=== PATIENT | male | born 1930 | race Caucasian/White ===

== ENCOUNTER 2016-05-07 17:57 | Emergency (ER) | payer OTHER, BC | END 2016-05-07 18:07 | disposition home or self-care (01) | LOC: CED 17:57 | DX: Z53.8 Procedure and treatment not carried out for other reasons (principal) ==

== ENCOUNTER 2016-05-07 18:29 | Emergency (ER) | payer OTHER, BC ==
[2016-05-07 18:40] VITALS: BP 151/85; TEMP 97.7; O2SAT 91
--- NOTE | 2016-05-07 18:44 | EDPHY ---
H & P Time Seen by Provider: 05/07/16 18:41 HPI/ROS: CHIEF COMPLAINT: Testicle swelling for 1 week HISTORY OF PRESENT ILLNESS: Patient presents with right testicle swelling which has been present for a week and is increasingly today. Symptoms are mild to moderate and worse with palpation but not associated with nausea vomiting or fever. No new urinary symptoms. He self catheterizes and describes urine production, output, color, and odor being stable. No recent injury or trauma. REVIEW OF SYSTEMS: Eye: no change in vision ENT: no sore throat Cardiac: no chest pain or syncope Pulmonary: no cough or SOB Abdomen: no vomiting, diarrhea, abdominal pain Musculoskeletal: Chronic back pain Skin: no rash Neuro: no headache Constitutional: no fever : no urinary symptoms A comprehensive 10 point review of systems is otherwise negative aside from elements mentioned in the history of present illness. PAST MEDICAL HISTORY: Discharge summary dated 07/18/2015 personally reviewed. Includes hyponatremia, chronic pain, urinary retention, hypertension. 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 Social history: Here with and son and [id number]. General Appearance: Alert and conversant, cooperative. Eyes: No scleral icterus. ENT, Mouth: Normal mucous membranes. Respiratory: Normal respiratory effort, breath sounds equal, lungs are clear to auscultation. Cardiovascular: Regular rate and rhythm. Gastrointestinal: Abdomen is soft and non tender. Male : Right testicle is vertical lie but slightly enlarged swollen and tender. No skin changes. No eschar erythema blisters or discoloration in the perineal area. Neurological: Alert and oriented x3. Normally conversant. Able to stand with a walker and transfer into bed. Skin: Warm and dry, no rashes. Musculoskeletal: Patient has spinal kyphosis. Psychiatric: Not agitated. Emergency Department course/MDM: I think it is unlikely that this represents Monica gangrene. Right testicle slightly red and swollen but no other surrounding skin changes, no crepitus on palpation. No history of diabetes. Plan for urinalysis and testicular ultrasound. 2000: Results discussed the patient and family. Urology follow-up next week if not improving. Urinalysis with white blood cells and bacteria, with testicular swelling will treat for UTI with oral Keflex and send a culture. Smoking Status: Former smoker Constitutional: Initial Vital Signs Temperature (C) 36.5 C 05/07/16 18:37 Heart Rate 87 05/07/16 18:37 Respiratory Rate 18 05/07/16 18:37 Blood Pressure 151/85 H 05/07/16 18:37 O2 Sat (%) 91 L 05/07/16 18:37 O2 Delivery Mode Room Air Allergies/Adverse Reactions: No Known Allergies Allergy (Unverified 08/12/10 16:18) Home Medications: Medication Instructions Recorded Lisinopril [Zestril 10 mg (*)] 10 mg PO DAILY 07/23/15 Multivitamins [Multivitamin (*)] 1 each PO DAILY 07/23/15 Polyethylene Glycol 3350 [Miralax 17 gm PO DAILY 07/23/15 17 gm (*)] Pregabalin [Lyrica 75mg (*)] 150 mg PO BID 07/23/15 Tamsulosin HCl [Flomax 0.4 MG (*)] 0.4 mg PO DAILY20 07/23/15 oxyCODONE IR [Oxycodone Ir (*)] 15 mg PO Q4 PRN 07/23/15 oxyCODONE CR [Oxycontin] 20 mg PO BID #0 tab 07/26/15 Cephalexin [Keflex] 500 mg PO QID #28 cap 05/07/16 Medical Decision Making - Diagnostics Imaging: Ultrasound reviewed with Nikhil at 7:35 p.m. shows large right hydrocele otherwise normal. No mass normal epididymitis and no torsion. Differential Diagnosis: Differential considered including but not limited to UTI, testicular torsion, testicular mass, orchitis, hydrocele, epididymitis. - Data Points Laboratory Results: 05/07/16 19:50 Urine Color YELLOW Urine Appearance HAZY Urine pH 5.0 (5.0-7.5) Ur Specific [place] 1.011 (1.002-1.030) Urine Protein NEGATIVE (NEGATIVE) Urine Ketones NEGATIVE (NEGATIVE) Urine Blood NEGATIVE (NEGATIVE) Urine Nitrate NEGATIVE (NEGATIVE) Urine Bilirubin NEGATIVE (NEGATIVE) Urine Urobilinogen NEGATIVE EU EU (0.2-1.0) Ur Leukocyte Esterase 2+ H (NEGATIVE) Urine RBC 3-5 /hpf H /hpf (0-3) Urine WBC 15-25 /hpf H /hpf (0-3) Ur Epithelial Cells NONE SEEN /lpf /lpf (NONE-1+) Urine Bacteria 2+ /hpf H /hpf (NONE SEEN) Ur Culture Indicated? INDICATED H (NI) Urine Glucose NEGATIVE (NEGATIVE) Medications Given: Discontinued Medications Cephalexin HCl (Keflex) 500 mg PO EDNOW ONE PRN Reason: Protocol Stop: 05/07/16 20:13 Last Admin: 05/07/16 20:15 Dose: 500 mg Departure - Departure Disposition: Home, Routine, Self-Care Clinical Impression: Hydrocele, right Condition: Good Instructions: Hydrocele (ED) Referrals: Shilo Olivera MD [Primary Care Provider] - As per Instructions Chacho Jones MD [Medical Doctor] - 5-7 days, if not improved Prescriptions: Cephalexin [Keflex] 500 mg PO QID #28 cap
[2016-05-07 20:04] LABS: COLOR YELLOW; LEUKOCYTE ESTERASE,URINE 2+ (NEGATIVE); NITRITE,URINE NEGATIVE (NEGATIVE)
[2016-05-07 20:07] LABS: BACTERIA 2+ /hpf (NONE SEEN); WBC,URINE 15-25 /hpf (0-3)
[2016-05-07] MEDS ORDERED: CEPHALEXIN 500 MG CAP PO ONE (20:12)
[2016-05-07 20:21] VITALS: PULSE 82; RESP 20
== END 2016-05-07 20:21 | disposition home or self-care (01) ==
DX: N43.3 Hydrocele, unspecified (principal); I10 Essential (primary) hypertension; Z87.891 Personal history of nicotine dependence

== ENCOUNTER 2016-07-06 12:16 | Observation (INO) | payer OTHER, BC ==
[2016-07-06] MEDS ORDERED: NS 500 ML IV ONE (13:34)
[2016-07-06] MEDS ORDERED: ASPIRIN 81 MG CHEWABLE TAB PO ONE (13:34)
--- NOTE | 2016-07-06 13:34 | EDPHY ---
H & P Time Seen by Provider: 07/06/16 13:05 HPI/ROS: CHIEF COMPLAINT: Lethargy "I do not feel well" HISTORY OF PRESENT ILLNESS: Patient is an 85-year-old male who presents emergency department with generalized complaints. The patient states that he has not felt well for the past 1-2 days. His daughter was concerned that he may be stressed due to recent move from 1 assisted living to another. They moved yesterday. He missed his medications last evening. Oxygen was not yet delivered and he was off his oxygen yesterday as well. The patient describes a general feeling of fatigue and weakness. No fevers or chills. No cough shortness of breath. No chest pain. No nausea vomiting. No diarrhea. REVIEW OF SYSTEMS: My complete review of systems is negative except as mentioned in the HPI. Past Medical/Surgical History: Includes hyponatremia, chronic pain, urinary retention, hypertension, biliary abnormal Past surgical history: Back surgery, Whipple procedure Social history: The patient lives in a new residential facility. It is a hybrid between assisted living in [place]. Smoking Status: Former smoker Physical Exam: Vitals noted GENERAL: No acute distress, alert. Cooperative. Eyes closed. Opens eyes to questioning. HEENT: Eyes normal to inspection, normal pharynx, mild dehydration. NECK: No thyromegaly, no lymphadenopathy, supple. RESPIRATORY: Coarse breath sounds bilaterally, no rales, rhonchi or wheezing. CVS: Regular rate and rhythm, no rubs, murmurs, or gallops. ABDOMEN: Soft, nontender, nondistended, no organomegaly. Benign BACK: Normal to inspection, no CVA tenderness. SKIN: Normal color, no rash, warm, dry. No pallor. EXTREMITIES: No pedal edema, no calf tenderness, no Homans sign or cords, no joint swelling. NEURO/PSYCH: Alert and oriented, normal mood and affect, normal motor sensory exam. No obvious cranial nerve deficit. Constitutional: Initial Vital Signs O2 Sat (%) 96 07/06/16 12:20 O2 Delivery Mode Nasal Cannula O2 (L/minute) 2 Allergies/Adverse Reactions: No Known Allergies Allergy (Unverified 08/12/10 16:18) Home Medications: Medication Instructions Recorded Lisinopril [Zestril 10 mg (*)] 10 mg PO DAILY 07/23/15 Multivitamins [Multivitamin (*)] 1 each PO DAILY 07/23/15 Polyethylene Glycol 3350 [Miralax 17 gm PO DAILY 07/23/15 17 gm (*)] Pregabalin [Lyrica 75mg (*)] 150 mg PO BID 07/23/15 Tamsulosin HCl [Flomax 0.4 MG (*)] 0.4 mg PO DAILY20 07/23/15 oxyCODONE IR [Oxycodone Ir (*)] 15 mg PO Q4 PRN 07/23/15 oxyCODONE CR [Oxycontin] 20 mg PO BID #0 tab 07/26/15 Cephalexin [Keflex] 500 mg PO QID #28 cap 05/07/16 Medical Decision Making - Diagnostics EKG Interpretation: EKG shows normal sinus rhythm, normal rate, normal axis, normal intervals. There are no ST or T-wave abnormalities. EKG is normal as interpreted by me. Imaging Results: Imaging Impressions Chest X-Ray 07/06/16 13:34 Impression: 1. Stable presumed rounded atelectasis within the lingula laterally. 2. Mild hazy increased markings at the right lung base that could represent mild dependent edema versus less likely pneumonitis. 3. Chronic bilateral pleural effusions left side greater than right. ED Course/Re-evaluation: In the emergency department I discussed possible etiologies with the patient and his family. I answered all her questions. IV was placed. Patient was given normal saline 500 mL IV for hydration. Laboratory studies, EKG and chest x-ray were ordered. I reviewed the patient's laboratory studies. The patient's potassium is low at 3.1. He was given potassium chloride 60 mEq orally. The patient has a normal CBC. Patient's urine is pending. Troponin is negative. Chest x-ray: The patient has stable pleural effusion. There is mild atelectasis. The patient has mild pneumonitis. I rechecked the patient. He still was sitting in his bed with his eyes closed. He is unwilling to get up. Patient's daughter was in the room. I took further history. She states the patient was unable to get himself out of bed this morning. This is not typical. She was concerned this was secondary the moved. I discussed this with Dr. Land. She accepts the patient. She recommended an ABG. This was ordered. Differential Diagnosis: My differential includes but is not limited to electrolyte abnormality, sugar abnormality, urinary tract infection, dehydration, pneumonia, bronchitis, anxiety, CVA, ACS, acute OH - Data Points Laboratory Results: Laboratory Results 07/06/16 Unknown 07/06/16 Unknown 07/06/16 07/06/16 07/06/16 Unknown Unknown 14:45 WBC 7.47 10^3/uL 10^3/uL (3.80-9.50) RBC 4.72 10^6/uL 10^6/uL (4.40-6.38) Hgb 13.7 g/dL g/dL (13.7-17.5) Hct 41.4 % % (40.0-51.0) MCV 87.7 fL fL (81.5-99.8) MCH 29.0 pg pg (27.9-34.1) MCHC 33.1 g/dL g/dL (32.4-36.7) RDW 14.4 % % (11.5-15.2) Plt Count 237 10^3/uL 10^3/uL (150-400) MPV 10.4 fL fL (8.7-11.7) Neut % (Auto) 78.0 % H % (39.3-74.2) Lymph % (Auto) 15.4 % % (15.0-45.0) [place] % (Auto) 5.5 % % (4.5-13.0) Eos % (Auto) 0.5 % L % (0.6-7.6) Baso % (Auto) 0.1 % L % (0.3-1.7) Nucleat RBC Rel Count 0.0 % % (0.0-0.2) Absolute Neuts (auto) 5.82 10^3/uL 10^3/uL (1.70-6.50) Absolute Lymphs (auto) 1.15 10^3/uL 10^3/uL (1.00-3.00) Absolute Monos (auto) 0.41 10^3/uL 10^3/uL (0.30-0.80) Absolute Eos (auto) 0.04 10^3/uL 10^3/uL (0.03-0.40) Absolute Basos (auto) 0.01 10^3/uL L 10^3/uL (0.02-0.10) Absolute Nucleated RBC 0.00 10^3/uL 10^3/uL (0-0.01) Immature Gran % 0.5 % % (0.0-1.1) Immature Gran # 0.04 10^3/uL 10^3/uL (0.00-0.10) Sodium 135 mEq/L mEq/L (134-144) Potassium 3.1 mEq/L L mEq/L (3.5-5.2) Chloride 95 mEq/L L mEq/L (97-110) Carbon Dioxide 29 mEq/l mEq/l (22-31) Anion Gap 11 mEq/L mEq/L (8-16) BUN 11 mg/dL mg/dL (7-23) Creatinine 0.7 mg/dL mg/dL (0.7-1.3) Estimated GFR > 60 Glucose 112 mg/dL H mg/dL (70-100) Calcium 9.2 mg/dL mg/dL (8.5-10.4) Troponin I < 0.012 ng/mL ng/mL (0-0.034) Urine Color Pending Urine Appearance Pending Urine pH Pending Ur Specific [place] Pending Urine Protein Pending Urine Ketones Pending Urine Blood Pending Urine Nitrate Pending Urine Bilirubin Pending Urine Urobilinogen Pending Ur Leukocyte Esterase Pending Urine Glucose Pending Medications Given: Discontinued Medications Aspirin (Aspirin) 324 mg PO EDNOW ONE Stop: 07/06/16 13:35 Last Admin: 07/06/16 14:02 Dose: 324 mg Sodium Chloride (Ns) 500 mls @ 0 mls/hr IV ONCE ONE PRN Reason: As Directed Stop: 07/06/16 13:35 Last Admin: 07/06/16 14:02 Dose: 500 mls Potassium Chloride (Potassium Chloride Oral Liquid) 60 meq PO EDNOW ONE Stop: 07/06/16 14:25 Last Admin: 07/06/16 14:33 Dose: 60 meq Departure - Departure Disposition: [facility] Clinical Impression: Weakness, Hypokalemia, Hypercalcemia Condition: Good Referrals: Patient,NotPresent [Unknown] - As per Instructions
[2016-07-06 13:39] LABS: % IMMATURE GRANULYOCYTES 0.5 % (0.0-1.1); ABSOLUTE IMMATURE GRANULOCYTES 0.04 10^3/uL (0.00-0.10); ADD DIFF? NO; ADD MORPH? NO; ADD SCAN? NO; ATYPICAL LYMPHOCYTE FLAG 0 (0-99); FRAGMENT RBC FLAG 0 (0-99); HEMATOCRIT 41.4 % (40.0-51.0); HEMOGLOBIN 13.7 g/dL (13.7-17.5); LEFT SHIFT FLG 0 (0-99); LIPEMIA HEMOLYSIS FLAG 80 (0-99); MEAN CELL HEMOGLOBIN CONCENTR. 33.1 g/dL (32.4-36.7); MEAN CELL VOLUME 87.7 fL (81.5-99.8); MEAN PLATELET VOLUME 10.4 fL (8.7-11.7); PLATELET CLUMPS FLAG 0 (0-99); PLATELET COUNT 237 10^3/uL (150-400); RED BLOOD CELL COUNT 4.72 10^6/uL (4.40-6.38); RED CELL DISTRIBUTION WIDTH 14.4 % (11.5-15.2)
[2016-07-06 13:46] LABS: ANION GAP 11 mEq/L (8-16); CALCIUM 9.2 mg/dL (8.5-10.4); CARBON DIOXIDE 29 mEq/l (22-31); CHLORIDE 95 mEq/L (97-110); CREATININE 0.7 mg/dL (0.7-1.3); GLOMERULAR FILTRATION RATE > 60; GLUCOSE 112 mg/dL (70-100); POTASSIUM 3.1 mEq/L (3.5-5.2); SODIUM 135 mEq/L (134-144)
[2016-07-06 13:58] LABS: TROPONIN I < 0.012 ng/mL (0-0.034)
--- NOTE | 2016-07-06 14:00 | CPEKG ---
Heart Rate: 86 RR Interval: 698 P-R Interval: 196 QRSD Interval: 102 QT Interval: 392 QTC Interval: 469 P [place]: 26 QRS [place]: 55 T Wave [place]: 9 EKG Severity - BORDERLINE ECG - EKG Impression: SINUS RHYTHM EKG Impression: PROBABLE LEFT ATRIAL ABNORMALITY Electronically Signed By: Natasha Fox 06-Jul-2016 15:32:58
[2016-07-06] MEDS ORDERED: POTASSIUM CL 20 MEQ/15 ML UDCUP PO ONE (14:24)
[2016-07-06 15:16] LABS: COLOR YELLOW; LEUKOCYTE ESTERASE,URINE TRACE (NEGATIVE); NITRITE,URINE NEGATIVE (NEGATIVE)
[2016-07-06 15:27] LABS: RBC,URINE 15-25 /hpf (0-3)
[2016-07-06 15:52] LABS: BASE EXCESS 5.2 mEq/L (-2.5-2.5); BICARBONATE 30 mEq/L (22-26); MEASURED OXYGEN SATURATION 98 % (92-95); PCO2 46 mmHg (34-38); PO2 108 mmHg (65-75); TCO2 31 mEq/L (23-27)
[2016-07-06 15:54] LABS: O2 CONCENTRATION LITERS 2.5 LITERS
[2016-07-06] MEDS ORDERED: ACETAMINOPHEN 325 MG TAB PO PRN (17:24)
[2016-07-06] MEDS ORDERED: ONDANSETRON 4 MG/2 ML VIAL IVP PRN (17:24)
[2016-07-06] MEDS ORDERED: ONDANSETRON DISINTEGRATING 4 MG TAB PO PRN (17:24)
[2016-07-06] MEDS ORDERED: POLYETHYLENE GLYCOL 3350 17 GM PKT PO PRN (17:54)
[2016-07-06] MEDS ORDERED: LACTULOSE 20 GM/30 ML UDCUP PO PRN (17:54)
[2016-07-06] MEDS ORDERED: BISACODYL 10 MG SUPP PR PRN (17:54)
[2016-07-06] MEDS ORDERED: MAGNESIUM HYDROXIDE 30 ML UDCUP PO PRN (17:54)
--- NOTE | 2016-07-06 18:59 | GHP ---
[f rep st] HISTORY AND PHYSICAL DATE OF ADMISSION: 07/06/2016 CHIEF COMPLAINT: Abdominal pressure, "Not feeling well." HISTORY OF PRESENT ILLNESS: Patient is an 85-year-old male with history of hyponatremia, chronic back pain from spinal stenosis, urinary retention, presenting with abdominal pressure starting today. He thinks pressure may be due to stress of moving from his assisted living to [place] yesterday. He did miss his home medications last evening and did not have his oxygen delivered, so was off that. No bowel movement in 2-3 days. Reports such large stools at home that he has to cut them with a knife to prevent clogging the toilet. He denies any fevers, chills, or sweats. No nausea, vomiting, or diarrhea. No chest pain. Has been weaning off his pain medications with the use of Nucynta. Has previously been on OxyContin. Reports decreased p.o. intake over the last couple days with the stress of moving. REVIEW OF SYSTEMS: I completed a 10-point review of systems, negative except as noted in HPI. PAST MEDICAL HISTORY: 1. Hypertension, diastolic heart failure. 2. Anemia of chronic disease. 3. Thyroid nodule. 4. History of noncancerous pancreatic mass. 5. Spinal stenosis. 6. Chronic hypoxemic respiratory failure. Using oxygen at night. PAST SURGICAL HISTORY: 1. 8 back surgeries. 2. Whipple procedure. 3. Neck surgery. FAMILY HISTORY: Father with colon cancer. Mother age at 97 of natural causes. ALLERGIES: No known drug allergies. HOME MEDICATIONS: 1. Oxycodone 15 mg b.i.d. p.r.n. 2. Vitamin B. 3. Nucynta 250 mg q.12. 4. Flomax 0.4. 5. Senna. 6. Pregabalin 150 mg b.i.d. 7. Multivitamin. 8. Hydrochlorothiazide 25. 9. Iron sulfate 325 mg daily. PHYSICAL EXAM: VITAL SIGNS: Temperature 36.5, blood pressure 145/82, heart rate 70s, respirations 18, 95% on 2 L. GENERAL: Patient is sitting up in bed. No acute distress. HEENT: PERRLA. EOMI. Oropharynx clear. CV: Regular rate and rhythm. No murmurs, gallops, or rubs. LUNGS: Clear to auscultation bilaterally. ABDOMEN: Soft. Mild umbilical tenderness to palpation. Quiet bowel sounds. No guarding or rebound. : No suprapubic tenderness. MUSCULOSKELETAL: Moving all 4 extremities. PSYCH: Alert and oriented x3. Very pleasant. LAB: Sodium 135, potassium 3.1, chloride 95, bicarb 30, creatinine 0.7, glucose 112, calcium 9.2. Troponin less than 0.012. TSH is pending. Blood gas : PCO2 of 46, PO2 of 108, pH is 7.4. UA: Trace leuk esterase, RBCs 15-25. WBC 7.4, hemoglobin 13, hematocrit 41, platelets 237. DIAGNOSTIC DATA: EKG is personally reviewed by me. Normal sinus rhythm. Some ST flattening in V2, V3. Chest x-ray is personally reviewed by me. Chronic bilateral pleural effusion, left side greater than right. ASSESSMENT/PLAN: 1. Abdominal pain: Differential includes gastritis, gastroesophageal reflux disease versus anginal equivalent. EKG and troponin are negative for ischemia. Will add LFTs as well as an abdominal x-ray, as patient does report constipation. Low suspicion for infection, as patient is afebrile without leukocytosis. If pain worsens, consider a CT of the abdomen. Add bowel regimen. 2. Fatigue: check TSH 3. Compensated diastolic heart failure: No evidence of volume overload. 4. Anemia of chronic disease. Continue iron. 5. History of pancreatic mass: was benign, s/p Whipple. 6. Spinal stenosis. Continue his home pain medications with bowel regimen, which is likely contributing to his constipation. 7. Diet: Regular. 8. Deep venous thrombosis prophylaxis: Lovenox. 9. Patient warrants observation, admission, given acute abdominal pain. Will trial laxatives and x-ray pending. /[id number]/MODL MTDD
[2016-07-06 19:46] LABS: ALBUMIN 3.3 g/dL (3.5-5.0); BILIRUBIN-CONJUGATED 0.4 mg/dL (0.0-0.5); BILIRUBIN-UNCONJUGATED 0.6 mg/dL (0.0-1.1); TOTAL PROTEIN 6.5 g/dL (6.3-8.2)
[2016-07-06] MEDS ORDERED: TAMSULOSIN HCL 0.4 MG CAP PO SCH (20:00)
[2016-07-06] MEDS ORDERED: TAPENTADOL HCL PO SCH (21:00)
[2016-07-06] MEDS: PREGABALIN 150 MG CAP PO SCH (21:07)
[2016-07-06] MEDS: oxyCODONE IR 15 MG TAB PO PRN (21:10)
[2016-07-07 04:56] VITALS: O2SAT 95
[2016-07-07 06:29] LABS: ANION GAP 6 mEq/L (8-16); CALCIUM 8.4 mg/dL (8.5-10.4); CARBON DIOXIDE 31 mEq/l (22-31); CHLORIDE 98 mEq/L (97-110); CREATININE 0.7 mg/dL (0.7-1.3); GLOMERULAR FILTRATION RATE > 60; GLUCOSE 83 mg/dL (70-100); POTASSIUM 3.5 mEq/L (3.5-5.2); SODIUM 135 mEq/L (134-144)
[2016-07-07 08:49] VITALS: BP 157/83; PULSE 90; RESP 18; TEMP 98.1
[2016-07-07] MEDS: PREGABALIN 150 MG CAP PO SCH (08:57)
[2016-07-07] MEDS ORDERED: SENNOSIDES/DOCUSATE SODIUM TAB PO SCH (09:00)
[2016-07-07] MEDS ORDERED: HYDROCHLOROTHIAZIDE 25 MG TAB PO SCH (09:00)
[2016-07-07] MEDS ORDERED: MULTIVITAMINS 1 EACH TAB PO SCH (09:00)
[2016-07-07] MEDS ORDERED: VITAMIN B COMPLEX 1 EA CAP/TAB PO SCH (09:00)
[2016-07-07] MEDS ORDERED: FERROUS SULFATE 325 MG TAB PO SCH (09:00)
[2016-07-07] MEDS ORDERED: ENOXAPARIN 40 MG/0.4 ML SYR SC SCH (09:00)
[2016-07-07] MEDS: oxyCODONE IR 15 MG TAB PO PRN ×2 (09:04→14:55)
--- NOTE | 2016-07-07 14:23 | PDIAF ---
- Diagnosis Diagnosis: Abdominal Pain Code Status: Full Code - Medication Management Discharge Medications: Medications to Continue on Transfer Multivitamins [Multivitamin (*)] 1 each PO DAILY 07/23/15 [Last Taken 07/22/15] Tamsulosin HCl [Flomax 0.4 MG (*)] 0.4 mg PO DAILY20 07/23/15 [Last Taken ] oxyCODONE IR [Oxycodone Ir (*)] 15 mg PO BID PRN 07/23/15 [Last Taken 07/06/16] Ferrous Sulfate [Ferrous Sulf 325 MG (*)] 325 mg PO DAILY 07/06/16 [Last Taken Unknown] Hydrochlorothiazide [HCTZ (*)] 25 mg PO DAILY 07/06/16 [Last Taken Unknown] Pregabalin [Lyrica] 150 mg PO BID 07/06/16 [Last Taken 07/06/16] Sennosides/Docusate Sodium [Senna-S Tablet] 1 each PO DAILY 07/06/16 [Last Taken Unknown] Tapentadol HCl [Nucynta ER] 250 mg PO Q12 07/06/16 [Last Taken 07/06/16] Vitamin B Complex [Super B-50 Complex] 1 each PO DAILY 07/06/16 [Last Taken Unknown] Discharge Medications: Refer to the Discharge Home Medication list for PRN reason. - Orders Services needed: Home Care, Physical Therapy, Occupational Therapy Home Care Face to Face: I certify that this patient was under my care and that I had the required [id number] encounter meeting the encounter requirements on the discharge day. My findings support the fact that the patient is homebound as defined in CMS Chapter 7 Medicare Benefits Manual 30.1.1, The condition of the patient is such that there exists a normal inability to leave home and consequently, leaving home would require a considerable and taxing effort. - Follow Up Care Current Providers and Referrals: Patient,NotPresent [Unknown] - As per Instructions
--- NOTE | 2016-07-07 14:41 | GDS ---
[f rep st] DISCHARGE SUMMARY FINAL DIAGNOSES: 1. Abdominal pain. 2. Constipation. 3. Chronic pain, on continuous narcotics. 4. Compensated diastolic heart failure. 5. Anemia. 6. History of pancreatic mass, status post Whipple. 7. Spinal stenosis. HOSPITAL COURSE: An 85-year-old man who was admitted with abdominal pain, an abdominal x-ray which showed constipation. Notably, the night before his admission he had missed taking all of his medica tions, including pain medications as well as laxatives and stool softeners. He had a bowel movement later in the evening after he was admitted. When I see him he is comfortable, with no more abdomin al pain. He has ambulated with Physical Therapy, who recommends home PT/OT. I think the reason for his abdominal pain is likely constipation versus missing his pain medications. We will get him byron k on his normal long-term narcotics including Nucynta 250 b.i.d., as well as oxycodone 15 p.r.n. He is discharged in stable condition. /[id number]/MODL
== END 2016-07-07 16:04 | disposition home or self-care (01) ==
LOC: EDUNIT# → F1N 19:35
PROVIDERS: ADMIT Internal Medicine; ATTEND Internal Medicine
DX: K59.00 Constipation, unspecified (principal); R53.1 Weakness; J90 Pleural effusion, not elsewhere classified; E87.6 Hypokalemia; E83.52 Hypercalcemia; I10 Essential (primary) hypertension; J96.11 Chronic respiratory failure with hypoxia; I50.30 Unspecified diastolic (congestive) heart failure; D64.9 Anemia, unspecified; M48.00 Spinal stenosis, site unspecified; G89.29 Other chronic pain; Z87.891 Personal history of nicotine dependence
CPT/HCPCS: 71020; 74020; 93005; 97161; 99285; G0378; G8978; G8979; G8980; J1650

== ENCOUNTER → 2016-08-17 | Outpatient (CLI) | payer OTHER, BC | LOC: FIMAGING 15:31 | PROVIDERS: ATTEND Internal Medicine | DX: J98.11 Atelectasis (principal); J90 Pleural effusion, not elsewhere classified; I51.7 Cardiomegaly ==

== ENCOUNTER → 2016-08-24 | Outpatient (CLI) | payer OTHER, BC | LOC: FIMAGING 14:38 | PROVIDERS: ATTEND Internal Medicine | DX: J90 Pleural effusion, not elsewhere classified (principal) ==

== ENCOUNTER 2016-09-01 14:13 | Inpatient (IN) | payer OTHER, BC ==
--- NOTE | 2016-09-01 14:33 | CPEKG ---
Heart Rate: 99 RR Interval: 606 P-R Interval: 188 QRSD Interval: 112 QT Interval: 376 QTC Interval: 483 P [place]: 26 QRS [place]: 49 T Wave [place]: 8 EKG Severity - ABNORMAL ECG - EKG Impression: SINUS RHYTHM EKG Impression: VENTRICULAR PREMATURE COMPLEX EKG Impression: LEFT ATRIAL ABNORMALITY EKG Impression: NONSPECIFIC INTRAVENTRICULAR CONDUCTION DELAY Electronically Signed By: Geraldo Brar 01-Sep-2016 16:08:49
--- NOTE | 2016-09-01 14:42 | EDPHY ---
H & P Time Seen by Provider: 09/01/16 14:31 HPI/ROS: Chief complaint. Altered mental status HPI. 85-year-old male here for altered mental status. He is normally alert and lucid per his and son. Today he woke up more sleepy and lethargic and confused than usual. Generally weak and not able to ambulate. Normally he walks from his apartment at the [place] to the dining [place] and[place] and has been unable to do this today. He does complain of back and abdominal pain though this is not unusual per and son as he has chronic back pain as well as chronic abdominal pain. He normally takes oxycodone IR but has not taken any medication today. His is not concerned about him taking too many medications. He has recently changed from using oxygen just at night to oxygen during the day as well. No recent fever cough. He self catheterizes. He has chest CT 1 week ago for fluid in his lungs that was apparently normal per his . ROS Constitutional. Generalized weakness Eyes. no problems with vision ENT. no sore throat, no nasal drainage Cardiovascular. no chest pain Respiratory. no shortness of breath, no cough Abdominal. Abdominal pain without vomiting . no problems urinating or diarrhea MS. Back pain Skin. no rash Lymph. no swollen glands Neuro. Can not walk. Confused. Past Medical/Surgical History: Past medical history is significant for back surgery with chronic narcotics. Home oxygen, self catheterization. A Whipple surgery 6 years ago forogged bile duct. Social History: , nonsmoker, no alcohol Smoking Status: Former smoker Physical Exam: General Appearance: Alert well-developed male moderate distress vital signs are stable. Afebrile Eyes: Pupils equal and round no pallor or injection. ENT, Mouth: Mucous membranes are moist. Respiratory: There are no retractions, lungs are clear to auscultation. Cardiovascular: Regular rate and rhythm. Gastrointestinal: Abdomen is diffusely tender. There is no masses. Normal bowel sounds. Neurological: Awake and alert, sensory and motor exams grossly normal. Skin: Warm and dry, no rashes. Musculoskeletal: Neck is supple nontender. Extremities symmetrical, full range of motion. Psychiatric: Oriented only to person Constitutional: Initial Vital Signs Temperature (C) 36.9 C 09/01/16 14:20 Heart Rate 99 09/01/16 14:20 Respiratory Rate 16 09/01/16 14:20 Blood Pressure 177/95 H 09/01/16 14:20 O2 Sat (%) 93 09/01/16 14:20 O2 Delivery Mode Nasal Cannula O2 (L/minute) 2.5 Allergies/Adverse Reactions: No Known Allergies Allergy (Verified 09/01/16 15:34) Home Medications: Medication Instructions Recorded Ferrous Sulfate [Ferrous Sulf 325 325 mg PO DAILY 09/01/16 MG (*)] Hydrochlorothiazide [HCTZ (*)] 25 mg PO DAILY 09/01/16 Multivitamins [Multivitamin (*)] 1 each PO DAILY 09/01/16 Pregabalin [Lyrica] 150 mg PO BID 09/01/16 Sennosides/Docusate Sodium 1 each PO DAILY PRN 09/01/16 [Senna-S Tablet] Tamsulosin HCl [Flomax 0.4 MG (*)] 0.4 mg PO DAILY 09/01/16 Tapentadol HCl [Nucynta ER] 250 mg PO Q12 09/01/16 Vitamin B Complex [B Complex] 1 each PO DAILY 09/01/16 oxyCODONE IR [Oxycodone Ir (*)] 15 mg PO BID 09/01/16 Medical Decision Making - Diagnostics EKG Interpretation: EKG interpreted by me shows normal sinus rhythm with normal interval and axis. QRS is normal without significant ST elevation or depression. No arrhythmia. The rate is 99 Imaging Results: Imaging Impressions Abdomen X-Ray 09/01/16 15:03 Impression: Severe constipation. Chest X-Ray 09/01/16 15:03 Impression: 1. No change in pleuroparenchymal opacity in the left lower lobe and patchy opacity in the right lower lobe. 2. Cardiomegaly. Head CT 09/01/16 15:03 Impression: 1. Moderate atrophy. 2. No acute hemorrhage, hydrocephalus, or mass effect. 3. Cerebrovascular atherosclerosis. 4. No definite acute infarct. 5. Mild microvascular ischemic gliosis. 6. No epidural or subdural hematoma. Findings and recommendations discussed with Emergency Department physician, Geraldo Brar M.D., at 1540 hours, on September 01, 2016. Final report concurs with initial preliminary interpretation. Head CT shows significant atrophy but otherwise nonacute. This is reviewed by me and discussed with Dr. Oconnell Procedures: IV normal saline. Morphine for pain. Zofran for nausea. Catheterization with indwelling catheter ED Course/Re-evaluation: On re-evaluation the patient remains stable but unchanged. He remains confused. I discussed imaging, EKG, laboratory evaluation with the patient and his and son. We discussed treatment plan including recommendation for admission and further evaluation. They expressed understanding and agreement. I consulted and discussed the case with Dr. Gillis, hospitalist, who agrees to the admission Differential Diagnosis: I considered sepsis including pneumonia and urinary tract etiologies. However these do appear to be normal. I have considered patient could have taken too many medications causing confusion. However his is quite sure that he has not taken any extra OxyContin. I considered intracranial bleeding though the initial head CT is normal. I have considered still neurologic etiology as the patient has severe atrophy on his head CT. - Data Points Laboratory Results: Laboratory Results 09/01/16 14:00 09/01/16 14:00 09/01/16 09/01/16 09/01/16 15:15 15:05 14:00 WBC RBC Hgb Hct MCV MCH MCHC RDW Plt Count MPV Neut % (Auto) Lymph % (Auto) [place] % (Auto) Eos % (Auto) Baso % (Auto) Nucleat RBC Rel Count Absolute Neuts (auto) Absolute Lymphs (auto) Absolute Monos (auto) Absolute Eos (auto) Absolute Basos (auto) Absolute Nucleated RBC Immature Gran % Immature Gran # PT INR APTT VBG Lactic Acid 0.9 mmol/L mmol/L (0.7-2.1) Sodium Potassium Chloride Carbon Dioxide Anion Gap BUN Creatinine Estimated GFR Glucose Calcium Total Bilirubin Conjugated Bilirubin Unconjugated Bilirubin AST ALT Alkaline Phosphatase Troponin I Total Protein Albumin Lipase Carcinoembryonic Ag 5.39 ng/mL H ng/mL (0.00-3.00) TSH Urine Color YELLOW Urine Appearance CLEAR Urine pH 8.0 H (5.0-7.5) Ur Specific [place] 1.008 (1.002-1.030) Urine Protein NEGATIVE (NEGATIVE) Urine Ketones 1+ H (NEGATIVE) Urine Blood NEGATIVE (NEGATIVE) Urine Nitrate NEGATIVE (NEGATIVE) Urine Bilirubin NEGATIVE (NEGATIVE) Urine Urobilinogen 2.0 EU H EU (0.2-1.0) Ur Leukocyte Esterase NEGATIVE (NEGATIVE) Urine RBC 1-3 /hpf /hpf (0-3) Urine WBC 1-3 /hpf /hpf (0-3) Ur Epithelial Cells TRACE /lpf /lpf (NONE-1+) Urine Glucose NEGATIVE (NEGATIVE) 09/01/16 09/01/16 09/01/16 14:00 14:00 14:00 WBC 7.22 10^3/uL 10^3/uL (3.80-9.50) RBC 5.13 10^6/uL 10^6/uL (4.40-6.38) Hgb 14.9 g/dL g/dL (13.7-17.5) Hct 44.9 % % (40.0-51.0) MCV 87.5 fL fL (81.5-99.8) MCH 29.0 pg pg (27.9-34.1) MCHC 33.2 g/dL g/dL (32.4-36.7) RDW 14.0 % % (11.5-15.2) Plt Count 243 10^3/uL 10^3/uL (150-400) MPV 10.7 fL fL (8.7-11.7) Neut % (Auto) 84.8 % H % (39.3-74.2) Lymph % (Auto) 9.0 % L % (15.0-45.0) [place] % (Auto) 5.7 % % (4.5-13.0) Eos % (Auto) 0.1 % L % (0.6-7.6) Baso % (Auto) 0.1 % L % (0.3-1.7) Nucleat RBC Rel Count 0.0 % % (0.0-0.2) Absolute Neuts (auto) 6.12 10^3/uL 10^3/uL (1.70-6.50) Absolute Lymphs (auto) 0.65 10^3/uL L 10^3/uL (1.00-3.00) Absolute Monos (auto) 0.41 10^3/uL 10^3/uL (0.30-0.80) Absolute Eos (auto) 0.01 10^3/uL L 10^3/uL (0.03-0.40) Absolute Basos (auto) 0.01 10^3/uL L 10^3/uL (0.02-0.10) Absolute Nucleated RBC 0.00 10^3/uL 10^3/uL (0-0.01) Immature Gran % 0.3 % % (0.0-1.1) Immature Gran # 0.02 10^3/uL 10^3/uL (0.00-0.10) PT 13.3 SEC SEC (12.0-15.0) INR 1.02 (0.83-1.16) APTT 32.0 SEC SEC (23.0-38.0) VBG Lactic Acid Sodium Potassium Chloride Carbon Dioxide Anion Gap BUN Creatinine Estimated GFR Glucose Calcium Total Bilirubin Conjugated Bilirubin Unconjugated Bilirubin AST ALT Alkaline Phosphatase Troponin I Total Protein Albumin Lipase Carcinoembryonic Ag TSH 0.383 uIU/mL L uIU/mL (0.465-4.680) Urine Color Urine Appearance Urine pH Ur Specific [place] Urine Protein Urine Ketones Urine Blood Urine Nitrate Urine Bilirubin Urine Urobilinogen Ur Leukocyte Esterase Urine RBC Urine WBC Ur Epithelial Cells Urine Glucose 09/01/16 14:00 WBC RBC Hgb Hct MCV MCH MCHC RDW Plt Count MPV Neut % (Auto) Lymph % (Auto) [place] % (Auto) Eos % (Auto) Baso % (Auto) Nucleat RBC Rel Count Absolute Neuts (auto) Absolute Lymphs (auto) Absolute Monos (auto) Absolute Eos (auto) Absolute Basos (auto) Absolute Nucleated RBC Immature Gran % Immature Gran # PT INR APTT VBG Lactic Acid Sodium 137 mEq/L mEq/L (134-144) Potassium 3.2 mEq/L L mEq/L (3.5-5.2) Chloride 95 mEq/L L mEq/L (97-110) Carbon Dioxide 31 mEq/l mEq/l (22-31) Anion Gap 11 mEq/L mEq/L (8-16) BUN 12 mg/dL mg/dL (7-23) Creatinine 0.7 mg/dL mg/dL (0.7-1.3) Estimated GFR > 60 Glucose 135 mg/dL H mg/dL (70-100) Calcium 9.3 mg/dL mg/dL (8.5-10.4) Total Bilirubin 1.2 mg/dL mg/dL (0.1-1.4) Conjugated Bilirubin 0.5 mg/dL mg/dL (0.0-0.5) Unconjugated Bilirubin 0.7 mg/dL mg/dL (0.0-1.1) AST 19 IU/L IU/L (17-59) ALT 30 IU/L IU/L (21-72) Alkaline Phosphatase 97 IU/L IU/L (38-126) Troponin I < 0.012 ng/mL ng/mL (0-0.034) Total Protein 7.2 g/dL g/dL (6.3-8.2) Albumin 3.7 g/dL g/dL (3.5-5.0) Lipase 23.0 IU/L IU/L (23-300) Carcinoembryonic Ag TSH Urine Color Urine Appearance Urine pH Ur Specific [place] Urine Protein Urine Ketones Urine Blood Urine Nitrate Urine Bilirubin Urine Urobilinogen Ur Leukocyte Esterase Urine RBC Urine WBC Ur Epithelial Cells Urine Glucose Medications Given: Discontinued Medications Sodium Chloride (Ns) 1,000 mls @ 0 mls/hr IV ONCE ONE; Wide Open PRN Reason: Protocol Stop: 09/01/16 15:03 Last Admin: 09/01/16 15:40 Dose: 1,000 mls Morphine Sulfate (Morphine) 6 mg IVP EDNOW ONE Stop: 09/01/16 15:03 Last Admin: 09/01/16 15:40 Dose: 3 mg Ondansetron HCl (Zofran) 4 mg IVP EDNOW ONE Stop: 09/01/16 15:03 Last Admin: 09/01/16 15:40 Dose: 4 mg Departure - Departure Disposition: [facility] In[facility] Acute Clinical Impression: Altered mental status Qualifiers: Altered mental status type: disorientation Qualified Code(s): R41.0 - Disorientation, unspecified Condition: Fair
[2016-09-01] MEDS ORDERED: NS 1,000 ML IV ONE (15:02)
[2016-09-01] MEDS ORDERED: ONDANSETRON 4 MG/2 ML VIAL IVP ONE (15:02)
[2016-09-01 15:11] LABS: % IMMATURE GRANULYOCYTES 0.3 % (0.0-1.1); ABSOLUTE IMMATURE GRANULOCYTES 0.02 10^3/uL (0.00-0.10); ADD DIFF? NO; ADD MORPH? NO; ADD SCAN? NO; ATYPICAL LYMPHOCYTE FLAG 0 (0-99); FRAGMENT RBC FLAG 0 (0-99); HEMATOCRIT 44.9 % (40.0-51.0); HEMOGLOBIN 14.9 g/dL (13.7-17.5); LEFT SHIFT FLG 0 (0-99); LIPEMIA HEMOLYSIS FLAG 80 (0-99); MEAN CELL HEMOGLOBIN CONCENTR. 33.2 g/dL (32.4-36.7); MEAN CELL VOLUME 87.5 fL (81.5-99.8); MEAN PLATELET VOLUME 10.7 fL (8.7-11.7); PLATELET CLUMPS FLAG 20 (0-99); PLATELET COUNT 243 10^3/uL (150-400); RED BLOOD CELL COUNT 5.13 10^6/uL (4.40-6.38)
[2016-09-01 15:20] LABS: ALANINE AMINOTRANSFERASE 30 IU/L (21-72); ALBUMIN 3.7 g/dL (3.5-5.0); ALKALINE PHOSPHATASE 97 IU/L (38-126); ANION GAP 11 mEq/L (8-16); ASPARTATE AMINOTRANSFERASE 19 IU/L (17-59); BILIRUBIN,TOTAL 1.2 mg/dL (0.1-1.4); BILIRUBIN-CONJUGATED 0.5 mg/dL (0.0-0.5); BILIRUBIN-UNCONJUGATED 0.7 mg/dL (0.0-1.1); CALCIUM 9.3 mg/dL (8.5-10.4); CARBON DIOXIDE 31 mEq/l (22-31); CHLORIDE 95 mEq/L (97-110); CREATININE 0.7 mg/dL (0.7-1.3); GLOMERULAR FILTRATION RATE > 60; GLUCOSE 135 mg/dL (70-100); POTASSIUM 3.2 mEq/L (3.5-5.2); SODIUM 137 mEq/L (134-144); TOTAL PROTEIN 7.2 g/dL (6.3-8.2)
[2016-09-01 15:30] LABS: COLOR YELLOW; LEUKOCYTE ESTERASE,URINE NEGATIVE (NEGATIVE); NITRITE,URINE NEGATIVE (NEGATIVE)
[2016-09-01 15:30] LABS: INR 1.02 (0.83-1.16); PROTIME(PATIENT) 13.3 SEC (12.0-15.0)
[2016-09-01 15:31] LABS: TROPONIN I < 0.012 ng/mL (0-0.034)
[2016-09-01] MEDS ORDERED: ONDANSETRON DISINTEGRATING 4 MG TAB PO PRN (17:23)
[2016-09-01] MEDS ORDERED: ONDANSETRON 4 MG/2 ML VIAL IVP PRN (17:23)
--- NOTE | 2016-09-01 17:31 | PDGENHP ---
History and Physical - Chief Complaint Acute encephalopathy - History of Present Illness primary care provider: Dr. Olivera HPI: 85-year-old male presenting with acute encephalopathy characterized as confusion, disorientation, somnolence with associated myoclonic jerking in his bilateral feet as well as dyskinetic motions his mouth. Onset of symptoms on the morning of presentation when the patient's noted she was unable to arouse him from bed. Duration has been persistent thereafter. The myoclonic movements and dyskinetic motions seemed been somewhat alleviated by raising the patient but his somnolence is quite dense and returns immediately and these movements resume. The patient's reports that prior to onset of symptoms, the patient's mental status had been a good, she reports he is fully oriented and able to engage in conversation about world events. To her knowledge, he was completely asymptomatic on the day prior to this presentation. To her knowledge, he has been taking his oxycodone immediate release once daily, OxyContin twice daily, Nucynta as scheduled. He has not had a bowel movement at least several days. On the morning of presentation, he did not take his morning pain meds. She does report that she was feeling somewhat ill from a likely viral infection several days ago. History Information - Allergies/Home Medication List Allergies/Adverse Reactions: No Known Allergies Allergy (Verified 09/01/16 15:34) Home Medications: Multivitamins [Multivitamin (*)] 1 each PO DAILY 07/23/15 [Last Taken 07/22/15] Tamsulosin HCl [Flomax 0.4 MG (*)] 0.4 mg PO DAILY20 07/23/15 [Last Taken ] oxyCODONE IR [Oxycodone Ir (*)] 15 mg PO BID PRN 07/23/15 [Last Taken 07/06/16] Ferrous Sulfate [Ferrous Sulf 325 MG (*)] 325 mg PO DAILY 07/06/16 [Last Taken Unknown] Hydrochlorothiazide [HCTZ (*)] 25 mg PO DAILY 07/06/16 [Last Taken Unknown] Pregabalin [Lyrica] 150 mg PO BID 07/06/16 [Last Taken 07/06/16] Sennosides/Docusate Sodium [Senna-S Tablet] 1 each PO DAILY 07/06/16 [Last Taken Unknown] Tapentadol HCl [Nucynta ER] 250 mg PO Q12 07/06/16 [Last Taken 07/06/16] Vitamin B Complex [Super B-50 Complex] 1 each PO DAILY 07/06/16 [Last Taken Unknown] I have personally reviewed and updated: family history, medical history, social history, surgical history - Past Medical History Additional medical history: 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 Chronic urinary retention. Chronic hypoxic respiratory failure on supplemental oxygen at all times. Chronic diastolic congestive heart failure. Hypertension. Anemia of chronic inflammatory disease with an iron deficient component. Chronic constipation. Chronic malnutrition. Spinal stenosis. C difficile colitis in 2010 - Surgical History Additional surgical history: Neck surgery. Back surgery. Whipple surgery in 2010. Appendectomy. Uvuloplasty. Unclear date of last colonoscopy - Family History Additional family history: patient's was recently ill with a viral infection, his father had colon cancer - Social History Smoking Status: Former smoker Alcohol Use: Sober Drug Use: None Additional social history: utilizes a walker at baseline, his lives in [place] Review of Systems ROS: 10pt was reviewed & negative except for what was stated in HPI & below Constitutional: Reports: weakness Neurological: Reports: other ( somnolence, myoclonic movements of feet, discontinuing movements of mouth) Physical Exam Temp Pulse Resp BP Pulse Ox 36.9 C 96 16 148/86 H 98 09/01/16 16:00 09/01/16 17:22 09/01/16 17:22 09/01/16 17:22 09/01/16 17:22 O2 (L/minute) 2.5 Constitutional: no apparent distress, appears nourished, not in pain, chronically ill appearing Eyes: anicteric sclera, other ( constricted pupils, equal bilaterally) Ears, Nose, Mouth, Throat: moist mucous membranes, hearing normal, ears appear normal, no oral mucosal ulcers, other ( tonsillar exudate) Cardiovascular: regular rate and rhythym, no murmur, rub, or gallop, No edema Respiratory: reduced air movement ( bilateral bases), No expiratory wheeze, No inspiratory crackles, No bronchial breath sounds Gastrointestinal: soft, non-tender abdomen, no palpable masses, other ( hyperactive bowel sounds), No guarding, No distension Genitourinary: no bladder fullness, no bladder tenderness, montero in urethra Neurologic: other ( alert awake oriented x1 only, intermittent mild myoclonus bilateral feet, lip-smacking, motor strength 5/5 bilateral upper and lower extremities, able to follow some 1 step commands) Psychiatric: not anxious, encephalopathic, poor insight, poor judgement, poor memory, No agitated Lab Data & Imaging Review 09/01/16 14:00 09/01/16 14:00 WBC 7.22 10^3/uL (3.80-9.50) 09/01/16 14:00 RBC 5.13 10^6/uL (4.40-6.38) 09/01/16 14:00 Hgb 14.9 g/dL (13.7-17.5) 09/01/16 14:00 Hct 44.9 % (40.0-51.0) 09/01/16 14:00 MCV 87.5 fL (81.5-99.8) 09/01/16 14:00 MCH 29.0 pg (27.9-34.1) 09/01/16 14:00 MCHC 33.2 g/dL (32.4-36.7) 09/01/16 14:00 RDW 14.0 % (11.5-15.2) 09/01/16 14:00 Plt Count 243 10^3/uL (150-400) 09/01/16 14:00 MPV 10.7 fL (8.7-11.7) 09/01/16 14:00 Neut % (Auto) 84.8 % (39.3-74.2) H 09/01/16 14:00 Lymph % (Auto) 9.0 % (15.0-45.0) L 09/01/16 14:00 [place] % (Auto) 5.7 % (4.5-13.0) 09/01/16 14:00 Eos % (Auto) 0.1 % (0.6-7.6) L 09/01/16 14:00 Baso % (Auto) 0.1 % (0.3-1.7) L 09/01/16 14:00 Nucleat RBC Rel Count 0.0 % (0.0-0.2) 09/01/16 14:00 Absolute Neuts (auto) 6.12 10^3/uL (1.70-6.50) 09/01/16 14:00 Absolute Lymphs (auto) 0.65 10^3/uL (1.00-3.00) L 09/01/16 14:00 Absolute Monos (auto) 0.41 10^3/uL (0.30-0.80) 09/01/16 14:00 Absolute Eos (auto) 0.01 10^3/uL (0.03-0.40) L 09/01/16 14:00 Absolute Basos (auto) 0.01 10^3/uL (0.02-0.10) L 09/01/16 14:00 Absolute Nucleated RBC 0.00 10^3/uL (0-0.01) 09/01/16 14:00 Immature Gran % 0.3 % (0.0-1.1) 09/01/16 14:00 Immature Gran # 0.02 10^3/uL (0.00-0.10) 09/01/16 14:00 PT 13.3 SEC (12.0-15.0) 09/01/16 14:00 INR 1.02 (0.83-1.16) 09/01/16 14:00 APTT 32.0 SEC (23.0-38.0) 09/01/16 14:00 VBG Lactic Acid 0.9 mmol/L (0.7-2.1) 09/01/16 15:05 Sodium 137 mEq/L (134-144) 09/01/16 14:00 Potassium 3.2 mEq/L (3.5-5.2) L 09/01/16 14:00 Chloride 95 mEq/L (97-110) L 09/01/16 14:00 Carbon Dioxide 31 mEq/l (22-31) 09/01/16 14:00 Anion Gap 11 mEq/L (8-16) 09/01/16 14:00 BUN 12 mg/dL (7-23) 09/01/16 14:00 Creatinine 0.7 mg/dL (0.7-1.3) 09/01/16 14:00 Estimated GFR > 60 09/01/16 14:00 Glucose 135 mg/dL (70-100) H 09/01/16 14:00 Calcium 9.3 mg/dL (8.5-10.4) 09/01/16 14:00 Total Bilirubin 1.2 mg/dL (0.1-1.4) 09/01/16 14:00 Conjugated Bilirubin 0.5 mg/dL (0.0-0.5) 09/01/16 14:00 Unconjugated Bilirubin 0.7 mg/dL (0.0-1.1) 09/01/16 14:00 AST 19 IU/L (17-59) 09/01/16 14:00 ALT 30 IU/L (21-72) 09/01/16 14:00 Alkaline Phosphatase 97 IU/L (38-126) 09/01/16 14:00 Troponin I < 0.012 ng/mL (0-0.034) 09/01/16 14:00 Total Protein 7.2 g/dL (6.3-8.2) 09/01/16 14:00 Albumin 3.7 g/dL (3.5-5.0) 09/01/16 14:00 Lipase 23.0 IU/L (23-300) 09/01/16 14:00 Urine Color YELLOW 09/01/16 15:15 Urine Appearance CLEAR 09/01/16 15:15 Urine pH 8.0 (5.0-7.5) H 09/01/16 15:15 Ur Specific [place] 1.008 (1.002-1.030) 09/01/16 15:15 Urine Protein NEGATIVE (NEGATIVE) 09/01/16 15:15 Urine Ketones 1+ (NEGATIVE) H 09/01/16 15:15 Urine Blood NEGATIVE (NEGATIVE) 09/01/16 15:15 Urine Nitrate NEGATIVE (NEGATIVE) 09/01/16 15:15 Urine Bilirubin NEGATIVE (NEGATIVE) 09/01/16 15:15 Urine Urobilinogen 2.0 EU (0.2-1.0) H 09/01/16 15:15 Ur Leukocyte Esterase NEGATIVE (NEGATIVE) 09/01/16 15:15 Urine Glucose NEGATIVE (NEGATIVE) 09/01/16 15:15 Visualized and Interpreted Chest x-ray results: Yes Chest X-Ray results: other ( bibasilar effusions versus opacities) Visualized and Interpreted EKG results: Yes EKG Interpretation: Positive for: other ( sinus mechanism, intraventricular conduction delay) Assessment & Plan Assessment: 85-year-old male presents with acute encephalopathy in the setting of chronic pain with continuous opiate dependency Plan: 1. Encephalopathy. Acute, new problem this provider, further workup indicated. Evidenced by global brain dysfunction characterized as somnolence, disorientation, confusion, difficulty to arouse with abrupt onset an acute change on the morning of this presentation. -etiology is currently unclear, warrants further workup, possibilities do include CVA versus viral infection versus metastatic disease to brain versus hypercapnia -send ABG, send TSH, send CEA given his father's history of colon cancer and his chronic constipation, send respiratory viral panel, send urine tox screen to rule out benzodiazepines and ethanol -get brain MRI with and without contrast to rule out CVA as well as brain metastases -consider chest CT imaging if above negative to workup for possible primary malignancy -minimize opiate use, monitor for signs of opiate withdrawal -get PT, OT, [employer] therapy 2. Chronic pain with continuous opiate dependency. Secondary to spinal stenosis as well as cervical neck issues, hold opiates and only dose once as needed low-dose if requires pain control overnight 3. Constipation. Hyperactive bowel sounds, continue use stool softeners, monitor for bowel movement -reviewed outside records including discharge summary by Dr. Desmond deras from 12/2016 reporting the patient presented with abdominal pain secondary to constipation, was believed that it was secondary to his opiate pain medications and it was rapidly alleviated 4. hypokalemia. Most likely secondary to poor oral intake, replete with normal saline 5. Chronic diastolic congestive heart failure. No evidence of exacerbation, effusion stable on chest x-ray 6. Chronic hypoxic respiratory failure. Continue on supplemental oxygen 7. Chronic hypertension. Continue home antihypertensives once reconciled Diet. Regular if tolerates, normal saline with supplemental potassium Prophylaxis. High risk patient, Lovenox 40 Code. Do not resuscitate, and son are joint [facility] Disposition. Anticipated discharge uncertain this time, anticipated length stay is greater than 48 hours warranting inpatient admission status for acute encephalopathy requiring further workup as outlined above with numerous high risk comorbid conditions placing patient in a highly compromised state. I discussed patient's presentation with Dr. Geraldo Brar in the emergency department, we both agree the patient is high risk, high complexity medical patient warrants inpatient admission at this time.
[2016-09-01 17:59] LABS: BASE EXCESS 7.1 mEq/L (-2.5-2.5); BICARBONATE 32 mEq/L (22-26); MEASURED OXYGEN SATURATION 96 % (92-95); PCO2 46 mmHg (34-38); PO2 86 mmHg (65-75); TCO2 33 mEq/L (23-27)
[2016-09-01] MEDS: POTASSIUM Cl (KCl) 40 MEQ in NS 1,000 ML IV SCH (19:39)
[2016-09-01 20:23] LABS: PHENCYCLIDINE URINE BCH < 6 ng/ml (NEGATIVE); PHENCYCLIDINE URINE BCH NEGATIVE (NEGATIVE); TETRAHYDROCANNABINOL URINE < 5 ng/mL (NEGATIVE); TETRAHYDROCANNABINOL URINE NEGATIVE (NEGATIVE)
[2016-09-01 20:47] LABS: ETHANOL URINE < 10 (NEGATIVE); ETHANOL URINE NEGATIVE (NEGATIVE)
[2016-09-01] MEDS: PREGABALIN 150 MG CAP PO SCH (23:19)
[2016-09-01] MEDS: SENNOSIDES/DOCUSATE SODIUM TAB PO SCH (23:32)
[2016-09-02 05:06] LABS: % IMMATURE GRANULYOCYTES 0.4 % (0.0-1.1); ABSOLUTE IMMATURE GRANULOCYTES 0.04 10^3/uL (0.00-0.10); ADD DIFF? NO; ADD MORPH? NO; ADD SCAN? NO; ATYPICAL LYMPHOCYTE FLAG 10 (0-99); FRAGMENT RBC FLAG 0 (0-99); HEMATOCRIT 40.9 % (40.0-51.0); HEMOGLOBIN 13.6 g/dL (13.7-17.5); LEFT SHIFT FLG 0 (0-99); LIPEMIA HEMOLYSIS FLAG 80 (0-99); MEAN CELL HEMOGLOBIN 29.1 pg (27.9-34.1); MEAN CELL HEMOGLOBIN CONCENTR. 33.3 g/dL (32.4-36.7); MEAN CELL VOLUME 87.6 fL (81.5-99.8); MEAN PLATELET VOLUME 10.1 fL (8.7-11.7); PLATELET CLUMPS FLAG 10 (0-99); PLATELET COUNT 221 10^3/uL (150-400); RED BLOOD CELL COUNT 4.67 10^6/uL (4.40-6.38); RED CELL DISTRIBUTION WIDTH 14.2 % (11.5-15.2)
[2016-09-02 05:32] LABS: ALANINE AMINOTRANSFERASE 28 IU/L (21-72); ALBUMIN 2.9 g/dL (3.5-5.0); ALKALINE PHOSPHATASE 81 IU/L (38-126); ANION GAP 7 mEq/L (8-16); ASPARTATE AMINOTRANSFERASE 23 IU/L (17-59); BILIRUBIN,TOTAL 1.2 mg/dL (0.1-1.4); CALCIUM 8.7 mg/dL (8.5-10.4); CARBON DIOXIDE 32 mEq/l (22-31); CHLORIDE 100 mEq/L (97-110); CREATININE 0.7 mg/dL (0.7-1.3); GLOMERULAR FILTRATION RATE > 60; GLUCOSE 110 mg/dL (70-100); MAGNESIUM 1.4 mg/dL (1.6-2.3); POTASSIUM 3.2 mEq/L (3.5-5.2); SODIUM 139 mEq/L (134-144); TOTAL PROTEIN 5.9 g/dL (6.3-8.2)
[2016-09-02] MEDS: POTASSIUM Cl (KCl) 40 MEQ in NS 1,000 ML IV SCH (06:06)
[2016-09-02] MEDS: FERROUS SULFATE 325 MG TAB PO SCH ×2 (09:59→15:58)
[2016-09-02] MEDS: VITAMIN B COMPLEX 1 EA CAP/TAB PO SCH ×2 (09:59→15:59)
[2016-09-02] MEDS: MULTIVITAMINS 1 EACH TAB PO SCH ×2 (09:59→15:58)
[2016-09-02] MEDS: ENOXAPARIN 40 MG/0.4 ML SYR SC SCH (09:59)
[2016-09-02] MEDS: PREGABALIN 150 MG CAP PO SCH ×2 (09:59→15:58)
[2016-09-02] MEDS: SENNOSIDES/DOCUSATE SODIUM TAB PO SCH ×3 (09:59→22:04)
[2016-09-02] MEDS: TAMSULOSIN HCL 0.4 MG CAP PO SCH ×2 (09:59→15:59)
--- NOTE | 2016-09-02 12:12 | HOSPPROG ---
Hospitalist Progress Note Assessment/Plan: 1. Encephalopathy * most likely due to opiates * MRI pending 2. Chronic pain with continuous opiate dependency. Secondary to spinal stenosis as well as cervical neck issues * holding opiates 3. Constipation. * continue bowel protocol 4. hypokalemia. Most likely secondary to poor oral intake, replete with normal saline 5. Chronic diastolic congestive heart failure. No evidence of exacerbation, effusion stable on chest x-ray 6. Chronic hypoxic respiratory failure. Continue on supplemental oxygen 7. Chronic hypertension. Continue home antihypertensives once reconciled Subjective: fairly somnolent Objective: Vital Signs Temp Pulse Resp BP Pulse Ox 36.7 C 87 18 145/69 H 85 L 09/02/16 08:00 09/02/16 08:00 09/02/16 08:00 09/02/16 08:00 09/02/16 08:00 Microbiology 09/01/16 19:45 Respiratory Panel (PCR) - Final Nasal, Sinus - [place] Viral Transport No Organism Detected Laboratory Results 09/02/16 04:59 09/02/16 04:59 09/01/16 09/02/16 09/03/16 05:59 05:59 05:59 Intake Total 1900 Output Total 1600 1000 Balance 300 -1000 PT 13.3 SEC (12.0-15.0) 09/01/16 14:00 INR 1.02 (0.83-1.16) 09/01/16 14:00 - Physical Exam Constitutional: no apparent distress, appears nourished, not in pain Eyes: anicteric sclera, EOMI Ears, Nose, Mouth, Throat: moist mucous membranes Cardiovascular: regular rate and rhythym, no murmur, rub, or gallop Respiratory: no respiratory distress, no rales or rhonchi, clear to auscultation Gastrointestinal: normoactive bowel sounds, soft, non-tender abdomen, no palpable masses Skin: warm Neurologic: other ( sitting in chair. Somnolent but arousable. Answers some questions with eyes closed) Psychiatric: encephalopathic ICD10 Worksheet Patient Problems: Problems Problem Status Onset Altered mental status Acute Abdominal pain Acute Hypercalcemia Acute Hypokalemia Acute Lung mass Acute Weakness Acute
[2016-09-02] MEDS ORDERED: POLYETHYLENE GLYCOL 3350 17 GM PKT PO PRN (12:13)
[2016-09-02] MEDS ORDERED: MAGNESIUM HYDROXIDE 30 ML UDCUP PO PRN (12:13)
[2016-09-02] MEDS ORDERED: BISACODYL 10 MG SUPP PR PRN (12:13)
[2016-09-02] MEDS ORDERED: LACTULOSE 20 GM/30 ML UDCUP PO PRN (12:13)
[2016-09-02] MEDS ORDERED: VANCOMYCIN 1.5 GM in D5W 250 ML IV SCH (13:00)
[2016-09-03] MEDS: POTASSIUM Cl (KCl) 40 MEQ in NS 1,000 ML IV SCH ×2 (04:39→15:48)
[2016-09-03 05:43] LABS: % IMMATURE GRANULYOCYTES 0.5 % (0.0-1.1); ABSOLUTE IMMATURE GRANULOCYTES 0.06 10^3/uL (0.00-0.10); ADD DIFF? NO; ADD MORPH? NO; ADD SCAN? NO; ATYPICAL LYMPHOCYTE FLAG 0 (0-99); FRAGMENT RBC FLAG 0 (0-99); HEMATOCRIT 40.1 % (40.0-51.0); LEFT SHIFT FLG 0 (0-99); LIPEMIA HEMOLYSIS FLAG 80 (0-99); MEAN CELL HEMOGLOBIN CONCENTR. 32.4 g/dL (32.4-36.7); MEAN CELL VOLUME 89.3 fL (81.5-99.8); MEAN PLATELET VOLUME 10.5 fL (8.7-11.7); PLATELET CLUMPS FLAG 0 (0-99); PLATELET COUNT 225 10^3/uL (150-400); RED BLOOD CELL COUNT 4.49 10^6/uL (4.40-6.38); RED CELL DISTRIBUTION WIDTH 14.4 % (11.5-15.2)
[2016-09-03 05:58] LABS: ANION GAP 6 mEq/L (8-16); CALCIUM 7.9 mg/dL (8.5-10.4); CARBON DIOXIDE 27 mEq/l (22-31); CHLORIDE 106 mEq/L (97-110); CREATININE 0.7 mg/dL (0.7-1.3); GLOMERULAR FILTRATION RATE > 60; GLUCOSE 96 mg/dL (70-100); POTASSIUM 3.7 mEq/L (3.5-5.2); SODIUM 139 mEq/L (134-144)
[2016-09-03] MEDS: SENNOSIDES/DOCUSATE SODIUM TAB PO SCH ×2 (08:24→21:25)
[2016-09-03] MEDS: ENOXAPARIN 40 MG/0.4 ML SYR SC SCH (10:06)
[2016-09-03] MEDS: VITAMIN B COMPLEX 1 EA CAP/TAB PO SCH (10:11)
[2016-09-03] MEDS: TAMSULOSIN HCL 0.4 MG CAP PO SCH (10:11)
[2016-09-03] MEDS: FERROUS SULFATE 325 MG TAB PO SCH (10:11)
[2016-09-03] MEDS: MULTIVITAMINS 1 EACH TAB PO SCH (10:11)
[2016-09-03] MEDS ORDERED: BISACODYL 10 MG SUPP PR ONE (11:10)
[2016-09-03] MEDS ORDERED: MAGNESIUM HYDROXIDE 30 ML UDCUP PO ONE (11:10)
[2016-09-03] MEDS ORDERED: MAGNESIUM SULF 2 GM/WATER 50 ML IV ONE (11:12)
--- NOTE | 2016-09-03 11:15 | HOSPPROG ---
Hospitalist Progress Note Assessment/Plan: * Encephalopathy * ? due to bacteremia + opiates * see if improves with abx * better but not at baseline * coag neg staph bacteremia * 3rd bottle became positive today * start vanco * ID consult in am * check echo - does have faint murmur * repeat cultures * abnormal chest x-ray * minimal oxygen requirement nota * really coughing * but because of continued encephalopathy will get CT scan * Chronic pain with continuous opiate dependency. Secondary to spinal stenosis as well as cervical neck issues * holding opiates * Constipation. * More aggressive bowel regimen today * hypokalemia. Most likely secondary to poor oral intake, replete with normal saline * Chronic diastolic congestive heart failure. No evidence of exacerbation, effusion stable on chest x-ray * Chronic hypoxic respiratory failure. Continue on supplemental oxygen * Chronic hypertension. Continue home antihypertensives Subjective: More awake but does not appear to be at baseline Objective: Vital Signs Temp Pulse Resp BP Pulse Ox 36.9 C 83 20 155/94 H 97 09/03/16 08:00 09/03/16 08:00 09/03/16 08:00 09/03/16 08:00 09/03/16 08:00 Microbiology 09/01/16 19:45 Respiratory Panel (PCR) - Final Nasal, Sinus - [place] Viral Transport No Organism Detected Laboratory Results 09/03/16 05:20 09/03/16 05:20 09/02/16 09/03/16 09/04/16 05:59 05:59 05:59 Intake Total 1900 2960 Output Total 1600 1700 Balance 300 1260 PT 13.3 SEC (12.0-15.0) 09/01/16 14:00 INR 1.02 (0.83-1.16) 09/01/16 14:00 Discussed with Infectious Disease - Physical Exam Constitutional: no apparent distress, appears nourished, not in pain Eyes: anicteric sclera, EOMI Ears, Nose, Mouth, Throat: moist mucous membranes, hearing normal Cardiovascular: regular rate and rhythym, systolic murmur (Soft at apex) Respiratory: no respiratory distress, no rales or rhonchi, clear to auscultation Gastrointestinal: normoactive bowel sounds, tenderness (Mild diffuse tenderness) , distension Skin: warm Neurologic: No AAOx3 Psychiatric: encephalopathic ICD10 Worksheet Patient Problems: Problems Problem Status Onset Altered mental status Acute Abdominal pain Acute Hypercalcemia Acute Hypokalemia Acute Lung mass Acute Weakness Acute
[2016-09-03] MEDS: VANCOMYCIN 1.25 GM in D5W 250 ML IV SCH (18:42)
[2016-09-04] MEDS: POTASSIUM Cl (KCl) 40 MEQ in NS 1,000 ML IV SCH ×2 (04:11→16:56)
[2016-09-04] MEDS: oxyCODONE IR 5 MG TAB PO PRN (04:46)
[2016-09-04 08:00] LABS: % IMMATURE GRANULYOCYTES 0.4 % (0.0-1.1); ABSOLUTE IMMATURE GRANULOCYTES 0.04 10^3/uL (0.00-0.10); ADD DIFF? NO; ADD MORPH? NO; ADD SCAN? NO; ATYPICAL LYMPHOCYTE FLAG 10 (0-99); FRAGMENT RBC FLAG 0 (0-99); HEMATOCRIT 38.1 % (40.0-51.0); HEMOGLOBIN 12.7 g/dL (13.7-17.5); LEFT SHIFT FLG 0 (0-99); LIPEMIA HEMOLYSIS FLAG 80 (0-99); MEAN CELL HEMOGLOBIN 29.4 pg (27.9-34.1); MEAN CELL HEMOGLOBIN CONCENTR. 33.3 g/dL (32.4-36.7); MEAN CELL VOLUME 88.2 fL (81.5-99.8); MEAN PLATELET VOLUME 10.3 fL (8.7-11.7); PLATELET CLUMPS FLAG 0 (0-99); PLATELET COUNT 193 10^3/uL (150-400); RED BLOOD CELL COUNT 4.32 10^6/uL (4.40-6.38); RED CELL DISTRIBUTION WIDTH 14.4 % (11.5-15.2)
[2016-09-04 08:23] LABS: ANION GAP 7 mEq/L (8-16); CALCIUM 7.4 mg/dL (8.5-10.4); CARBON DIOXIDE 24 mEq/l (22-31); CHLORIDE 106 mEq/L (97-110); CREATININE 0.6 mg/dL (0.7-1.3); GLOMERULAR FILTRATION RATE > 60; GLUCOSE 97 mg/dL (70-100); MAGNESIUM 1.6 mg/dL (1.6-2.3); POTASSIUM 3.8 mEq/L (3.5-5.2); SODIUM 137 mEq/L (134-144)
[2016-09-04] MEDS: VITAMIN B COMPLEX 1 EA CAP/TAB PO SCH (09:35)
[2016-09-04] MEDS: SENNOSIDES/DOCUSATE SODIUM TAB PO SCH ×2 (09:35→20:23)
[2016-09-04] MEDS: TAMSULOSIN HCL 0.4 MG CAP PO SCH (09:35)
[2016-09-04] MEDS: ENOXAPARIN 40 MG/0.4 ML SYR SC SCH (09:35)
[2016-09-04] MEDS: MULTIVITAMINS 1 EACH TAB PO SCH (09:44)
--- NOTE | 2016-09-04 09:52 | HOSPPROG ---
Hospitalist Progress Note Assessment/Plan: #Acute metabolic encephalopathy: not improving on IV abx so more etiology less likely infection. Na, glucose NL. Low TSH, check T3/T4. Check MRI today for CVA vs. mass vs. metastatic disease from pleural thickening seen on CT. Myoclonic jerk right leg, query seizure. Discuss case with Dr. Dunn who agrees with MRI brain. No treatment for myoclonus unless sustained episode and seizure-like #Staph capitis bacteremia: unclear if true infection since afebrile, no leukocytosis. IV vanc, TTE with no vegetation. Appreciate ID consult #Pleural mass-like lingula thickening: possible asbestos? 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 No acute PNA. Seen on prior CT in 2015. Had fluid studies in 2010 negative for cancer #Hypokalemia: repleted #Spinal stenosis: holding opioids with AMS. 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 Subjective: no improvement in mental status per family Objective: Vital Signs Temp Pulse Resp BP Pulse Ox 37.0 C 76 18 139/86 H 97 09/04/16 07:20 09/04/16 07:20 09/04/16 07:20 09/04/16 07:20 09/04/16 07:20 Laboratory Results 09/04/16 07:48 09/04/16 07:48 09/03/16 09/04/16 09/05/16 05:59 05:59 05:59 Intake Total 2960 1427 Output Total 1701 800 Balance 1259 627 PT 13.3 SEC (12.0-15.0) 09/01/16 14:00 INR 1.02 (0.83-1.16) 09/01/16 14:00 - Physical Exam Constitutional: no apparent distress Eyes: PERRL Ears, Nose, Mouth, Throat: moist mucous membranes Cardiovascular: regular rate and rhythym, no murmur, rub, or gallop Respiratory: no respiratory distress Gastrointestinal: normoactive bowel sounds, soft, non-tender abdomen Genitourinary: no bladder fullness Skin: warm Musculoskeletal: full muscle strength Neurologic: CN II-XII Intact, other (right leg myoclonic jerk. Following simple commands. Does not recognize son or . Repeating words when asked question) Psychiatric: encephalopathic ICD10 Worksheet Patient Problems: Problems Problem Status Onset Altered mental status Acute Abdominal pain Acute Hypercalcemia Acute Hypokalemia Acute Lung mass Acute Weakness Acute
[2016-09-04 10:42] LABS: ALBUMIN 2.4 g/dL (3.5-5.0); BILIRUBIN,TOTAL 1.2 mg/dL (0.1-1.4); BILIRUBIN-CONJUGATED 0.4 mg/dL (0.0-0.5); BILIRUBIN-UNCONJUGATED 0.8 mg/dL (0.0-1.1)
--- NOTE | 2016-09-04 12:12 | ECHO ---
[id number] + + [id number] : : [place] [address] : : [phone] + + Adult Echocardiographic Report + --+ :Name: BLANCA FONSECA BStudy Date: 09/04/2016 07:44 AM : : Hospital Admission Number: [id number] Location: 3 96: :: 1930 Gender: Male Height: 72 in : :Age: 85 yrs Race: WH Weight: 180 lb : :Reason For Study: Bacteremia : : BSA: 2.0 meters2 : + --+ MMode/2D Measurements \T\ Calculations LVIDd: 5.4 cm EDV(Teich): 143.2 ml Ao root diam: 3.7 cm LA dimension: 4.6 cm Normal Measurement Values: + + :LVIDd (3.5-5.7cm) IVSd (0.6-1.1cm) LVPWd (0.6-1.1cm) Aortic Root (2.0-3.7cm)Left Atrium (1.5-4.0cm): :LV Vol(d) (76-115ml) LV Vol(s) (29-48ml) Ejec Fraction (50-65%)PV Morgan (0.6- 1.2m/s) TV Morgan (0.4-1.0m/s) : :MV E Morgan (0.8-1.0m/s)MV A Morgan (0.3-1.0m/s)LVOT Morgan (0.7-1.2m/s) Asc Ao Morgan ( 0.9-1.8m/s) : + + Doppler Measurements \T\ Calculations MV E max morgan: 72.6 cm/sec Ao mean P.2 mmHg TR max morgan: 270.1 cm/sec MV A max morgan: 110.6 cm/sec Ao V2 mean: 84.5 cm/sec TR max P.2 mmHg MV E/A: 0.66 Ao V2 VTI: 25.6 cm RAP systole: 5.0 mmHg RVSP(TR): 34.2 mmHg Left Ventricle The left ventricle is normal in size. There is mild concentric left ventricular hypertrophy. Left ventricular systolic function is normal. Ejection Fraction = 60-65%. No regional wall motion abnormalities noted. Right Ventricle The right ventricle is normal in size and function. Atria The left atrial size is normal. Right atrial size is normal. Mitral Valve There is moderate mitral annular calcification. There is no evidence of mitral valve prolapse. There is no mitral valve stenosis. There is mild mitral regurgitation. Tricuspid Valve Normal tricuspid valve. There is mild tricuspid regurgitation. Right ventricular systolic pressure is 34mmHg. Aortic Valve The aortic valve is trileaflet. The aortic valve opens well. Mild AO annular calcification. There is no aortic stenosis. There is no aortic insufficiency. Pulmonic Valve The pulmonic valve is normal in structure and function. There is no pulmonic valvular regurgitation. Great Vessels The aortic root is normal size. Pericardium/Pleural There is no pericardial effusion. Conclusion A complete two-dimensional transthoracic echocardiogram was performed (2D, M-mode, Doppler and color flow Doppler). The study was technically limited. Left ventricular systolic function is normal. There is mild concentric left ventricular hypertrophy. Ejection Fraction = 60-65%. There is moderate mitral annular calcification. There is mild mitral regurgitation. There is mild tricuspid regurgitation. Right ventricular systolic pressure is 34mmHg. Mild AO annular calcification. No obvious valvular vegetation, although the aortic valve is sclerotic and a small vegetation could be hidden. If clinically indicated, consider NIECY Final Reading Physician: Dr Anika Rodriguez electronically signed on 09/04/2016 12:11 PM Ordering Physician: Akilah Arias Performed By: Elizabeth Golden RDCS
[2016-09-04] MEDS ORDERED: MIDAZOLAM 2 MG/2 ML VIAL IVP ONE (14:53)
[2016-09-04] MEDS ORDERED: LORazepam 2 MG/ML INJ IVP PRN (15:57)
[2016-09-04] MEDS: LORazepam 2 MG/ML INJ IVP PRN (16:56)
[2016-09-04] MEDS: VANCOMYCIN 1.25 GM in D5W 250 ML IV SCH (17:56)
--- NOTE | 2016-09-04 18:07 | GCON ---
[f rep st] CONSULTATION INFECTIOUS DISEASES CONSULTATION DATE OF CONSULTATION: 09/04/2016 REFERRING PHYSICIAN: Akilah Arias MD REASON FOR CONSULTATION: Positive blood cultures for coagulase-negative staph and encephalopathy. HISTORY OF PRESENT ILLNESS: An 85-year-old male who presents to the emergency room on September 01 with acute onset of encephalopathy. Patient was in his usual state of health on Monday evening and woke up morning confused. Patient was brought to the emergency room for further evaluation and has undergone CT of the head and chest, and blood cultures were drawn. As expected , labs were also collected which showed a mild leukocytosis. His confusion is minimally improved since admission, and patient does follow commands but has no purposeful speech. Both the patient's and son were present, were interviewed, and deny any specific events leading up to this confusion. They also deny that he had no new complaints leading up to this and has chronic back pain and abdominal pain. He is on chronic opiates but no recent change. He has had a small amount of weight loss of approximately 4-5 pounds on review of past hospitalizations. They report that initially when he was brought into the emergency room that he had a chewing motion that now seems to be resolved. They denied any specific falls. He did have diarrhea 2-3 weeks ago, but that has now resolved. They deny that he was complaining of any pulmonary symptoms. Further, no sick contacts, no rashes, no recent international travel. Both he and his live in an assisted living. He is typically able to complete his ADLs easily, and they eat in a common area. 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 Data that has been uncovered during his hospitalization includes a head CT without discernible etiology and a chest CT with a left nodular focal parenchymal pleural-based mass that is slightly increased from prior CT scan and pleural thickening bilaterally. In addition, the patient had 2 sets of blood cultures from admission that grew coagulase-negative staph identified as Staphylococcus capitis. PAST MEDICAL AND SURGICAL HISTORY: 1. Biliary adenoma, status post Whipple in 2010, course complicated by C difficile. 2. Chronic neck and back pain with continuous opiate dependency and multiple back surgeries. Last back surgery was over 10 years ago. Last neck surgery was about 8 years ago. 3. Chronic urinary retention. 4. Chronic hypoxic respiratory failure, on supplemental oxygen. 5. Diastolic heart failure. 6. Hypertension. 7. Anemia of chronic disease. 8. Chronic constipation. 9. Spinal stenosis. 10. Appendectomy. 11. Uvuloplasty. FAMILY HISTORY: Father had colon cancer. SOCIAL HISTORY: Former tobacco. No alcohol currently, remote history. Utilizes a walker at baseline. They live in [place]. They have a dog. He has been 57 years. 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 No recent international travel. ALLERGIES: NKDA. MEDICATIONS: Tylenol, Dulcolax, Lovenox, iron, Ativan, multivitamin, Zofran, oxycodone, Lyrica 150 twice daily, Flomax, vancomycin 1.25 g IV q.24. Patient received first dose 09/02 at 1400 and has been on since. PHYSICAL EXAM: VITAL SIGNS: Blood pressure 164/88, heart rate 73, respiratory rate 16, saturation 93% on room air, temperature 36.7. He has been afebrile throughout his hospital course. GENERAL: This is an elderly male sitting in bed. He is following commands, but making a constant humming noise. HEENT: Conjunctivae were mildly injected. Oropharynx: Relatively dry mucous membranes. He smells ketotic. No obvious dental caries. NECK: Somewhat limited range of motion. Suspect chronic nature due to multiple neck surgeries and back surgeries. CARDIOVASCULAR: Regular rate. No murmurs. CHEST: Clear to auscultation bilaterally. ABDOMEN: Slightly distended, soft, nontender. Bowel sounds were present. EXTREMITIES: No clubbing, cyanosis, or edema. NEUROLOGICAL: The patient was moving all 4 extremities equally and on command, and his cranial nerves seemed intact, but patient would repeat words. He did answer some possible simple questions, stating that his head hurt, but other areas did not hurt, but he does not recognize his son or . LABORATORY: White count on admission 7.2, today 7.8. Creatinine 0.8. AST 22, ALT 25, alk phos 69. CEA was slightly elevated. Urine culture was negative. Respiratory viral panel PCR was negative. Blood cultures from the 8th are pending. 09/01/16 blood cultures show 2 sets of coagulase-negative staph. CT scan as per HPI. ASSESSMENT AND PLAN: This is an 85-year-old male who presents to the emergency room with encephalopathy of unclear etiology, although doubt this is related to coagulase-negative staph bacteremia. Patient has no clear reason to have coagulase-negative Staph bacteremia as he has no hardware in place, lines in place, or recent procedures. RECOMMENDATIONS: 1. Agree with primary team plan for MRI and neurology consult. 2. We will await results of MRI, but likely can withdraw vancomycin after specific etiology is determined. 3. Nodular lesion in the left lung could be chronic infection such as Nocardia which could present with brain findings, i.e., brain abscess or could consider malignancy. We will await MRI findings and then further pursue sampling modality for this abnormality. Thank you for this consultation. Time was 75 minutes with greater than 50% time spent on education and counseling of the family regarding differential diagnosis of encephalopathy including stroke and/or brain mass, and that bacteremia was likely a laboratory error and not the cause of his encephalopathy. We will continue to follow the patient and this maldonado family on a daily basis. /[id number]/MODL MTDD
[2016-09-05] MEDS: POTASSIUM Cl (KCl) 40 MEQ in NS 1,000 ML IV SCH ×2 (04:18→19:44)
--- NOTE | 2016-09-05 08:24 | HOSPPROG ---
Hospitalist Progress Note Assessment/Plan: #Acute metabolic encephalopathy: not improving today. Unable to obtain MRI due to cervical anatomy. Obtain CTH with IV, LP, eval for HSV/VZV/West Nile. Check syphilis. No electrolyte derangements. Low TSH with mildy decreased T3 would not likely cause these symptoms. I have spoke with son who is agreeable to plan. #Diarrhea: check C diff #Staph capitis bacteremia: unclear if true infection since afebrile, no leukocytosis. IV vanc, TTE with no vegetation. Appreciate ID consult #Pleural mass-like lingula thickening: possible asbestos? 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 No acute PNA. Seen on prior CT in 2015. Had fluid studies in 2010 negative for cancer #Hypokalemia: repleted #Spinal stenosis: holding opioids with AMS. 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 20 min bedside with pt, remaining time discussing case with imagining, ID and Neurology Subjective: could not obtain MRI yesterday Objective: Vital Signs Temp Pulse Resp BP Pulse Ox 36.4 C 80 16 168/76 H 94 09/05/16 04:00 09/05/16 04:00 09/05/16 04:00 09/05/16 04:00 09/05/16 04:00 Laboratory Results 09/04/16 07:48 09/04/16 07:48 09/04/16 09/05/16 09/06/16 05:59 05:59 05:59 Intake Total 1427 1170 Output Total 800 1700 Balance 627 -530 PT 13.3 SEC (12.0-15.0) 09/01/16 14:00 INR 1.02 (0.83-1.16) 09/01/16 14:00 - Physical Exam Constitutional: no apparent distress, other (will not participate in exam) Eyes: PERRL Ears, Nose, Mouth, Throat: dry mucous membranes Cardiovascular: regular rate and rhythym Respiratory: no respiratory distress, no rales or rhonchi Gastrointestinal: normoactive bowel sounds, soft, non-tender abdomen, other (no grimace ) Skin: warm, other (chronic dermatitis ankles, ) Musculoskeletal: other (will not participate in exam) Neurologic: other (says "no, no, no". Will squeeze hand and wiggle feet when asked", but minimal participation. Myoclonic jerks of legs) Psychiatric: encephalopathic ICD10 Worksheet Patient Problems: Problems Problem Status Onset Altered mental status Acute Abdominal pain Acute Hypercalcemia Acute Hypokalemia Acute Lung mass Acute Weakness Acute
[2016-09-05 08:46] LABS: ANION GAP 8 mEq/L (8-16); CALCIUM 7.5 mg/dL (8.5-10.4); CARBON DIOXIDE 19 mEq/l (22-31); CHLORIDE 107 mEq/L (97-110); CREATININE 0.5 mg/dL (0.7-1.3); GLOMERULAR FILTRATION RATE > 60; GLUCOSE 78 mg/dL (70-100); POTASSIUM 3.9 mEq/L (3.5-5.2); SODIUM 134 mEq/L (134-144)
[2016-09-05] MEDS: oxyCODONE IR 5 MG TAB PO PRN (08:52)
--- NOTE | 2016-09-05 09:42 | PCMIDPN ---
Assessment/Plan: Assessment/Plan: * Encephalopathy: Unclear etiology. Imaging with MRI limited by cervical spine disease. Considerations include infectious and noninfectious etiologies such as stroke. Infectious causes of encephalopathy of consideration would potentially include West Nile virus or herpes simplex encephalitis although this is typically associated with other symptoms such as fever. However, fever can be less predictive in the elderly. CJD would be consideration with myoclonic like findings in lower extremities although unusual onset in this age group. Agree with plans for neurology consultation and contrast CT scan of brain and lumbar puncture to further evaluate if CT scan does not reveal evidence of stroke. Will send serum West Nile virus antibody and syphilis IgG. * Staph capitis bacteremia: Unclear if these represent true pathogens versus skin contaminants particularly in light of 2 separate isolates present in 1 blood culture. Would not expect this to contribute to persistent cephalopathy with ongoing vancomycin therapy. Transthoracic echocardiogram without evidence of vegetation. Clinical findings and plan reviewed with Dr. Emery hawley a.m.. 09/05/16 09:37 09/05/16 09:44 Subjective: Patient responds to voice but not in meaningful fashion. Able to follow some simple commands such as squeezing hands. Objective: Vital Signs Temp Pulse Resp BP Pulse Ox 36.4 C 80 16 168/76 H 94 09/05/16 04:00 09/05/16 04:00 09/05/16 04:00 09/05/16 04:00 09/05/16 04:00 Laboratory Results 09/04/16 07:48 09/05/16 08:14 09/04/16 09/05/16 09/06/16 05:59 05:59 05:59 Intake Total 1427 1170 Output Total 800 1700 Balance 627 -530 Vancomycin # 4 Blood cultures x2 05/04/2016 no growth - Physical Exam General Appearance: no apparent distress, non-toxic EENT: No thrush Respiratory: lungs clear Cardiac/Chest: regular rate, rhythm, No systolic murmur Extremities: No inflammation Abdomen: non-tender, No distended Skin: No embolic lesions Neuro/Psych: confused, other (Myoclonic like activity with stimulation of lower extremities) ICD10 Worksheet Patient Problems: Problems Problem Status Onset Altered mental status Acute Abdominal pain Acute Hypercalcemia Acute Hypokalemia Acute Lung mass Acute Weakness Acute
[2016-09-05] MEDS ORDERED: IOPAMIDOL (ISOVUE-300) 100 ML BTL ONE (09:43)
[2016-09-05] MEDS ORDERED: NALOXONE HCL 0.4 MG/ML INJ IVP PRN (10:40)
--- NOTE | 2016-09-05 11:17 | GCON ---
[f rep st] CONSULTATION NEUROLOGY CONSULTATION REFERRING PHYSICIAN: Dr. Land CHIEF COMPLAINT: Encephalopathy. Billing information: 50 minutes total floor time reviewing the patient's medical records, lab studies, head CT images and reviewing notes including recommendations from Neurology. HISTORY OF PRESENT ILLNESS: I reviewed the patient's extensive medical records here and presentation with encephalopathy with myoclonus. He had a head CT without contrast this morning, which has not been interpreted yet. I reviewed the images which show significant atrophy. He is being followed by Infectious Disease as well, and will likely have a lumbar puncture to rule out a COMPLAINT INVESTIGATOR infection. He also had some mild multiple metabolic derangements upon presentation. I understand he may have had memory problems as a longstanding issue but had a fairly rapid change to the encephalopathic picture we now see. Dr. Land had been consulting with Dr. Dunn for the last two days regarding the case. I reviewed that as well. He has been off all opiates for 4 days now For past medical history, review of systems, social history, family history, please see the admitting history and physical PHYSICAL EXAMINATION: VITAL SIGNS: Blood pressure is 166/90, he is afebrile at 36.5 Centigrade, O2 sats 93%, heart rate 79. GENERAL: The patient did not appear to be in any acute distress. NEUROLOGIC: Higher mental function: He is encephalopathic. He will answer me appropriately with verbal responses, but his response is inconsistent as he is drowsy and confused at times. Cranial nerve exam: His eye movements are symmetric. There were no abnormal movements in his face on my exam. Motor exam: He was moving all 4 extremities symmetrically and did have 2 myoclonic jerks in his lower extremities symmetrically. Sensory and coordination exam could not be accurately assessed. IMPRESSION AND PLAN: 1. Encephalopathy Overall, his clinical presentation and picture suggest an underlying metabolic/ toxic encephalopathy. Certainly, other neuro degenerative processes are in the differential diagnosis. However, his sudden change would more support a toxic/ metabolic encephalopathy. I recommend stay off opiate medication to assess for any improvement. I also agree with a lumbar puncture to exclude any central nervous system infection. He may have an underlying dementia based on the degree of atrophy I saw on his head CT without contrast, with a lower cognitive reserve in the setting of psychotropic medications and/or infection. We will follow up on the above. Thank you for this consultation. /[id number]/MODL MTDD
[2016-09-05] MEDS: ENOXAPARIN 40 MG/0.4 ML SYR SC SCH (14:44)
[2016-09-05 17:07] LABS: INR 1.15 (0.83-1.16); PROTIME(PATIENT) 14.7 SEC (12.0-15.0)
[2016-09-05] MEDS ORDERED: LIDOCAINE 1% 300 MG/30 ML SDV ONE (17:22)
[2016-09-05] MEDS ORDERED: NS 1,000 ML IV SCH (17:45)
[2016-09-05] MEDS: MULTIVITAMINS 1 EACH TAB PO SCH (18:16)
[2016-09-05] MEDS: SENNOSIDES/DOCUSATE SODIUM TAB PO SCH ×2 (18:16→20:50)
[2016-09-05] MEDS: VITAMIN B COMPLEX 1 EA CAP/TAB PO SCH (18:17)
[2016-09-05] MEDS: TAMSULOSIN HCL 0.4 MG CAP PO SCH (18:17)
[2016-09-05] MEDS: VANCOMYCIN 1.25 GM in D5W 250 ML IV SCH (19:42)
[2016-09-05 20:05] LABS: IONIZED CALCIUM 1.04 MMOL/L (1.12-1.30)
[2016-09-05] MEDS ORDERED: CALCIUM GLUCONATE 50 ML IV ONE (21:26)
[2016-09-06 06:07] LABS: HEMATOCRIT 37.6 % (40.0-51.0); HEMOGLOBIN 12.9 g/dL (13.7-17.5); MEAN CELL HEMOGLOBIN 30.1 pg (27.9-34.1); MEAN CELL HEMOGLOBIN CONCENTR. 34.3 g/dL (32.4-36.7); MEAN CELL VOLUME 87.6 fL (81.5-99.8); RED BLOOD CELL COUNT 4.29 10^6/uL (4.40-6.38); RED CELL DISTRIBUTION WIDTH 14.4 % (11.5-15.2)
[2016-09-06 06:46] LABS: ANION GAP 9 mEq/L (8-16); CALCIUM 7.9 mg/dL (8.5-10.4); CARBON DIOXIDE 19 mEq/l (22-31); CHLORIDE 108 mEq/L (97-110); CREATININE 0.6 mg/dL (0.7-1.3); GLOMERULAR FILTRATION RATE > 60; GLUCOSE 58 mg/dL (70-100); POTASSIUM 3.6 mEq/L (3.5-5.2); SODIUM 136 mEq/L (134-144)
[2016-09-06] MEDS: POTASSIUM Cl (KCl) 40 MEQ in NS 1,000 ML IV SCH (07:46)
--- NOTE | 2016-09-06 08:28 | HOSPPROG ---
Hospitalist Progress Note Assessment/Plan: #Acute metabolic encephalopathy: improved today, recognized son, more conversant -unable to obtain MRI due to cervical anatomy.CT showed moderate atrophy. Did not tolerate LP. Will have anesthesiology assist with sedation for LP. HSV/VZV/ West Nile,syphilis pending. -Hypoglycemia treat. Hold opioids #Dysphagia: passed swallow eval #Diarrhea: C diff negative #Hypoglycemia: on D5, more alert so safe to eat #Staph capitis bacteremia: unclear if true infection since afebrile, no leukocytosis. IV vanc, TTE with no vegetation. Appreciate ID consult #Pleural mass-like lingula thickening: possible asbestos? 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 No acute PNA. Seen on prior CT in 2015. Had fluid studies in 2010 negative for cancer #Hypokalemia: repleted #Spinal stenosis: holding opioids with AMS. May make MRI difficult #Chronic pain and opioid dependence: may contributed to encephalopathy. Narcan did not help. 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 #Diet: dysphagia #Deconditioning: PT/OT #DVT ppx: Lovenox #Disp: warrants inpt admission given acute encephalopathy warranting imaging Subjective: denies pain Objective: Vital Signs Temp Pulse Resp BP Pulse Ox 36.7 C 70 16 166/71 H 100 09/06/16 04:00 09/06/16 04:00 09/06/16 04:00 09/06/16 04:00 09/06/16 04:00 Laboratory Results 09/06/16 05:40 09/06/16 05:40 09/05/16 09/06/16 09/07/16 05:59 05:59 05:59 Intake Total 1170 Output Total 1700 1650 Balance -530 -1650 PT 14.7 SEC (12.0-15.0) 09/05/16 16:45 INR 1.15 (0.83-1.16) 09/05/16 16:45 - Physical Exam Constitutional: no apparent distress Eyes: PERRL Ears, Nose, Mouth, Throat: moist mucous membranes Cardiovascular: regular rate and rhythym Respiratory: no respiratory distress Gastrointestinal: normoactive bowel sounds, soft, non-tender abdomen Genitourinary: no bladder fullness Skin: warm Musculoskeletal: other (moves all extremities when asked.) Neurologic: CN II-XII Intact, other (more conversant. Recognized his son and [employer] on the TV. Follows more commands today) Psychiatric: encephalopathic ICD10 Worksheet Patient Problems: Problems Problem Status Onset Altered mental status Acute Abdominal pain Acute Hypercalcemia Acute Hypokalemia Acute Lung mass Acute Weakness Acute
[2016-09-06] MEDS ORDERED: D50W 25 GM/50 ML SYR IVP PRN (09:11)
[2016-09-06] MEDS ORDERED: D10W 250 ML BAG IV PRN ×2 (09:19→09:53)
--- NOTE | 2016-09-06 09:41 | NEUROPROG ---
Assessment: 1. Encephalopathy The patient did not tolerate lumbar puncture yesterday. We will try again with sedation. I agree with holding narcotic pain medication indefinitely. The head CT showed no abnormal enhancement or acute changes. Moderate atrophy was noted by Radiology. Will follow up after lumbar puncture results. Subjective: No significant improvement Objective: Vital Signs Temp Pulse Resp BP Pulse Ox 37.0 C 67 20 173/86 H 97 09/06/16 08:00 09/06/16 08:00 09/06/16 08:00 09/06/16 08:00 09/06/16 08:00 Laboratory Results 09/06/16 05:40 09/06/16 05:40 09/05/16 09/06/16 09/07/16 05:59 05:59 05:59 Intake Total 1170 Output Total 1700 1650 Balance -530 -1650 PT 14.7 SEC (12.0-15.0) 09/05/16 16:45 INR 1.15 (0.83-1.16) 09/05/16 16:45 Patient is awake but does not answer questions appropriately. He is encephalopathic The patient was moving all 4 extremities symmetrically. No clonus at the ankles Allergies/Adverse Reactions: No Known Allergies Allergy (Verified 09/01/16 15:34)
[2016-09-06] MEDS: D5W NS 1,000 ML IV SCH (09:45)
[2016-09-06] MEDS: SENNOSIDES/DOCUSATE SODIUM TAB PO SCH ×2 (09:46→22:23)
[2016-09-06] MEDS: VITAMIN B COMPLEX 1 EA CAP/TAB PO SCH (09:46)
[2016-09-06] MEDS: TAMSULOSIN HCL 0.4 MG CAP PO SCH (09:46)
[2016-09-06] MEDS: MULTIVITAMINS 1 EACH TAB PO SCH (09:46)
[2016-09-06] MEDS: ENOXAPARIN 40 MG/0.4 ML SYR SC SCH (09:55)
--- NOTE | 2016-09-06 15:25 | PCMIDPN ---
Assessment/Plan: #Encephalopathy of unclear etiology, generally unchanged since my exam a day ago - although patient has moments where he recognizes family members. Unfortunately MRI not obtainable. Plan lumbar puncture but was canceled today as patient received heparin. considerations from ID perspective as detailed by my partner yesterday include West Nile, herpes encephalitis and syphilis -- await results of lumbar puncture tomorrow #Staph capitis positive blood cultures from 09/01: Unclear if these represent true pathogens versus skin contaminants particularly in light of 2 separate isolates present in 1 blood culture. Would not expect this to contribute to persistent encephalopathy after 3 days of vancomycin therapy. TTE Negative -- continuing vancomycin for now meds vancomycin 1.25 g IV daily, # 3 microbiology 09/03 Blood cultures: 2 sets no growth today Subjective: patient is sleeping in the bed. No specific complaints from the family or new observation Objective: Vital Signs Temp Pulse Resp BP Pulse Ox 36.7 C 53 L 20 153/71 H 97 09/06/16 12:00 09/06/16 12:00 09/06/16 12:00 09/06/16 12:00 09/06/16 12:00 Laboratory Results 09/06/16 05:40 09/06/16 05:40 09/05/16 09/06/16 09/07/16 05:59 05:59 05:59 Intake Total 1170 Output Total 1700 1650 Balance -530 -1650 T-max 37.6degrees general: Elderly male lying in bed without spontaneous speech but no distress ; following commands HEENT: Moist mucous membranes cardiovascular: [place] with faint systolic murmur Chest: Shallow inspiratory effort no crackles Extremities: No clubbing cyanosis or edema Skin: No rashes Neurologic Sleepy but arousable Moving all 4 extremities Some myotonic jerks on the right side Disoriented ICD10 Worksheet Patient Problems: Problems Problem Status Onset Altered mental status Acute Abdominal pain Acute Hypercalcemia Acute Hypokalemia Acute Lung mass Acute Weakness Acute
[2016-09-06] MEDS: VANCOMYCIN 1.25 GM in D5W 250 ML IV SCH (17:04)
[2016-09-07 05:51] LABS: INR 1.18 (0.83-1.16)
[2016-09-07 05:52] LABS: APTT 30.9 SEC (23.0-38.0)
[2016-09-07] MEDS: D5W NS 1,000 ML IV SCH ×2 (06:01→15:41)
[2016-09-07 06:02] LABS: ANION GAP 7 mEq/L (8-16); CALCIUM 7.7 mg/dL (8.5-10.4); CARBON DIOXIDE 23 mEq/l (22-31); CHLORIDE 105 mEq/L (97-110); CREATININE 0.6 mg/dL (0.7-1.3); GLOMERULAR FILTRATION RATE > 60; GLUCOSE 144 mg/dL (70-100); SODIUM 135 mEq/L (134-144)
[2016-09-07 06:07] LABS: POTASSIUM 2.6 mEq/L (3.5-5.2)
[2016-09-07] MEDS ORDERED: PROTOCOL POTASSIUM 1 DOSE MISC PRN (07:05)
[2016-09-07] MEDS ORDERED: POTASSIUM CL 10 MEQ TAB PO ONE ×2 (07:25→19:42)
[2016-09-07] MEDS ORDERED: POTASSIUM CL 20 MEQ/15 ML UDCUP PO ONE (07:30)
--- NOTE | 2016-09-07 11:41 | HOSPPROG ---
Hospitalist Progress Note Assessment/Plan: #Acute metabolic encephalopathy: more alert, not oriented. No MRI due to cervical anatomy. CT showed moderate atrophy. Will have anesthesiology assist with sedation for LP. HSV/VZV/West Nile pending. Negative syphilis. Hypoglycemia resolved. Hold opioids #Dysphagia: dysphagia diet #Diarrhea: C diff negative #Hypoglycemia: resolved #Staph capitis bacteremia: unclear if true infection since afebrile, no leukocytosis. IV vanc, TTE with no vegetation. Appreciate ID consult #Pleural mass-like lingula thickening: possible asbestos? 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 No acute PNA. Seen on prior CT in 2015. Had fluid studies in 2010 negative for cancer #Hypokalemia: replete, repeat BMP #Spinal stenosis: holding opioids with AMS #Chronic pain and opioid dependence: may contributed to encephalopathy. Narcan did not help. 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 Denies pain or SOLOMON Objective: Vital Signs Temp Pulse Resp BP Pulse Ox 36.5 C 71 18 159/82 H 94 09/07/16 11:24 09/07/16 11:24 09/07/16 11:24 09/07/16 11:24 09/07/16 11:24 Laboratory Results 09/06/16 05:40 09/07/16 05:26 09/06/16 09/07/16 09/08/16 05:59 05:59 05:59 Intake Total 1400 1232 Output Total 1650 1150 800 Balance -1650 250 432 PT 15.0 SEC (12.0-15.0) 09/07/16 05:26 INR 1.18 (0.83-1.16) H 09/07/16 05:26 - Physical Exam Constitutional: no apparent distress, other (more alert today) Eyes: PERRL Ears, Nose, Mouth, Throat: moist mucous membranes Cardiovascular: regular rate and rhythym, no murmur, rub, or gallop Respiratory: no respiratory distress, no rales or rhonchi Gastrointestinal: normoactive bowel sounds, soft, non-tender abdomen Genitourinary: no bladder fullness Skin: warm Musculoskeletal: full muscle strength Neurologic: AAOx3, CN II-XII Intact, other (alert to self, not place, date. Can tell me son and 's name? Follows commands) Psychiatric: encephalopathic ICD10 Worksheet Patient Problems: Problems Problem Status Onset Altered mental status Acute Abdominal pain Acute Hypercalcemia Acute Hypokalemia Acute Lung mass Acute Weakness Acute
[2016-09-07] MEDS: POTASSIUM Cl (KCl) 100 ML IV SCH ×2 (11:48→13:33)
[2016-09-07] MEDS: VITAMIN B COMPLEX 1 EA CAP/TAB PO SCH (13:31)
[2016-09-07] MEDS: MULTIVITAMINS 1 EACH TAB PO SCH (13:32)
[2016-09-07] MEDS: TAMSULOSIN HCL 0.4 MG CAP PO SCH ×2 (13:32→13:47)
[2016-09-07] MEDS: SENNOSIDES/DOCUSATE SODIUM TAB PO SCH ×2 (13:47→20:49)
[2016-09-07 14:53] LABS: INTERPRETATION See Comments; WEST NILE VIRUS IGG Negative (Negative); WEST NILE VIRUS IGM Negative (Negative)
[2016-09-07 15:00] LABS: ANION GAP 10 mEq/L (8-16); CALCIUM 7.8 mg/dL (8.5-10.4); CARBON DIOXIDE 21 mEq/l (22-31); CHLORIDE 103 mEq/L (97-110); CREATININE 0.5 mg/dL (0.7-1.3); GLOMERULAR FILTRATION RATE > 60; GLUCOSE 146 mg/dL (70-100); POTASSIUM 3.2 mEq/L (3.5-5.2); SODIUM 134 mEq/L (134-144)
[2016-09-07] MEDS ORDERED: LIDOCAINE 1% 300 MG/30 ML SDV ONE (15:33)
[2016-09-07] MEDS: LORazepam 2 MG/ML INJ IVP PRN (16:09)
--- NOTE | 2016-09-07 17:04 | NEUROPROG ---
Assessment: 1. Encephalopathy 35 total minutes floor time; over 50% counseling regarding the patient's encephalopathy. I was able to meet with his family today including son and . Each day he seems to be improving in terms of his level of alertness and awareness. He will have his lumbar puncture today to rule out NEGATIVE RETOUCHER infection. 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 He will likely need placement to a [facility] facility assuming this CSF exam is negative. We will follow up on the above. Subjective: Improvement each day Objective: Vital Signs Temp Pulse Resp BP Pulse Ox 36.7 C 68 18 167/84 H 93 09/07/16 15:31 09/07/16 15:31 09/07/16 15:31 09/07/16 15:31 09/07/16 15:31 Laboratory Results 09/06/16 05:40 09/07/16 13:38 09/06/16 09/07/16 09/08/16 05:59 05:59 05:59 Intake Total 1400 1232 Output Total 1650 1150 1175 Balance -1650 250 57 PT 15.0 SEC (12.0-15.0) 09/07/16 05:26 INR 1.18 (0.83-1.16) H 09/07/16 05:26 Patient is awake and alert He could not tell me his year or current year When I asked his name, after a few seconds of delay, he told me correctly "Fortino " He could not tell me his last name Allergies/Adverse Reactions: No Known Allergies Allergy (Verified 09/01/16 15:34)
[2016-09-07] MEDS: VANCOMYCIN 1.25 GM in D5W 250 ML IV SCH (18:01)
[2016-09-07 18:11] LABS: CSF APPEARANCE CLEAR (CLEAR); CSF COLOR COLORLESS (COLORLESS)
[2016-09-07 18:12] LABS: CSF SUPERNATANT COLORLESS (COLORLESS); WBC, CSF 3 /mm3 (0-5)
[2016-09-07 18:16] LABS: PROTEIN, CSF 33 mg/dL (12-60)
[2016-09-07 18:18] LABS: POTASSIUM 3.1 mEq/L (3.5-5.2)
[2016-09-07] MEDS: ACETAMINOPHEN 325 MG TAB PO PRN (20:29)
[2016-09-08] MEDS: D5W NS 1,000 ML IV SCH (02:18)
[2016-09-08 06:05] LABS: ANION GAP 5 mEq/L (8-16); CALCIUM 7.4 mg/dL (8.5-10.4); CARBON DIOXIDE 24 mEq/l (22-31); CHLORIDE 103 mEq/L (97-110); CREATININE 0.6 mg/dL (0.7-1.3); GLOMERULAR FILTRATION RATE > 60; GLUCOSE 124 mg/dL (70-100); POTASSIUM 2.8 mEq/L (3.5-5.2); SODIUM 132 mEq/L (134-144)
[2016-09-08] MEDS ORDERED: POTASSIUM CL 10 MEQ TAB PO ONE ×2 (07:45→19:51)
[2016-09-08] MEDS: TAMSULOSIN HCL 0.4 MG CAP PO SCH (08:08)
[2016-09-08] MEDS: VITAMIN B COMPLEX 1 EA CAP/TAB PO SCH (08:08)
[2016-09-08] MEDS: MULTIVITAMINS 1 EACH TAB PO SCH (08:08)
[2016-09-08] MEDS: SENNOSIDES/DOCUSATE SODIUM TAB PO SCH ×2 (08:09→21:53)
--- NOTE | 2016-09-08 08:36 | HOSPPROG ---
Hospitalist Progress Note Assessment/Plan: #Acute metabolic encephalopathy: No MRI due to cervical anatomy. CT showed moderate atrophy. West Nile and syphilis negative. HSV/VZV. Hypoglycemia resolved. Hold opioids #MRSA: bacteremia: 1 bottle with MRSA. Afebrile. TTE 09/03 showed sclerotic AV. PICC line for IV abx at DC. 2 weeks #Dysphagia: dysphagia diet #Diarrhea: C diff negative #Hypoglycemia: resolved #Pleural mass-like lingula thickening: possible asbestos? 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 No acute PNA. Seen on prior CT in 2015. Had fluid studies in 2010 negative for cancer #Hypokalemia: replete, repeat BMP #Spinal stenosis: holding opioids with AMS #Chronic pain and opioid dependence: may contributed to encephalopathy. Narcan did not help. 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 Denies SOLOMON, back or abd pain Objective: Vital Signs Temp Pulse Resp BP Pulse Ox 36.8 C 70 16 151/75 H 94 09/08/16 08:00 09/08/16 08:00 09/08/16 08:00 09/08/16 08:00 09/08/16 08:00 Microbiology 09/07/16 17:01 Gram Stain - Final Cerebral Spinal Fluid Laboratory Results 09/06/16 05:40 09/08/16 05:22 09/07/16 09/08/16 09/09/16 05:59 05:59 05:59 Intake Total 1400 2807 163 Output Total 1150 1975 Balance 250 832 163 PT 15.0 SEC (12.0-15.0) 09/07/16 05:26 INR 1.18 (0.83-1.16) H 09/07/16 05:26 - Physical Exam Constitutional: no apparent distress Eyes: PERRL Ears, Nose, Mouth, Throat: moist mucous membranes, hearing normal Cardiovascular: regular rate and rhythym, no murmur, rub, or gallop Respiratory: no respiratory distress, no rales or rhonchi Gastrointestinal: normoactive bowel sounds, soft, non-tender abdomen, no palpable masses Genitourinary: montero in urethra Skin: warm Musculoskeletal: generalized weakness Neurologic: other (alert to self only. Follows commmands) ICD10 Worksheet Patient Problems: Problems Problem Status Onset Altered mental status Acute MRSA (methicillin resistant Staphylococcus aureus) Acute ~09/01/16 Abdominal pain Acute Hypercalcemia Acute Hypokalemia Acute Lung mass Acute Weakness Acute
--- NOTE | 2016-09-08 08:57 | NEUROPROG ---
Assessment: 1. Encephalopathy 35 total minutes floor time; over 50% counseling regarding the patient's encephalopathy. Lumbar puncture shows 3 white blood cells and normal protein. No evidence of MAINTENANCE CONSTRUCTION HELPER infection. I understand there is some further evaluation ongoing regarding blood cultures. From my standpoint, hold opiate pain medications indefinitely. I will defer to Infectious Disease regarding further management of blood culture findings. He will likely need disposition [facility]. No further recommendations now. Will continue following this very pleasant gentleman p.r.n. please do not hesitate to call if there any questions or changes in neurologic status Subjective: No new symptoms Objective: Vital Signs Temp Pulse Resp BP Pulse Ox 36.8 C 70 16 151/75 H 94 09/08/16 08:00 09/08/16 08:00 09/08/16 08:00 09/08/16 08:00 09/08/16 08:00 Microbiology 09/07/16 17:01 Gram Stain - Final Cerebral Spinal Fluid Laboratory Results 09/06/16 05:40 09/08/16 05:22 09/07/16 09/08/16 09/09/16 05:59 05:59 05:59 Intake Total 1400 2807 163 Output Total 1150 1975 Balance 250 832 163 PT 15.0 SEC (12.0-15.0) 09/07/16 05:26 INR 1.18 (0.83-1.16) H 09/07/16 05:26 Patient is awake and alert, confused Allergies/Adverse Reactions: No Known Allergies Allergy (Verified 09/01/16 15:34)
--- NOTE | 2016-09-08 09:20 | PCMIDPN ---
Assessment/Plan: #Encephalopathy of unclear etiology, LP negative. Mental status much improved. WNV, syphilis negative #Polymicrobial bacteremia Staph capitis and MRSA : very odd, unclear if true bacteremia. Faint SM, ECHO with sclerotic AV. Rapid blood cx clearance with 09/03 negative after 1 dose vancomycin less suggestive of endocarditis --plan 2 weeks of vancomycin because unable to sort out if true bacteremia and risks associated SA bacteremia, therefore would treat through 09/19/16 --check Vanco trough today, creatinine normal today --Hold off on filling out interagency until vanco T today meds vancomycin 1.25 g IV daily, # 5 microbiology 09/03 Blood cultures: 2 sets no growth today 09/07 CSF gram stain neg family updated. Subjective: patient underwent a lumbar puncture yesterday without difficulty Objective: Vital Signs Temp Pulse Resp BP Pulse Ox 36.8 C 70 16 151/75 H 94 09/08/16 08:00 09/08/16 08:00 09/08/16 08:00 09/08/16 08:00 09/08/16 08:00 Microbiology 09/07/16 17:01 Gram Stain - Final Cerebral Spinal Fluid Laboratory Results 09/06/16 05:40 09/08/16 05:22 09/07/16 09/08/16 09/09/16 05:59 05:59 05:59 Intake Total 1400 2807 163 Output Total 1150 1975 Balance 250 832 163 - Physical Exam General Appearance: non-toxic, other ( sleepy) EENT: dry mucous membranes Respiratory: normal breath sounds, No accessory muscle use Cardiac/Chest: regular rate, rhythm, systolic murmur ( faint) Extremities: No pedal edema Abdomen: non-tender, soft Skin: other ( no skin breakdown noted), No rash Neuro/Psych: alert, other ( no fluent speech in AM but later in afternoon some fluent speech and aggitation , only answers questions yes or no) - Time Spent With Patient Time Spent with Patient: greater than 35 minutes Time Spent with Patient: Greater than 35 minutes spent on this patients care, greater than 50% of time spent counseling, educating, and coordinating care regarding the above mentioned plan. ICD10 Worksheet Patient Problems: Problems Problem Status Onset Altered mental status Acute MRSA (methicillin resistant Staphylococcus aureus) Acute ~09/01/16 Abdominal pain Acute Hypercalcemia Acute Hypokalemia Acute Lung mass Acute Weakness Acute
[2016-09-08] MEDS ORDERED: LOPERAMIDE HCL 2 MG CAP PO PRN (09:45)
[2016-09-08] MEDS ORDERED: ALTEPLASE 2 MG VIAL IVP PRN (10:45)
[2016-09-08] MEDS: VANCOMYCIN 1.25 GM in D5W 250 ML IV SCH (18:05)
[2016-09-08] MEDS: ACETAMINOPHEN 325 MG TAB PO PRN (20:17)
[2016-09-09] MEDS: ACETAMINOPHEN 325 MG TAB PO PRN ×2 (03:27→17:28)
[2016-09-09 05:48] LABS: ANION GAP 7 mEq/L (8-16); CALCIUM 7.7 mg/dL (8.5-10.4); CARBON DIOXIDE 25 mEq/l (22-31); CHLORIDE 101 mEq/L (97-110); CREATININE 0.6 mg/dL (0.7-1.3); GLOMERULAR FILTRATION RATE > 60; GLUCOSE 92 mg/dL (70-100); POTASSIUM 3.3 mEq/L (3.5-5.2); SODIUM 133 mEq/L (134-144)
[2016-09-09] MEDS ORDERED: POTASSIUM CL 10 MEQ TAB PO ONE (07:35)
[2016-09-09] MEDS: POTASSIUM CL 20 MEQ/15 ML UDCUP PO ONE ×2 (08:27→08:46)
[2016-09-09] MEDS: MULTIVITAMINS 1 EACH TAB PO SCH (08:32)
[2016-09-09] MEDS: VITAMIN B COMPLEX 1 EA CAP/TAB PO SCH (08:32)
--- NOTE | 2016-09-09 08:36 | PDIAF ---
- Diagnosis Diagnosis: MRSA bacteremia Code Status: Do Not Resuscitate - Medication Management Discharge Medications: Medications to Continue on Transfer Ferrous Sulfate [Ferrous Sulf 325 MG (*)] 325 mg PO DAILY 09/01/16 [Last Taken Unknown] Hydrochlorothiazide [HCTZ (*)] 25 mg PO DAILY 09/01/16 [Last Taken Unknown] Multivitamins [Multivitamin (*)] 1 each PO DAILY 09/01/16 [Last Taken Unknown] Pregabalin [Lyrica] 150 mg PO BID 09/01/16 [Last Taken Unknown] Sennosides/Docusate Sodium [Senna-S Tablet] 1 each PO DAILY PRN 09/01/16 [Last Taken Unknown] Tamsulosin HCl [Flomax 0.4 MG (*)] 0.4 mg PO DAILY 09/01/16 [Last Taken Unknown] Tapentadol HCl [Nucynta ER] 250 mg PO Q12 09/01/16 [Last Taken Unknown] Vitamin B Complex [B Complex] 1 each PO DAILY 09/01/16 [Last Taken Unknown] oxyCODONE IR [Oxycodone Ir (*)] 15 mg PO BID 09/01/16 [Last Taken 08/31/16] Care Home Antibiotics: Vancomycin 1.25 g IV Q 24 hours Docket Specialist Antibiotic Stop Date: 09/19/16 Discharge Medications: Refer to the Discharge Home Medication list for PRN reason. PICC Care - Routine: Yes - Orders Diet Texture: Dysphagia 1 - Pureed, [place] Thick Liquids, Meds Crushed in Puree - Labs/Radiology CBC Date: 09/12/16 (Weekly Q Monday) CMP Date: 09/12/16 (Weekly Q Monday) Creatinine Date: 09/15/16 Vanco Trough Date and Time: 09/12/2016, 09/15/16 Call or Fax Lab and Imaging Results to: Dr. Dejesus [phone] - Follow Up Care Current Providers and Referrals: Patient,NotPresent [Unknown] - As per Instructions
[2016-09-09] MEDS: POTASSIUM Cl (KCl) 100 ML IV SCH ×3 (09:53→12:46)
[2016-09-09 10:56] VITALS: O2SAT 94
[2016-09-09] MEDS: SENNOSIDES/DOCUSATE SODIUM TAB PO SCH (13:14)
[2016-09-09] MEDS: TAMSULOSIN HCL 0.4 MG CAP PO SCH (13:14)
--- NOTE | 2016-09-09 14:42 | PDIAF ---
- Diagnosis Diagnosis: MRSA bacteremia Code Status: Do Not Resuscitate - Medication Management Discharge Medications: Medications to Continue on Transfer Ferrous Sulfate [Ferrous Sulf 325 MG (*)] 325 mg PO DAILY 09/01/16 [Last Taken Unknown] Hydrochlorothiazide [HCTZ (*)] 25 mg PO DAILY 09/01/16 [Last Taken Unknown] Multivitamins [Multivitamin (*)] 1 each PO DAILY 09/01/16 [Last Taken Unknown] Pregabalin [Lyrica] 150 mg PO BID 09/01/16 [Last Taken Unknown] Sennosides/Docusate Sodium [Senna-S Tablet] 1 each PO DAILY PRN 09/01/16 [Last Taken Unknown] Tamsulosin HCl [Flomax 0.4 MG (*)] 0.4 mg PO DAILY 09/01/16 [Last Taken Unknown] Vitamin B Complex [B Complex] 1 each PO DAILY 09/01/16 [Last Taken Unknown] Acetaminophen [Tylenol 325mg (*)] 650 mg PO Q4HRS PRN #0 tab 09/09/16 [Last Taken Unknown] Vancomycin [Vancomycin (*)] 1.25 gm IV Q24H vial 09/09/16 [Last Taken Unknown] Half-Way Antibiotics: Vancomycin 1.25 g IV Q 24 hours Senior Quality Assurance Engineer Antibiotic Stop Date: 09/19/16 Discharge Medications: Refer to the Discharge Home Medication list for PRN reason. PICC Care - Routine: Yes - Orders Diet Recommendation: no restrictions on diet Diet Texture: Dysphagia 1 - Pureed, [place] Thick Liquids, Meds Crushed in Puree - Labs/Radiology CBC Date: 09/12/16 (Weekly Q Monday) CMP Date: 09/12/16 (Weekly Q Monday) Creatinine Date: 09/15/16 Vanco Trough Date and Time: 09/12/2016, 09/15/16 Call or Fax Lab and Imaging Results to: Dr. Dejesus [phone] - Follow Up Care Current Providers and Referrals: Patient,NotPresent [Unknown] - As per Instructions
[2016-09-09] MEDS: VANCOMYCIN 1.25 GM in D5W 250 ML IV SCH (16:43)
[2016-09-09 17:42] VITALS: BP 178/99; PULSE 76; RESP 18; TEMP 97.6
--- NOTE | 2016-09-10 05:07 | GDS ---
[f rep st] DISCHARGE SUMMARY DISCHARGE DIAGNOSES: 1. Methicillin-resistant Staphylococcus aureus bacteremia. 2. Acute metabolic encephalopathy. 3. Dysphagia. 4. Clostridium difficile negative diarrhea. 5. Resolved hypoglycemia. 6. 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 7. Resolved hypokalemia. 8. Spinal stenosis with chronic back pain and chronic opioid dependence, now off pain medications d uring this hospitalization. 9. History of Whipple for diverticulum of the duodenum. 10. Tubovillous adenoma. 11. Dysphagia. 12. Deconditioning. CONSULTANTS: Dr. Geraldo Dejesus, Infectious Disease. Dr. Nelson Mendieta, Neurology. HOSPITAL COURSE AND STAY BY PROBLEM: 1. Acute encephalopathy in the setting of MRSA bacteremia: The patient has been seen by Neurology. He has had a lumbar puncture, which was not consistent with LOGGING TRACTOR OPERATOR SWAMP infection. During this hospital s keith, his opiate pain medications were held. On day of discharge, he is still confused. 2. MRSA bacteremia: Once again, the patient has been evaluated by Infectious Disease, who is recom mending that he get a complete IV vancomycin through 09/19/2016. He should follow up with Dr. Dejesus or one of his colleagues at the [facility] for Infectious Disease as scheduled. PHYSICAL EXAMINATION: VITAL SIGNS: On day of discharge, blood pressure 167/86, pulse 78, respirato ry rate 16, O2 saturation 94% on room air. Temperature afebrile. GENERAL: No acute distress. HEA RT: S1, S2. LUNGS: Clear. ABDOMEN: Soft. EXTREMITIES: No edema. NEURO: Patient is confused without focal motor deficits. DIAGNOSTICS DONE THIS HOSPITAL STAY: Echocardiogram done 09/03/2016, refer to report. Chest CT don e 09/03/2016 revealed bilateral pleural thickening. Refer to report for details. DISCHARGE MEDICATIONS: Please refer to discharge medication reconciliation in [facility] for details. DISCHARGE INSTRUCTIONS: The patient will be discharged from the hospital where he should follow up with Dr. Dejesus as instructed. The family has requested that he not be discharged on his home dose of oxycodone and Nucynta. If he does have pain, it may be reasonable to resume some of his chronic pa in medications since pain can worsen or trigger delirium. He should have monitoring of his vancomyc in levels as ordered by Infectious Disease. Greater than 30 minutes were spent on the discharge of this patient. /[id number]/MODL
[2016-09-12 15:14] LABS: MISCELLANEOUS TEST See Comments
[2016-09-12 18:30] LABS: SPECIMEN SOURCE CSF; VARICELLA ZOSTER NEGATIVE (Negative)
== END 2016-09-09 17:55 | DRG 92 ==
LOC: EDUNIT# → OBSVTOIN 17:23 → F3E 17:58
PROVIDERS: ADMIT Internal Medicine; ATTEND Internal Medicine
PROC: 009U3ZX Drainage of Spinal Canal, Percutaneous Approach, Diagnostic (ICD-10-PCS; principal; 2016-09-07)
PROC: 02HV33Z Insertion of Infusion Device into Superior Vena Cava, Percutaneous Approach (ICD-10-PCS; 2016-09-09)
DX: G92 Toxic encephalopathy (principal); G25.3 Myoclonus; T40.605A Adverse effect of unspecified narcotics, initial encounter; R78.81 Bacteremia; B95.7 Other staphylococcus as the cause of diseases classified elsewhere; B95.62 Methicillin resistant Staphylococcus aureus infection as the cause of diseases classified elsewhere; Z98.1 Arthrodesis status; G89.28 Other chronic postprocedural pain; M54.2 Cervicalgia; F11.20 Opioid dependence, uncomplicated; K59.03 Drug induced constipation; E87.6 Hypokalemia; I50.32 Chronic diastolic (congestive) heart failure; I10 Essential (primary) hypertension; Z87.891 Personal history of nicotine dependence; Z99.81 Dependence on supplemental oxygen
CPT/HCPCS: 80307; 82607-90; 84481-90; 87529-90; 87798-90; 92526-GN; 92610-GN; 96374; 97110-GP; 97116-GP; 97162-GP; 97166-GO; 97530-GP; 97535-GO; C1751; G0480; G8978-GP-CK; G8979-GP-CJ; G8987-GO-CM; G8988-GO-CK; G8996-GN-CK; G8997-GN-CI; J0610; J1650; J2060; J2250; J2310; J2405; J3370; Q9967

== ENCOUNTER 2018-02-18 17:29 | Inpatient (IN) | payer OTHER, BC ==
--- NOTE | 2018-02-18 17:44 | EDPHY ---
H & P Stated Complaint: R wrist numbness and right thumb pain Time Seen by Provider: 02/18/18 17:29 HPI/ROS: CHIEF COMPLAINT: Right hand weakness HISTORY OF PRESENT ILLNESS: The patient presents the ED with a 2 day history of right hand weakness. The patient states that he is clumsy and can no longer write with his right hand he feels that his hand shake his lost strength. The patient does report some associated numbness along the radial aspect of his thumb. The patient is also having some pain with finger movement. Patient does have a history of multiple spinal surgeries by his report. He denies any a left upper extremity or lower extremity complaints. He denies any complaints of numbness or weakness the outside of his right arm. The patient denies any fever, cough or congestion. The patient denies any history of gout. REVIEW OF SYSTEMS: A comprehensive 10 point review of systems is otherwise negative aside from elements mentioned in the history of present illness. Source: Patient Exam Limitations: No limitations - Personal History Current Tetanus Diphtheria and Acellular Pertussis (TDAP): Unsure - Medical/Surgical History Hx Asthma: No Hx Chronic Respiratory Disease: Yes Hx Diabetes: No Hx Cardiac Disease: No Hx Renal Disease: No Hx Cirrhosis: No Hx Alcoholism: No Hx HIV/AIDS: No Hx Splenectomy or Spleen Trauma: No Other PMH: back surg./ WHIPPLE procedure. home o2 nite- 2 L. pt self caths (? bph?) - Social History Smoking Status: Unknown if ever smoked - Physical Exam Exam: General Appearance: Elderly male, no acute distress Eyes: Pupils equal and round no pallor or injection ENT, Mouth: Mucous membranes moist Respiratory: There are no retractions, lungs are clear to auscultation Cardiovascular: Regular rate and rhythm Gastrointestinal: Abdomen is soft and nontender, no masses, bowel sounds normal Neurological: Alert and oriented x4, motor exam normal with the exception of the right upper extremity which demonstrates a 4/5 auto body straightener, 5-/5 wrist extension and slight pronator drift Skin: Warm and dry, no rashes Musculoskeletal: Significant kyphosis noted Extremities: Tenderness to palpation over the right 1st MCP Psychiatric: Patient is oriented X 3, there is no agitation Constitutional: Initial Vital Signs Temperature (C) 37.3 C 02/18/18 17:38 Heart Rate 99 02/18/18 17:38 Respiratory Rate 18 02/18/18 17:38 Blood Pressure 195/112 H 02/18/18 17:38 O2 Sat (%) 98 02/18/18 17:38 O2 Delivery Mode Room Air,Nasal Cannula O2 (L/minute) 3 Allergies/Adverse Reactions: No Known Allergies Allergy (Verified 09/01/16 15:34) Home Medications: Medication Instructions Recorded Ferrous Sulfate [Ferrous Sulf 325 325 mg PO DAILY 09/01/16 MG (*)] Hydrochlorothiazide [HCTZ (*)] 25 mg PO DAILY 09/01/16 Multivitamins [Multivitamin (*)] 1 each PO DAILY 09/01/16 Pregabalin [Lyrica] 150 mg PO BID 09/01/16 Sennosides/Docusate Sodium 1 each PO DAILY PRN 09/01/16 [Senna-S Tablet] Tamsulosin HCl [Flomax 0.4 MG (*)] 0.4 mg PO DAILY 09/01/16 Vitamin B Complex [B Complex] 1 each PO DAILY 09/01/16 Acetaminophen [Tylenol 325mg (*)] 650 mg PO Q4HRS PRN #0 tab 09/09/16 Vancomycin [Vancomycin (*)] 1.25 gm IV Q24H vial 09/09/16 Medical Decision Making - Diagnostics EKG Interpretation: EKG: Complete interpretation has been separately recorded in the [employer] archive. Summary impression: Sinus rhythm, rate 87. Impression normal ED Course/Re-evaluation: The patient presents the ED with a several day history of right arm weakness. His examination is significant only for weakness noted in the right hand. He is having a weak auto body straightener and weakness with wrist extension. The patient does have tenderness as well which he reports is an acute finding. There is no significant warmth or erythema. The patient denies any additional acute neurologic complaints. I spoke with the patient's son on the phone who reports the patient usually is able to ambulate. The patient's son tells me that he is basically unable to get an MRI secondary to his inability to lay flat. As I evaluate the patient he has both pain weakness involving the right upper extremity. It is certainly possible there is a process such as gout contributing to the symptoms today. I cannot exclude the possibility of a subacute stroke or cervical stenosis. The patient will be admitted to the hospital for further evaluation and management. Consultation was made with the hospitalist service at 7:00 p.m.. The patient has had symptoms for 2 days and would not be a candidate for thrombolytics therapy in the event this is a presentation of a subacute stroke. 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 Differential Diagnosis: Differential diagnosis considered includes gout, stroke, cervical radiculopathy , myofascial strain - Data Points Laboratory Results: Laboratory Results 02/18/18 17:50 02/18/18 02/18/18 02/18/18 17:53 17:50 17:50 WBC 8.00 10^3/uL 10^3/uL (3.80-9.50) RBC 3.95 10^6/uL L 10^6/uL (4.40-6.38) Hgb 11.3 g/dL L g/dL (13.7-17.5) POC Hgb 12.6 gm/dL L gm/dL (13.7-17.5) Hct 37.7 % L % (40.0-51.0) POC Hct 37 % L % (40-51) MCV 95.4 fL fL (81.5-99.8) MCH 28.6 pg pg (27.9-34.1) MCHC 30.0 g/dL L g/dL (32.4-36.7) RDW 14.2 % % (11.5-15.2) Plt Count 198 10^3/uL 10^3/uL (150-400) MPV 10.5 fL fL (8.7-11.7) Neut % (Auto) 67.2 % % (39.3-74.2) Lymph % (Auto) 22.6 % % (15.0-45.0) [place] % (Auto) 8.0 % % (4.5-13.0) Eos % (Auto) 1.8 % % (0.6-7.6) Baso % (Auto) 0.1 % L % (0.3-1.7) Nucleat RBC Rel Count 0.0 % % (0.0-0.2) Absolute Neuts (auto) 5.38 10^3/uL 10^3/uL (1.70-6.50) Absolute Lymphs (auto) 1.81 10^3/uL 10^3/uL (1.00-3.00) Absolute Monos (auto) 0.64 10^3/uL 10^3/uL (0.30-0.80) Absolute Eos (auto) 0.14 10^3/uL 10^3/uL (0.03-0.40) Absolute Basos (auto) 0.01 10^3/uL L 10^3/uL (0.02-0.10) Absolute Nucleated RBC 0.00 10^3/uL 10^3/uL (0-0.01) Immature Gran % 0.3 % % (0.0-1.1) Immature Gran # 0.02 10^3/uL 10^3/uL (0.00-0.10) ESR 41 MM/HR H MM/HR (0-20) POC Sodium 144 mEq/L mEq/L (135-145) POC Potassium 4.0 mEq/L mEq/L (3.3-5.0) POC Chloride 98 mEq/L mEq/L (97-110) POC BUN 18 mg/dL mg/dL (7-23) POC Creatinine 0.7 mg/dL mg/dL (0.7-1.3) POC Glucose 89 mg/dL mg/dL (70-100) Uric Acid 2.9 mg/dL L mg/dL (3.5-8.5) C-Reactive Protein 20.6 mg/L H mg/L (<10.0) Point of Care Test Results: Chemistry 02/18/18 17:53 POC Sodium 144 mEq/L mEq/L (135-145) POC Potassium 4.0 mEq/L mEq/L (3.3-5.0) POC Chloride 98 mEq/L mEq/L (97-110) POC BUN 18 mg/dL mg/dL (7-23) POC Creatinine 0.7 mg/dL mg/dL (0.7-1.3) POC Glucose 89 mg/dL mg/dL (70-100) ISTAT H&H 02/18/18 17:53 POC Hgb 12.6 gm/dL L gm/dL (13.7-17.5) POC Hct 37 % L % (40-51) Departure - Departure Disposition: [facility] Inpatient Acute Clinical Impression: Right hand weakness, Right hand pain Condition: Good Referrals: Patient,NotPresent [Unknown] - As per Instructions
--- NOTE | 2018-02-18 18:00 | CPEKG ---
Test Reason : OPEN Blood Pressure : / mmHG Vent. Rate : 087 BPM Atrial Rate : 087 BPM P-R Int : 179 ms QRS Dur : 099 ms QT Int : 370 ms P-R-T Axes : 031 052 022 degrees QTc Int : 445 ms Sinus rhythm Confirmed by Anam Mackey ([id number]) on 02/18/2018 5:59:13 PM Referred By: Confirmed By:Anam Mackey
[2018-02-18] MEDS ORDERED: IOPAMIDOL (ISOVUE 370) 100 ML BTL IV ONE (18:01)
[2018-02-18 18:02] LABS: PLATELET COUNT 198 10^3/uL (150-400)
[2018-02-18] MEDS ORDERED: KETOROLAC 15 MG/1 ML SDV IVP ONE (18:53)
--- NOTE | 2018-02-18 19:47 | PDGENHP ---
History and Physical - Chief Complaint right hand weakness - History of Present Illness 87 yo M with PMH that includes BPH, multiple neck and back surgeries with resultant severe kyphosis and chronic pain presenting with complaints of 3 days of right hand and wrist weakness. He notes that it has led to his being unable to hold things or use his walker safely. He has had some associated paresthesias as well. 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 He has not had any other significant changes in his health recently, denies any other numbness or weakness, has not had changes in vision, difficulty swallowing or increased confusion. He does feel as though he has had increased sob of late but no change in sputum production, no fever or chills, no change in his baseline o2 requirement. History Information - Allergies/Home Medication List Allergies/Adverse Reactions: No Known Allergies Allergy (Verified 09/01/16 15:34) Home Medications: Ferrous Sulfate [Ferrous Sulf 325 MG (*)] 325 mg PO DAILY 09/01/16 [Last Taken Unknown] Multivitamins [Multivitamin (*)] 1 each PO DAILY 09/01/16 [Last Taken Unknown] Pregabalin [Lyrica] 150 mg PO BID 09/01/16 [Last Taken Unknown] Sennosides/Docusate Sodium [Senna-S Tablet] 1 each PO DAILY PRN 09/01/16 [Last Taken Unknown] Tamsulosin HCl [Flomax 0.4 MG (*)] 0.4 mg PO DAILY 09/01/16 [Last Taken Unknown] Vitamin B Complex [B Complex] 1 each PO DAILY 09/01/16 [Last Taken Unknown] Mirtazapine [Mirtazapine] 15 mg PO HS 02/18/18 [Last Taken Unknown] Omeprazole [Omeprazole] 20 mg PO DAILY 02/18/18 [Last Taken Unknown] Potassium Chloride [Klor-Con M10] 10 meq PO DAILY 02/18/18 [Last Taken Unknown] traMADol HCL [Tramadol HCl] 50 mg PO HS PRN 02/18/18 [Last Taken Unknown] I have personally reviewed and updated: family history, medical history, social history, surgical history - Past Medical History CHF (diastolic), COPD (on chronic O2), hypertension Additional medical history: MRSA bacteremia in 2016. BPH. Biliary adenoma in 2011. Chronic neck and back pain. Chronic urinary retention. Chronic hypoxic respiratory failure on supplemental oxygen at all times. Anemia of chronic inflammatory disease with an iron deficient component. Chronic constipation. Chronic malnutrition. Spinal stenosis. C difficile colitis in 2011. hyponatremia. ? asbestosis. CKD - Surgical History Reports: appendectomy Additional surgical history: Neck surgery. Back surgery--multiple. Whipple surgery in 2011. Appendectomy. Uvuloplasty. TURP - Family History Additional family history: his father had colon cancer. 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, has 2 children one who lives in [place] Review of Systems Review of Systems: ROS: 10pt was reviewed & negative except for what was stated in HPI & below Physical Exam Physical Exam: Temp Pulse Resp BP Pulse Ox 37.3 C 89 18 190/109 H 94 02/18/18 17:38 02/18/18 18:54 02/18/18 18:54 02/18/18 18:54 02/18/18 18:54 Constitutional: no apparent distress, chronically ill appearing, unkempt Eyes: PERRL, anicteric sclera Ears, Nose, Mouth, Throat: moist mucous membranes, poor dentition Cardiovascular: regular rate and rhythym, no murmur, rub, or gallop, No edema Respiratory: no respiratory distress, reduced air movement Gastrointestinal: normoactive bowel sounds, soft, non-tender abdomen Genitourinary: no bladder tenderness Skin: warm, normal color Musculoskeletal: joint tenderness, pain with ROM, generalized weakness Neurologic: AAOx3, weakness (right bottle capping machine operator weakness) Psychiatric: interacting appropriately, not anxious, not encephalopathic Lab Data & Imaging Review 02/18/18 17:50 WBC 8.00 10^3/uL (3.80-9.50) 02/18/18 17:50 RBC 3.95 10^6/uL (4.40-6.38) L 02/18/18 17:50 Hgb 11.3 g/dL (13.7-17.5) L 02/18/18 17:50 POC Hgb 12.6 gm/dL (13.7-17.5) L 02/18/18 17:53 Hct 37.7 % (40.0-51.0) L 02/18/18 17:50 POC Hct 37 % (40-51) L 02/18/18 17:53 MCV 95.4 fL (81.5-99.8) 02/18/18 17:50 MCH 28.6 pg (27.9-34.1) 02/18/18 17:50 MCHC 30.0 g/dL (32.4-36.7) L 02/18/18 17:50 RDW 14.2 % (11.5-15.2) 02/18/18 17:50 Plt Count 198 10^3/uL (150-400) 02/18/18 17:50 MPV 10.5 fL (8.7-11.7) 02/18/18 17:50 Neut % (Auto) 67.2 % (39.3-74.2) 02/18/18 17:50 Lymph % (Auto) 22.6 % (15.0-45.0) 02/18/18 17:50 [place] % (Auto) 8.0 % (4.5-13.0) 02/18/18 17:50 Eos % (Auto) 1.8 % (0.6-7.6) 02/18/18 17:50 Baso % (Auto) 0.1 % (0.3-1.7) L 02/18/18 17:50 Nucleat RBC Rel Count 0.0 % (0.0-0.2) 02/18/18 17:50 Absolute Neuts (auto) 5.38 10^3/uL (1.70-6.50) 02/18/18 17:50 Absolute Lymphs (auto) 1.81 10^3/uL (1.00-3.00) 02/18/18 17:50 Absolute Monos (auto) 0.64 10^3/uL (0.30-0.80) 02/18/18 17:50 Absolute Eos (auto) 0.14 10^3/uL (0.03-0.40) 02/18/18 17:50 Absolute Basos (auto) 0.01 10^3/uL (0.02-0.10) L 02/18/18 17:50 Absolute Nucleated RBC 0.00 10^3/uL (0-0.01) 02/18/18 17:50 Immature Gran % 0.3 % (0.0-1.1) 02/18/18 17:50 Immature Gran # 0.02 10^3/uL (0.00-0.10) 02/18/18 17:50 ESR 41 MM/HR (0-20) H 02/18/18 17:50 POC Sodium 144 mEq/L (135-145) 02/18/18 17:53 POC Potassium 4.0 mEq/L (3.3-5.0) 02/18/18 17:53 POC Chloride 98 mEq/L (97-110) 02/18/18 17:53 POC BUN 18 mg/dL (7-23) 02/18/18 17:53 POC Creatinine 0.7 mg/dL (0.7-1.3) 02/18/18 17:53 POC Glucose 89 mg/dL (70-100) 02/18/18 17:53 Uric Acid 2.9 mg/dL (3.5-8.5) L 02/18/18 17:50 C-Reactive Protein 20.6 mg/L (<10.0) H 02/18/18 17:50 Visualized and Interpreted EKG results: Yes EKG Interpretation: Positive for: normal sinsus rhythm Assessment & Plan Assessment: Right hand weakness (Acute) Right hand pain (Acute) 87 yo M with PMH that includes multiple back and neck surgeries and resultant severe kyphosis presenting with c/o several days of right hand and wrist weakness and pain # right hand weakness: significantly 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 There is associated pain and some minimal erythema over the first mcp with elevated esr/crp so possibly some kind of inflammatory arthritis but also concerning for stroke. CT head/CTA head/neck attempted but patient unable to lie flat and this study was not able to be performed--has not tolerated ct or MRI in the past. Will ask for neurology to evaluate in am. Will get xray of hand/wrist. # gait instability: due to right hand weakness in setting of being dependent on walker to ambulate, pt/ot to evaluate, patient lives independently at the [place] with his whom he notes has worsening dementia # copd with chronic hypoxia and o2 dependence: patient states he has been feeling a bit more sob on and off recently, breath sounds diminished but moving air, o2 needs at baseline, will get portable cxr for further evaluation # sacral decub prior to admission: noted on notes from PCPs office, was not able to evaluate due to patients limited mobility, will ask wound care to evaluate in am # chronic pain: due to multiple neck and back surgeries, was previously on chronic opiates but has been discontinued on these due to encephalopathy # bph: continue tamsulosin # DNR # IP status--given multiple active comorbid conditions and inability to ambulate safely will likely require > 48 hours stay for eval/mgmt of above Patient new to my care. Old records reviewed/summarized as above. Care plan reviewed with ER doctor including plans for neurology consult.
[2018-02-18] MEDS ORDERED: HYDROmorphONE/DILAUDID 1 MG/ML INJ IVP PRN (19:49)
[2018-02-18] MEDS ORDERED: HYDROCODONE/APAP 5/325 TAB PO PRN (19:49)
[2018-02-18] MEDS ORDERED: oxyCODONE IR 5 MG TAB PO PRN (19:49)
[2018-02-18] MEDS ORDERED: ONDANSETRON DISINTEGRATING 4 MG TAB PO PRN (19:49)
[2018-02-18] MEDS ORDERED: PROMETHAZINE HCL 25 MG/ML INJ IVP PRN (19:49)
[2018-02-18] MEDS ORDERED: ACETAMINOPHEN 325 MG TAB PO PRN (19:49)
[2018-02-18] MEDS ORDERED: ONDANSETRON 4 MG/2 ML VIAL IVP PRN (19:49)
[2018-02-18] MEDS ORDERED: traMADol 50 MG TAB PO PRN (19:51)
[2018-02-18] MEDS ORDERED: SENNOSIDES/DOCUSATE SODIUM TAB PO PRN (19:51)
[2018-02-18] MEDS: hydrALAZINE 20 MG/ML VIAL IVP PRN (20:34)
[2018-02-18] MEDS: MIRTAZAPINE 15 MG TAB PO SCH (21:46)
[2018-02-18] MEDS: PREGABALIN 150 MG CAP PO SCH (21:46)
[2018-02-19] MEDS ORDERED: OXYMETAZOLINE 30 ML NASAL SPRAY EACHNARE PRN (01:34)
[2018-02-19] MEDS ORDERED: guaiFENesin 600 MG TAB.ER PO PRN (01:35)
[2018-02-19] MEDS: SODIUM CL NASAL 45 ML BTL EACHNARE PRN ×3 (04:26→15:45)
[2018-02-19] MEDS: ALBUTEROL 3 ML DEYVIAL IH PRN ×2 (05:02→10:24)
[2018-02-19 05:20] LABS: PLATELET COUNT 174 10^3/uL (150-400)
[2018-02-19] MEDS: TAMSULOSIN HCL 0.4 MG CAP PO SCH (10:03)
[2018-02-19] MEDS: PREGABALIN 150 MG CAP PO SCH ×2 (10:03→20:30)
[2018-02-19] MEDS: PANTOPRAZOLE SODIUM 40 MG TAB PO SCH (10:03)
[2018-02-19] MEDS: MULTIVITAMINS 1 EACH TAB PO SCH (10:03)
[2018-02-19] MEDS: VITAMIN B COMPLEX 1 EA CAP/TAB PO SCH (10:03)
[2018-02-19] MEDS: POTASSIUM CL 10 MEQ TAB PO SCH (10:03)
[2018-02-19] MEDS: FERROUS SULFATE 325 MG TAB PO SCH (10:03)
--- NOTE | 2018-02-19 10:24 | WOCRNPDOC ---
WOCRN Advanced Assessment Note - Skin Integrity Problem, Advanced Assess Bilateral Lower Medial Leg Dressing Type: Open to Air Karishma Wound Tissue: Hemosiderin Staining, Venous Dermatitis, Xerotic Skin Integrity Problem Comment: No open wounds. OK to moisturize with Atractain cream. Elevate legs as much as possible. Patient reports "they have been like that forever". Wound care will sign off. Janis BENITO in room for assessment.
--- NOTE | 2018-02-19 11:44 | HOSPPROG ---
Hospitalist Progress Note Assessment/Plan: DIAGNOSES: # right hand weakness: I agree with Dr. Nielson that the exam is most consistent with a peripheral neurologic issue though hard to localize. It appears to me that there is involvement of both median and ulnar nerve but all distal to the wrist which would seem somewhat unlikely. I would agree it is reasonable to use aspirin and statin for the moment, in the less likely event of a central lesion causing this. Will need to work with hand therapy # right thumb pain is due to arthritis by my exam and by his x-rays; I think this is a separate issue from the weakness # gait instability: due to right hand weakness in setting of being dependent on walker to ambulate, pt/ot to evaluate, patient lives independently at the [place] with his whom he notes has worsening dementia # copd with chronic hypoxia and o2 dependence: Appears very close to baseline # sacral decub prior to admission: No open wounds a this time per wound care nurse exam but preventive measures indicated # chronic pain: due to multiple neck and back surgeries, was previously on chronic opiates but has been discontinued on these due to encephalopathy # bph: continue tamsulosin # DNR per patient's request # IP status--given multiple active comorbid conditions and inability to ambulate safely will likely require > 48 hours stay for eval/mgmt of above Patient new to my care. PLANS: * Daily statin and aspirin therapy * Will image carotid arteries with ultrasound as he will not tolerate CT scanning * Occupational therapy for his hand and mobility issues, physical therapy as well * Will use Celebrex and Aspercreme for his thumb pain at this time * DVT prophylaxis * Continue usual care for his COPD but follow closely I reviewed with Dr. Maxx Nielson. SUBJECTIVE: Still having pain at right thumb particularly with any movement or palpation Still having numbness and loss of sensation throughout the digits of the right hand but not proximal to that OBJECTIVE Vitals reviewed: Blood pressure is much better today, otherwise normal without fever Cheese Sprayer, my review: Sinus Exam: alert oriented relaxed Neuro exam: He has good strength for motion of the right shoulder elbow and wrist in all ranges of motion, however has minimal strength in the fingers of the right hand. He has sensation in the fingers of the right hand but subjectively it is somewhat decreased compared to left hand. limbs: The right thumb has degenerative changes at the PIP joint with pain with tenderness in active or passive motion, however there are no inflammatory findings. I reviewed the x-rays which show significant degenerative change there but no fracture or signs of infection skin warm dry color ok resps not labored lungs clear BSs heart regular abd soft nondistended nontender, bowel sounds present iv site ok Laboratory data: Hemoglobin is decreased slightly at 10.5 compared to yesterday, still with borderline high CV CO2 slightly high on his met panel at 33 C reactive protein slightly high I reviewed x-rays of his right hand which show severe degenerative changes at the joints in his thumb otherwise unremarkable I reviewed his chest x-ray and compared with old chest x-rays and CTs. There may be if anything slight progression of his pleural disease compared to the past but little change overall. The left hemidiaphragm is elevated more than it previously was Objective: Vital Signs Temp Pulse Resp BP Pulse Ox 36.7 C 93 20 140/69 H 95 02/19/18 07:44 02/19/18 10:24 02/19/18 10:24 02/19/18 08:25 02/19/18 10:24 Laboratory Results 02/19/18 04:43 02/19/18 04:43 02/18/18 02/19/18 02/20/18 06:59 06:59 06:59 Intake Total 100 Balance 100 ICD10 Worksheet Patient Problems: Problems Problem Status Onset Right hand pain Acute Right hand weakness Acute Abdominal pain Acute Altered mental status Acute Hypercalcemia Acute Hypokalemia Acute Lung mass Acute MRSA (methicillin resistant Staphylococcus aureus) Acute ~09/01/16 Weakness Acute
--- NOTE | 2018-02-19 12:22 | NEUROPROG ---
Assessment: HOSPITAL NEUROLOGY CONSULT REQUESTING: Ian Sabillon MD REASON: hand weakness HPI: 87 year old man admitted with 3 days of right hand weakness and pain. States his right thumb no longer mves and it is painful. Also having difficulty with finger flexion more than extension, but no pain in the rest of the digits or wrist. He has a known history of cervical spine disease. Vascular risk of HTN. Denies any other weakness. No sensory loss. Has chronic gait instability and uses a walker, but can't use it well with the right hand weakness. He is unable to have a CT due to poor positioning from severe kyphosis and he cannot tolerate MRI and refuses. ROS: As per the HPI, otherwise a complete 12 point ROS was performed and is negative ALLERGIES AND MEDS: As recorded in the EMR - reviewed and reconciled PFSH: As per the intake H&P by Dr. Bailey from yesterday EXAM: VS reviewed in EMR GEN: WDWN laying in NAD HEENT: NCAT, sclera anicteric, conjunctiva not injected, MMM, oropharynx clear, no scalp tenderness NECK: supple, nontender, no meningismus CV: RRR s1 s2 wo m/r/c/g. Carotid pulses 2+ wo bruit MSK: no joint swelling or tenderness NEURO: MS: awake, alert, oriented to all spheres. Speech nondysarthric. No language disturbance. Follows commands. Attends to both sides. Recent/remote memory grossly intact. Mood euthymic. Good fund of knowledge. CN: pupils 3mm round and reactive. Unable to visualize. VFF. Primary gaze centered. Restricted vertical gaze. Facial sensation preserved. Face symmetric. Hearing grossly intact to finger rub. Palatoglossal movements intact. Shoulder shrug and head turn strong. MOTOR: reduced bulk throughout. Loss on tone in the right hand. Has good wrist extension power, mild wrist flexion weakness. Thumb does not move at all. Finger extensors 3/5, finger flexors only trace. Has 3/5 intrinsic hand muscle strength. SENSORY: symmetric/intact LT/PP. No extinction. COORD: no ataxia FN/HS. REFLEX: plantars mute. No clonus. Absent DTRs throughout. GAIT: deferred for safety DATA REVIEW: Labs reviewed in EMR PERSONALLY INTERPRETED RESULTS AND DATA: Nil IMPRESSION AND RECOMMENDATIONS: Pattern of weakness is not typical of an [facility] pattern, but still cannot rule out focal cortical embolization to the left precentral knob. Exam does seem more peripheral, though. He cannot tolerate any imaging. Would be reasonable to check carotid Doppler and TTE for embolic source. Also start ASA and statin. If the TTE and carotid study is unremarkable, then would continue PT/OT and get EMG in our clinic in 3-4 weeks for a peripheral evaluation - if a peripheral source identified then could stop ASA/statin at that time. Objective: Vital Signs Temp Pulse Resp BP Pulse Ox 36.7 C 93 20 140/69 H 95 02/19/18 07:44 02/19/18 10:24 02/19/18 10:24 02/19/18 08:25 02/19/18 10:24 Laboratory Results 02/19/18 04:43 02/19/18 04:43 02/18/18 02/19/18 02/20/18 05:59 05:59 05:59 Intake Total 100 Balance 100 Allergies/Adverse Reactions: No Known Allergies Allergy (Verified 09/01/16 15:34)
--- NOTE | 2018-02-19 12:41 | ASMTCMCOM ---
CM Note CM Note Notes: Reviewed chart for d/c planning purposes. Patient lives with at the [place]. Admitted for pain/weakness. Still awaiting physical therapy input - OT recommending SNF. On patient's last admission in 2016, d/c'd with [facility]. Patient may benefit from SNF stay up on d/c. WIll follow-up when able. Plan: TBD - Potentially SNF. Date Signed: 02/19/2018 12:40 PM Electronically Signed By:Deepa Reagan RN
[2018-02-19] MEDS: TROLAMINE SALICYLATE 85 GM CRTUBE TP SCH ×2 (15:45→20:31)
[2018-02-19] MEDS: MIRTAZAPINE 15 MG TAB PO SCH (20:30)
--- NOTE | 2018-02-19 21:23 | PDMN ---
Medical Necessity Medical necessity: Pt meets INPT criteria per MD as of02/19/18 and [facility] (est. LOS >2 MN for eval/mgmt of R hand weakness, R thumb pain, gait instability with inability to ambulate safely; comorbid COPD with chronic hypoxia and O2 dependence, chronic pain).
[2018-02-19] MEDS: hydrALAZINE 20 MG/ML VIAL IVP PRN (23:17)
[2018-02-20] MEDS ORDERED: CYCLOBENZAPRINE 10 MG TAB PO PRN (01:12)
[2018-02-20] MEDS: TAMSULOSIN HCL 0.4 MG CAP PO SCH (10:06)
[2018-02-20] MEDS: ATORVASTATIN CALCIUM 10 MG TAB PO SCH (10:07)
[2018-02-20] MEDS: VITAMIN B COMPLEX 1 EA CAP/TAB PO SCH (10:07)
[2018-02-20] MEDS: POTASSIUM CL 10 MEQ TAB PO SCH (10:07)
[2018-02-20] MEDS: ASPIRIN EC 81 MG TAB PO SCH (10:08)
[2018-02-20] MEDS: FERROUS SULFATE 325 MG TAB PO SCH (10:08)
[2018-02-20] MEDS: PANTOPRAZOLE SODIUM 40 MG TAB PO SCH (10:08)
[2018-02-20] MEDS: PREGABALIN 150 MG CAP PO SCH ×2 (10:08→21:51)
[2018-02-20] MEDS: MULTIVITAMINS 1 EACH TAB PO SCH (10:08)
--- NOTE | 2018-02-20 11:34 | HOSPPROG ---
Hospitalist Progress Note Assessment/Plan: DIAGNOSES: # right hand weakness and decreased sensation in the fingers 2 through 4: * Etiology uncertain but it is resolving fairly quickly * ? If peripheral nerve entrapment or somehow related to his thumb arthritis; doubt central etiology but he is unable to comply with brain imaging # right thumb arthritis with acute pain * Much better with NSAIDs overnight # gait instability: due to right hand weakness in setting of being dependent on walker to ambulate, pt/ot to evaluate, patient lives independently at the [place] with his whom he notes has worsening dementia # worsening chronic respiratory failure with evidence of right-sided CHF by exam and probably left-sided CHF on chest x-ray: (Note that prior progress notes here mention COPD but he has never been diagnosed with this and CT chest in July of this year shows no emphysema); is on chronic home oxygen but states he has never been told why he needs it * Most recent echo shows only diastolic dysfunction * 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 due to his spine illness and pleural abnormalities * Further assessment indicated so that this can be properly managed moving forward # sacral decub prior to admission: No open wounds a this time per wound care nurse exam but preventive measures indicated # chronic pain: due to multiple neck and back surgeries, * Stable off of analgesics at this time # bph: continue tamsulosin # DNR per patient's request PLANS: * Daily statin and aspirin therapy due to his hand weakness uncertain etiology and carotid artery disease * Occupational therapy for his hand and mobility issues, physical therapy as well * Continue Celebrex and Aspercreme for his thumb pain at this time * Will repeat echocardiogram at this time to assess LV function and valvular function and pulmonary pressures - pending at present will review when it is done * PFTs which I expect will show significant restrictive defect but look for any other abnormalities * Begin Lasix, follow I&O and potassium * DVT prophylaxis * Will need ongoing hospital care until he is safe for ambulation on his feet with a walker which will hopefully happen fairly soon as his hand is getting better * Will need outpatient follow-up for his respiratory/cardiac issues SUBJECTIVE: Pain in his right thumb remarkably increased today compared to yesterday with addition of Celebrex and Aspercreme Notices some improvement in strength in his right hand fingers compared to yesterday with better range of motion Raises again concern about the fact that he is chronic dyspnea has been getting worse over period of 3 months or more. In fact he tells me now that he has obtained and electric scooter because he was having trouble walking from his apartment to the dining room at his assisted living complex. He has not noticed chest pain or cough or leg pain. He is a former cigar smoker, has chronic oxygen use at home. In questioning him and reviewing his chart, there is no diagnosis of COPD, has a previous diagnosis of pleural effusion and some chronic pleural thickening in the left on chest x-rays. Echocardiograms showed diastolic dysfunction without other concerning changes, but we have never had to treat him for congestive heart failure here and he is on no cardiac medicines for this. 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 He has sensation in the fingers of the right hand but subjectively it is somewhat decreased compared to left hand. limbs: The right thumb has degenerative changes at the PIP joint with pain with tenderness in active or passive motion, however there are no inflammatory findings. I reviewed the x-rays which show significant degenerative change there but no fracture or signs of infection skin warm dry color ok resps not labored lungs clear BSs heart regular abd soft nondistended nontender, bowel sounds present iv site ok I reviewed his Doppler ultrasound studies and he has moderate 50-69% right carotid stenosis, less than 50% on the left Again today reviewed his current chest x-ray and his previous chest x-rays and CT scans. Notably at this point I do believe he has evidence of some pulmonary edema on his current chest x-ray which was not present previously. Also notable is that he does not have any evidence of emphysema on his CT scans Objective: Vital Signs Temp Pulse Resp BP Pulse Ox 36.8 C 95 16 143/80 H 93 02/20/18 08:00 02/20/18 08:00 02/20/18 08:00 02/20/18 08:00 02/20/18 08:00 - Time Spent With Patient Time Spent with Patient: greater than 35 minutes Time Spent with Patient: Greater than 35 minutes spent on this patients care, greater than 50% of time spent counseling, educating, and coordinating care regarding the above mentioned plan. ICD10 Worksheet Patient Problems: Problems Problem Status Onset Right hand pain Acute Right hand weakness Acute Abdominal pain Acute Altered mental status Acute Hypercalcemia Acute Hypokalemia Acute Lung mass Acute MRSA (methicillin resistant Staphylococcus aureus) Acute ~09/01/16 Weakness Acute
[2018-02-20] MEDS ORDERED: FUROSEMIDE 20 MG TAB PO ONE (12:09)
[2018-02-20] MEDS: TROLAMINE SALICYLATE 85 GM CRTUBE TP SCH ×3 (12:13→21:56)
--- NOTE | 2018-02-20 12:36 | NEUROPROG ---
Assessment: BACKGROUND: 02/19 87 year old man admitted with 3 days of right hand weakness and pain. States his right thumb no longer mves and it is painful. Also having difficulty with finger flexion more than extension, but no pain in the rest of the digits or wrist. He has a known history of cervical spine disease. Vascular risk of HTN. Denies any other weakness. No sensory loss. Has chronic gait instability and uses a walker, but can't use it well with the right hand weakness. He is unable to have a CT due to poor positioning from severe kyphosis and he cannot tolerate MRI and refuses. INTERVAL HISTORY: Feel his right hand is a little stronger. Pain in thumb gone and can now move the right thumb. EXAM: VS reviewed in EMR MSK: no joint swelling or tenderness NEURO: MS: awake, alert, oriented to all spheres. Speech nondysarthric. No language disturbance. Follows commands. Attends to both sides. CN: pupils 3mm round and reactive. VFF. Primary gaze centered. Restricted vertical gaze. Facial sensation preserved. Face symmetric. Hearing grossly intact to finger rub. Palatoglossal movements intact. Shoulder shrug and head turn strong. MOTOR: reduced bulk throughout. Better tone in right hand. Has full wrist extension/flexion power. Thumb now with some mild movement, but still weak. Finger extensors 4/5, finger flexors 4/5. Has 3+/5 intrinsic hand muscle strength. SENSORY: symmetric/intact LT/PP. No extinction. COORD: no ataxia FN/HS. REFLEX: plantars mute. No clonus. Absent DTRs throughout. GAIT: deferred for safety DATA REVIEW: Labs reviewed in EMR PERSONALLY INTERPRETED RESULTS AND DATA: Carotid Doppler - 50-69% stenosis CANDICE, less than 50% stenosis LICA TTE pending results IMPRESSION AND RECOMMENDATIONS: Pattern of weakness is not typical of an UMN pattern, but still cannot rule out focal cortical embolization to the left precentral knob. Exam does seem more peripheral, though. He cannot tolerate any imaging. He is improving, which is encouraging. Carotid Doppler without any significant LICA stenosis. Has CANDICE stenosis upwards of 69%, so reasonable to continue ASA/statin indefinitely. Continue PT/ OT. Get EMG in our clinic in 3-4 weeks for a peripheral evaluation. If TTE returns unremarkable today, then can discharge. Objective: Vital Signs Temp Pulse Resp BP Pulse Ox 36.7 C 94 16 148/77 H 96 02/20/18 11:38 02/20/18 11:38 02/20/18 11:38 02/20/18 11:38 02/20/18 11:38 Allergies/Adverse Reactions: No Known Allergies Allergy (Verified 09/01/16 15:34)
--- NOTE | 2018-02-20 12:36 | ECHO ---
[email or web address] [address] [address] Main: [phone] Fax: Transthoracic Echocardiogram Name: BLANCA FONSECA MR#: [id number] Study Date: 02/20/2018 Study Time: 10:51 AM Date of : 1930 Age: 87 year(s) Height: 182.9 cm (72 in.) Weight: 61.24 kg (135 lb.) BSA: 1.8 m2 Gender: Male Examination: Echo Indication: right hand weakness Image Quality: Adequate Contrast: Requested by: Maxx Nielson BP: / Heart Rate: Rhythm: Indication: right hand weakness Procedure Staff Otorhinolaryngologist: Natalie Millan [facility] Reading Physician: Mars Lord MD Requesting Provider: Conclusions: Normal size left ventricle. Concentric LV hypertrophy. Normal global systolic LV function. The ejection fraction is estimated to be 65-70 %. No regional wall motion abnormality. Grade 2 diastolic dysfunction (pseudonormalized LV filling pattern). Normal size right ventricle. Normal RV function. The left atrium is mildly dilated. The right atrium is normal in size. The mitral valve is normal in appearance and function. Mild mitral annular calcification. Mild mitral valve regurgitation is present. No mitral stenosis is present. The aortic valve is tri-leaflet. Aortic sclerosis is present. There is no significant aortic valve regurgitation. No aortic valve stenosis is present. The tricuspid valve is normal in appearance and function. Trivial tricuspid valve regurgitation. The pulmonic valve is normal in appearance and function. Mild pulmonic valve regurgitation is noted. The aorta is normal. Normal size aortic root measuring 3.1 cm. Normal size ascending aorta measuring 2.9 cm. Small pericardial effusion. A cause for the patient's right hand weakness is not identified on hte basis of this study. That is there is no evidence of a cardiac source of embolus. If a cardiac source of embolus is strongly suspected a NIECY could be considered. Patient: BLANCA FONSECA Study Date: 02/20/2018 Page 1 of 3 10:51 AM Measurements: Chambers Valvular Assessment AV/MV Valvular Assessment TV/PV Normal Normal Normal Name Value Range Name Value Range Name Value Range Ao Juliet (2D): 3.1 cm (1.4 cm-2.6 AV Vmax: 1.79 m/s (1 m/s-1.7 PV Vmax: 1.11 m/s (0.6 m/s-0.9 cm) m/s) m/s) IVSd (2D): 2.2 cm (0.6 cm-1.1 AV maxP mmHg ( - ) PV PGmax: 5 mmHg ( - ) cm) AV meanP mmHg ( - ) LVDd (2D): 3.9 cm (4.2 cm-5.9 CHRIS (VTI): 1.9 cm ( - ) cm) MV E Vmax: 0.84 m/s ( - ) LVDs (2D): 3.0 cm (2.1 cm-4 MV A Vmax: 1.25 m/s ( - ) cm) MV E/A: 0.67 ( - ) LVPWd (2D): 1.6 cm (0.6 cm-1 cm) MV meanP mmHg ( - ) LVOTd 2.0 cm 2.0 cm mm MV PHT: 0.040 s ( - ) LVEF (BP): 63 % (>=55 %) MVA (Vmax): 3.0 m/s ( - ) EF Range: 65-70 % MVA (PHT): 5.5 s ( - ) RVDd(2D): 3.1 cm (1.9 cm-3.8 cmmm) Continued Measurements: Chambers Valvular Assessment AV/MV Name Value Name Value LADs: 3.9 cm MV DecTime: 141 m/s LADs Lon.1 cm MV E' Septal: 0.06 m/s LA Area: 20.7 cm2 MV E/E' Septal: 15.10 LA Volume: 65 ml MV E/E' Lateral: 17.90 LA Volume Index: 36.1 ml/m2 MV VTI: 24.80 cm RA Area: 16.3 cm2 Additional Vessels Name Value Ao Ascendin.9 cm Findings: Left Ventricle: Normal size left ventricle. Concentric LV hypertrophy. Normal global systolic LV function. The ejection fraction is estimated to be 65-70 %. No regional wall motion abnormality. Grade 2 diastolic dysfunction (pseudonormalized LV filling pattern). Right Ventricle: Normal size right ventricle. Normal RV function. Left Atrium: The left atrium is mildly dilated. Right Atrium: The right atrium is normal in size. Mitral Valve: The mitral valve is normal in appearance and function. Mild mitral annular calcification. Mild mitral valve regurgitation is present. No mitral stenosis is present. Aortic Valve: The aortic valve is tri-leaflet. Aortic sclerosis is present. There is no significant aortic valve regurgitation. No aortic valve stenosis is present. Tricuspid Valve: The tricuspid valve is normal in appearance and function. Trivial tricuspid valve regurgitation. Pulmonic Valve: The pulmonic valve is normal in appearance and function. Mild pulmonic valve regurgitation is noted. Aorta: The aorta is normal. Normal size aortic root measuring 3.1 cm. Normal size ascending aorta Patient: BLANCA FONSECA Study Date: 02/20/2018 Page 2 of 3 10:51 AM measuring 2.9 cm. IVC: Subcostal not well visualized. Pericardium: Small pericardial effusion. (No Signature Object) Patient: BLANCA FONSECA Study Date: 02/20/2018 Page 3 of 3 10:51 AM [id number]
[2018-02-20] MEDS: MIRTAZAPINE 15 MG TAB PO SCH (21:51)
[2018-02-21] MEDS ORDERED: FUROSEMIDE 20 MG TAB PO SCH (09:00)
--- NOTE | 2018-02-21 09:32 | NEUROPROG ---
Assessment: BACKGROUND: 02/19 87 year old man admitted with 3 days of right hand weakness and pain. States his right thumb no longer mves and it is painful. Also having difficulty with finger flexion more than extension, but no pain in the rest of the digits or wrist. He has a known history of cervical spine disease. Vascular risk of HTN. Denies any other weakness. No sensory loss. Has chronic gait instability and uses a walker, but can't use it well with the right hand weakness. He is unable to have a CT due to poor positioning from severe kyphosis and he cannot tolerate MRI and refuses. INTERVAL HISTORY: Feels right hand improved from admission, but no improvement since yesterday. Still no thumb pain today. EXAM: VS reviewed in EMR MSK: no joint swelling or tenderness NEURO: MS: awake, alert, oriented to all spheres. Speech nondysarthric. No language disturbance. Follows commands. Attends to both sides. CN: pupils 3mm round and reactive. VFF. Primary gaze centered. Restricted vertical gaze. Facial sensation preserved. Face symmetric. Hearing grossly intact to finger rub. Palatoglossal movements intact. Shoulder shrug and head turn strong. MOTOR: reduced bulk throughout. Better tone in right hand. Has full wrist extension/flexion power. Thumb now with some mild movement, but still weak. Finger extensors 4/5, finger flexors 4/5. Has 3+/5 intrinsic hand muscle strength. SENSORY: symmetric/intact LT/PP. No extinction. COORD: no ataxia FN/HS. REFLEX: plantars mute. No clonus. Absent DTRs throughout. GAIT: deferred for safety DATA REVIEW: Labs reviewed in EMR PERSONALLY INTERPRETED RESULTS AND DATA: Carotid Doppler - 50-69% stenosis CANDICE, less than 50% stenosis LICA TTE prserved EF, no mass/shunt/valve veg IMPRESSION AND RECOMMENDATIONS: Pattern of weakness is not typical of an UMN pattern, but still cannot rule out focal cortical embolization to the left precentral knob. Exam does seem more peripheral, though. He cannot tolerate any imaging. He is improving, which is encouraging. Carotid Doppler without any significant LICA stenosis. Has CANDICE stenosis upwards of 69%, so reasonable to continue ASA/statin indefinitely. Continue PT/ OT. Get EMG in our clinic in 3-4 weeks for a peripheral evaluation. Sign off. Objective: Vital Signs Temp Pulse Resp BP Pulse Ox 36.6 C 99 16 139/78 H 94 02/21/18 08:43 02/21/18 08:43 02/21/18 08:43 02/21/18 08:43 02/21/18 08:43 02/20/18 02/21/18 02/22/18 05:59 05:59 05:59 Intake Total 312 Output Total 900 Balance -588 Allergies/Adverse Reactions: No Known Allergies Allergy (Verified 09/01/16 15:34)
[2018-02-21] MEDS: ASPIRIN EC 81 MG TAB PO SCH (10:12)
[2018-02-21] MEDS: FERROUS SULFATE 325 MG TAB PO SCH (10:13)
[2018-02-21] MEDS: ATORVASTATIN CALCIUM 10 MG TAB PO SCH (10:13)
[2018-02-21] MEDS: PANTOPRAZOLE SODIUM 40 MG TAB PO SCH (10:13)
[2018-02-21] MEDS: MULTIVITAMINS 1 EACH TAB PO SCH (10:13)
[2018-02-21] MEDS: TAMSULOSIN HCL 0.4 MG CAP PO SCH (10:14)
[2018-02-21] MEDS: TROLAMINE SALICYLATE 85 GM CRTUBE TP SCH ×3 (10:14→21:05)
[2018-02-21] MEDS: POTASSIUM CL 10 MEQ TAB PO SCH (10:14)
[2018-02-21] MEDS: VITAMIN B COMPLEX 1 EA CAP/TAB PO SCH (10:14)
[2018-02-21] MEDS: PREGABALIN 150 MG CAP PO SCH ×2 (10:14→21:05)
--- NOTE | 2018-02-21 14:10 | HOSPPROG ---
Hospitalist Progress Note Assessment/Plan: DIAGNOSES: # right hand weakness and decreased sensation in the fingers 2 through 4: * Etiology uncertain but it is improving; still however has fairly weak pulp mixer * ? 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 due to his spine illness and pleural abnormalities * will recheck CXR today # sacral decub prior to admission: No open wounds a this time per wound care nurse exam but preventive measures indicated # severe generalized weakness/deconditioning/gait instability * 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, and with his dominant hand acutely weakened has very high fall risk # chronic pain: due to multiple neck and back surgeries, * Stable off of analgesics at this time # bph: continue tamsulosin # DNR per patient's request PLANS: * Daily statin and aspirin therapy due to his hand weakness uncertain etiology and carotid artery disease * Occupational therapy for his hand and mobility issues, physical therapy as well; will need SNF at d/c which I discussed with him at length today * Continue Celebrex and Aspercreme for his thumb pain at this time * recheck CXR to see if it looks any better but given echo findings further diuresis not likely of much benefit at present * stop diuresis at this time * recheck renal fxn and K in am * DVT prophylaxis * likely stable for DC to SNF tomorrow SUBJECTIVE: Pain in thumb is still resolved w NSAIDs strength in R hand/fingers better but still weak enough his is dropping small obects extreme generalized weakness (required 2 person assist to get from chair to bed 3 feet) eating ok OBJECTIVE Vitals reviewed: mild intermittent HTN, otherwise normal without fever 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, 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: Sinus Exam: alert oriented relaxed Neuro exam: the R hand and fingers now have nearly full active ROM but R hand pulp mixer is quite weak, thumb no longer tender resps not labored lungs clear BSs though very diminished heart regular abd soft nondistended nontender, bowel sounds present iv site ok Objective: Vital Signs Temp Pulse Resp BP Pulse Ox 36.7 C 94 16 143/76 H 97 02/21/18 11:52 02/21/18 11:52 02/21/18 11:52 02/21/18 11:52 02/21/18 11:52 02/20/18 02/21/18 02/22/18 06:59 06:59 06:59 Intake Total 312 Output Total 900 Balance -588 ICD10 Worksheet Patient Problems: Problems Problem Status Onset Right hand pain Acute Right hand weakness Acute Abdominal pain Acute Altered mental status Acute Hypercalcemia Acute Hypokalemia Acute Lung mass Acute MRSA (methicillin resistant Staphylococcus aureus) Acute ~09/01/16 Weakness Acute
--- NOTE | 2018-02-21 16:05 | ASMTCMCOM ---
CM Note CM Note Notes: PT/OT rec SNF, pt reports he has been to [facility] and would like a referral there. Pt also discusses hiring 24/hr care to get home, which the OT and PT were updated on. At the end of the day this CM met w pt to complete PASRR, pt does not know for what diagnosis/how long he has been on Remeron. Pt is accepted at [facility] and by the end of the day pt is not ready to make a decision about where to d/c. Pt reports his son is local, this CM did not have a chance to call son as pt needs further support if he is going to hire help at home. CM to follow. Date Signed: 02/21/2018 04:04 PM Electronically Signed By:GRADY Gilliam
[2018-02-21] MEDS: MIRTAZAPINE 15 MG TAB PO SCH (21:05)
[2018-02-22 08:22] VITALS: BP 150/77
[2018-02-22] MEDS: PREGABALIN 150 MG CAP PO SCH (10:38)
[2018-02-22] MEDS: POTASSIUM CL 10 MEQ TAB PO SCH (10:38)
[2018-02-22] MEDS: MULTIVITAMINS 1 EACH TAB PO SCH (10:38)
[2018-02-22] MEDS: TAMSULOSIN HCL 0.4 MG CAP PO SCH (10:38)
[2018-02-22] MEDS: FERROUS SULFATE 325 MG TAB PO SCH (10:38)
[2018-02-22] MEDS: VITAMIN B COMPLEX 1 EA CAP/TAB PO SCH (10:38)
[2018-02-22] MEDS: ATORVASTATIN CALCIUM 10 MG TAB PO SCH (10:38)
[2018-02-22] MEDS: ASPIRIN EC 81 MG TAB PO SCH (10:38)
[2018-02-22] MEDS: PANTOPRAZOLE SODIUM 40 MG TAB PO SCH (10:38)
[2018-02-22] MEDS: TROLAMINE SALICYLATE 85 GM CRTUBE TP SCH (10:42)
--- NOTE | 2018-02-22 10:56 | PDIAF ---
- Diagnosis Diagnosis: Right hand weakness, arthritis right thumb, weakness gait instability Code Status: Do Not Resuscitate - Medication Management Discharge Medications: electronically signed and located in the Home Medication List. - Orders Services needed: Registered Nurse, Certified Leather Production Machine Operator, Master Front End Specialist , Physical Therapy, Occupational Therapy (With particular attention to new weakness and right hand which is improving but interfering with mobility and safety) Isolation Type: None Diet Recommendation: sodium restricted Diet Texture: Regular Texture Diet Activity/Weight Bearing Restrictions: Full weight-bearing. Very high fall risk so fall risk precautions needed Equipment: Walker - Follow Up Care Current Providers and Referrals: Patient,NotPresent [Unknown] - As per Instructions
--- NOTE | 2018-02-22 11:05 | PDDCSUM ---
Discharge Summary Discharge Summary: DISCHARGE DIAGNOSES: * right hand weakness, new onset uncertain etiology * acute painful arthropathy of right thumb * severe generalized deconditioning, generalized weakness, gait instability * chronic hypoxemic respiratory failure due to restriction from spine disease and chronic pleural disease * sacral erythema without open skin wounds at the time of admission * right-sided carotid artery atherosclerosis less than 70% by Doppler ultrasound * chron * back pain, stable * chronic BPH CONSULTANTS: Dr. Maxx Damon PROCEDURES: Carotid Doppler ultrasound showing less than 70% atherosclerotic plaque and right carotid HOSPITAL COURSE SUMMARY: This patient who is fairly debilitated from generalized weakness and spine disease, using a walker and electric scooter at home, developed right hand weakness and decreased sensation. This is making it very difficult for him to use his walker and his scooter. He presented to the ER was found to not be safe for transfers and ambulation so was admitted to the hospital. The etiology of the right hand weakness is uncertain. At the time of admission he had minimal movement of the fingers in the right hand but had good strength at the wrist elbow and shoulder. Fingers 2 through 5 for all involved. The thumb was also very weak but the thumb was also extremely painful with acute osteoarthritis symptoms. In terms of sensation the patient had intact sensation objectively but decreased sensation subjectively in fingers 2 through 5 but not the thumb. There was no sensory abnormality proximal to the fingers. There is no abnormality on Tinel's testing. The case was reviewed with the Neurology moving consultant and it was clinically uncertain as to the site of origin of his weakness and change in sensory symptoms. It was felt unlikely to be stroke. However the patient is unable to tolerate MRI imaging so we could not formally assess that. With a small possibility of stroke we did look at his carotid arteries and was noted that he has some mild right stenosis less than 70 % but no left-sided stenosis. This was not felt to be involved in his acute presenting symptoms however due to atherosclerosis he was started on aspirin and the Lipitor and should continue these therapies. The patient did work with physical and occupational therapy here. During the hospital stay his strength has improved somewhat and he is moving his fingers reasonably well can make a complete fist and complete extension of his fingers. 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 The patient in addition to the above had severe generalized postural weakness and instability here. He was not orthostatic. He was however a 2 person assist for transfers and had minimal endurance. Given his overall limitations it was felt that he needs ongoing fall risk precautions and supervision as well as ongoing physical occupational therapy. He has not felt safe for return to his independent living apartment at this time. We have arranged for him to be transferred to the [facility] for ongoing rehabilitation. The patient is in agreement with this plan. He is medically stable for discharge at this time PENDING TEST RESULTS: None MEDICATION CHANGES: Addition of aspirin 81 mg daily Addition of Lipitor 10 mg daily FOLLOW-UP PLAN: At this time patient is transferred to [facility] for ongoing physical therapy and occupational therapy rehabilitation Management there by the facility geriatricians Greater than 35 minutes bedside and care coordination time today
--- NOTE | 2018-02-22 11:28 | ASMTLACE ---
LACE Length of stay for Answers: 3 days current admission Acuity / Level of Answers: Yes Care: Did the patient have an inpatient admission? Comorbidities - select Answers: Chronic pulmonary disease all that apply Congestive heart failure Opioid dependence / Chronic pain Other Notes: BPH, HTN # of Emergency department Answers: 1-2 visits in the last 6 months Score: 16 Date Signed: 02/22/2018 11:27 AM Electronically Signed By:Jaja Mcmullen RN
--- NOTE | 2018-02-22 11:56 | ASMTDCNOTE ---
Case Management Discharge Discharge Order Complete? Answers: Yes Patient to Obtain Answers: Other Notes: [facility] Medications Transportation Arranged Answers: Other Notes: [place] [facility] will Pick (Date 02/22/2018 02:30 AM & Time) Case Management Transport Answers: Yes Form Complete Faxed Final Orders Answers: Yes Agency/Facility Transfer Answers: Yes Report Printed & Faxed to Receiving Agency Family Notified Answers: Yes Discharge Comments Notes: D/w , final orders faxed. [facility] at notified, RN to call report. CM notified per pt request. Date Signed: 02/22/2018 11:31 AM Electronically Signed By:Jaja Mcmullen RN
--- NOTE | 2018-02-23 10:53 | ASDISCHSUM ---
Discharge Information Plan Status:SNF Medically Cleared to Leave: Discharge Date:02/22/2018 02:53 PM CM D/C Disposition:[facility] Facility ADT D/C Disposition:[facility] Facility Projected Discharge Date:02/22/2018 11:00 AM Transportation at D/C:Wheelchair Van Discharge Delay Reason: Follow-Up Date:02/22/2018 11:00 AM Discharge Slot: Final Diagnosis: Placement Information Referral Type:*Mcfp/SNF Referral ID:[id number] Provider Name:[facility] Address 1:[address] Address 2: City:[place] Selection Factors: State:[place] Patient Contact Information Contact Name:MAGALYS Relationship: Address:[address] [place] Work Phone: City:[place] Alternate Phone: [facility]/Zip Code:[place] [address] Email: Financial Information Financial Class:Medicare Primary Plan Desc:MEDICARE INPATIENT Primary Plan Number:[id number] Secondary Plan Desc:[employer] [place] [facility] Secondary Plan Number:[id number] Assessment Information [facility] CM Progress Note CM Note CM Note Notes: Reviewed chart for d/c planning purposes. Patient lives with at the [facility]. Admitted for pain/weakness. Still awaiting physical therapy input - OT recommending SNF. On patient's last admission in 2016, d/c'd with [facility]. Patient may benefit from SNF stay up on d/c. WIll follow-up when able. Plan: TBD - Potentially SNF. Date Signed: 02/19/2018 12:40 PM Electronically Signed By:Depea Reagan RN LACE TONG Length of stay for Answers: 3 days current admission Acuity / Level of Answers: Yes Care: Did the patient have an inpatient admission? Comorbidities - select Answers: Chronic pulmonary disease all that apply Congestive heart failure Opioid dependence / Chronic pain Other Notes: BPH, HTN # of Emergency department Answers: 1-2 visits in the last 6 months Score: 16 Date Signed: 02/22/2018 11:27 AM Electronically Signed By:Jaja Mcmullen RN [facility] Progress Note CM Note CM Note Notes: PT/OT rec SNF, pt reports he has been to [facility] and would like a referral there. Pt also discusses hiring 24/hr care to get home, which the OT and PT were updated on. At the end of the day this CM met w pt to complete PASRR, pt does not know for what diagnosis/how long he has been on Remeron. Pt is accepted at [facility] and by the end of the day pt is not ready to make a decision about where to d/c. Pt reports his son is local, this CM did not have a chance to call son as pt needs further support if he is going to hire help at home. CM to follow. Date Signed: 02/21/2018 04:04 PM Electronically Signed By:GRADY Gilliam Case Management Discharge Plan Note Case Management Discharge Discharge Order Complete? Answers: Yes Patient to Obtain Answers: Other Notes: [facility] Medications Transportation Arranged Answers: Other Notes: [facility] will Pick (Date 02/22/2018 02:30 AM & Time) Case Management Transport Answers: Yes Form Complete Faxed Final Orders Answers: Yes Agency/Facility Transfer Answers: Yes Report Printed & Faxed to Receiving Agency Family Notified Answers: Yes Discharge Comments Notes: D/w MD, final orders faxed. [facility] at notified, RN to call report. CM notified per pt request. Date Signed: 02/22/2018 11:31 AM Electronically Signed By:Jaja Mcmullen RN Intervention Information Intervention Type:*Incorrect Registration Date of Service:02/19/2018 07:05 AM Patient Type:Inpatient Staff Member:JIGNA Romero, Stella Hours: Discipline: Severity: Comment:
== END 2018-02-22 14:53 | DRG 556 ==
LOC: EDUNIT# → INTOOBSV 19:02 → F3E 20:38 → OBSVTOIN 02-19 18:13
PROVIDERS: ADMIT Internal Medicine; ATTEND Internal Medicine
DX: M62.81 Muscle weakness (generalized) (principal); J96.11 Chronic respiratory failure with hypoxia; M19.041 Primary osteoarthritis, right hand; R26.9 Unspecified abnormalities of gait and mobility; I65.21 Occlusion and stenosis of right carotid artery; N40.0 Benign prostatic hyperplasia without lower urinary tract symptoms; I10 Essential (primary) hypertension; G89.29 Other chronic pain; J44.9 Chronic obstructive pulmonary disease, unspecified; Z99.81 Dependence on supplemental oxygen; Z66 Do not resuscitate
CPT/HCPCS: 82435-PO; 82565-PO; 82947-PO; 84132-PO; 84295-PO; 84520-PO; 85014-PO; 96374; 97110-GO; 97116-GP; 97162-GP; 97166-GO; 97530-GO; 97530-GP; 97535-GO; G0378; G8978-GP-CM; G8979-GP-CJ; G8987-GO-CL; G8988-GO-CK; J0360; J1885; J7613; Q9967

== ENCOUNTER 2018-03-03 16:34 | Emergency (ER) | payer OTHER, BC ==
--- NOTE | 2018-03-03 17:40 | EDPHY ---
H & P Time Seen by Provider: 03/03/18 16:51 HPI/ROS: Chief complaint. Med clearance for readmission to [facility]. Patient is an 87-year-old male who was admitted to the hospital on February 19 with right hand weakness. Diagnosis was not clear and symptoms improved. He was discharged to [facility] for rehabilitation. He was at [facility] until yesterday and then decided he would like to return home to the [facility] where his and he have been living. The home care nurse at the [facility] evaluated the patient and recommended readmission to [facility]. The patient is in agreement. [facility] requires re-evaluation inability to ambulate prior to readmission. Again he left [facility] yesterday. Patient has no change in his health since yesterday. He has no fever or chest pain or shortness of breath or abdominal pain. No change in the weakness to his right hand. Patient has no complaints ROS 10 systems were reviewed and negative with the exception of the elements mentioned in the history of present illness Past Medical/Surgical History: Back surgery, Whipple procedure, oxygen at night, self caths for BPH, dyslipidemia Social History: , nonsmoker, no alcohol Smoking Status: Never smoked Physical Exam: General Appearance: Alert well-developed male no distress vital signs are stable Eyes: Pupils equal and round no pallor or injection. ENT, Mouth: Mucous membranes are moist. Respiratory: There are no retractions, lungs are clear to auscultation. Cardiovascular: Regular rate and rhythm. Gastrointestinal: Abdomen is soft and nontender, no masses, bowel sounds normal. Neurological: Awake and alert, sensory and motor exams grossly normal. Skin: Warm and dry, no rashes. Musculoskeletal: Neck is supple nontender. Extremities symmetrical, full range of motion. Good range of motion about the right hand though some difficulty in bringing the fingers together of the right hand. This has been stable and improving since his admission February 19 Psychiatric: Patient is oriented X 3, there is no agitation. Constitutional: Initial Vital Signs Temperature (C) 37.2 C 03/03/18 16:42 Heart Rate 91 03/03/18 16:42 Respiratory Rate 18 03/03/18 16:42 Blood Pressure 176/99 H 03/03/18 16:42 O2 Sat (%) 97 03/03/18 16:42 O2 Delivery Mode Nasal Cannula O2 (L/minute) 3 Allergies/Adverse Reactions: No Known Allergies Allergy (Verified 03/03/18 16:41) Home Medications: Medication Instructions Recorded Ferrous Sulfate [Ferrous Sulf 325 325 mg PO DAILY 09/01/16 MG (*)] Multivitamins [Multivitamin (*)] 1 each PO DAILY 09/01/16 Pregabalin [Lyrica] 150 mg PO BID 09/01/16 Sennosides/Docusate Sodium 1 each PO DAILY PRN 09/01/16 [Senna-S Tablet] Tamsulosin HCl [Flomax 0.4 MG (*)] 0.4 mg PO DAILY 09/01/16 Vitamin B Complex [B Complex] 1 each PO DAILY 09/01/16 Mirtazapine 15 mg PO HS 02/18/18 Omeprazole 20 mg PO DAILY 02/18/18 Potassium Chloride [Klor-Con M10] 10 meq PO DAILY 02/18/18 traMADol HCL [Tramadol HCl] 50 mg PO HS PRN 02/18/18 Acetaminophen [Tylenol 325mg (*)] 650 mg PO Q4HRS PRN tab 02/22/18 Albuterol [Proventil Neb] 3 ml IH Q4HRS PRN deyvial 02/22/18 Aspirin EC [Aspirin EC 81 mg (*)] 81 mg PO DAILY tab 02/22/18 Atorvastatin Calcium [Lipitor 10 10 mg PO DAILY tab 02/22/18 mg (*)] Sodium Cl Nasal [[place] (*)] 1 spray EACHNARE PRN PRN btl 02/22/18 Trolamine Salicylate [Aspercreme] 1 quyen TP TID cream 02/22/18 celeCOXIB [CeleBREX] 100 mg PO BID #1 cap 02/22/18 Medical Decision Making ED Course/Re-evaluation: Patient healthcare or medical discussing care with [facility] Patient is ambulated with walker and his ambulation is at baseline. Patient has been accepted back to [facility]. Differential Diagnosis: Patient is stable without evidence of acute medical problems. Plan is admission back to care home facility. Plan is also to continue his regular medications as prescribed Departure - Departure Disposition: Home, Routine, Self-Care Clinical Impression: Hand weakness Condition: Good Instructions: Fall Prevention for Older Adults (ED) Additional Instructions: Continue regular medications as prescribed Return for worsening symptoms Referrals: NONE *PRIMARY CARE P,. [Primary Care Provider] - As per Instructions
[2018-03-03 18:14] VITALS: BP 171/90
--- NOTE | 2018-03-03 19:47 | ASMTCMCOM ---
CM Note CM Note Notes: Pt presented to the ED via EMS from home for reported increased weakness. Pt voluntarily elected to DC from [facility] yesterday and return back home to [facility]. [facility]. [facility] did not recommend that pt DC back home at that time but pt and pt's son Juanito felt pt was safe to return home where pt lives w/his (who reportedly might have mild dementia). [facility] staff saw pt yesterday and today and were concerned about pt's lethargy and weakness and recommended he return to [facility]. Pt's son Juanito went to see pt today and also agreed that pt needed to return to . staff reportedly said they could re-accept pt back to their facility but they wanted pt checked out in the ED first to rule out any acute change of condition, etc. Pt assessed and ready to DC back to [facility]. This CM spoke w/Juanito and patient and all are in agreement with plan. This CM coordinated w/Med at ; the ED Provider Report w/order for pt to return to SNF and resume home meds sent via [employer] (although it had to br Print Attached due to [employer] not crossing over at the time); confirmed it was received. RN provided # to call and give RN report. This CM eventually was able to connect with Tereso Bocanegra /[facility] ([phone]); they said they will continue to followup w/Juanito re:pt returning to [place] and/or pt's needing additional care at home. Juanito was able to come and transport pt to . CM available for further assistance if needed. Date Signed: 03/03/2018 07:46 PM Electronically Signed By:Jes Stevens, RN
--- NOTE | 2018-03-03 19:49 | ASDISCHSUM ---
Discharge Information Plan Status:SNF Medically Cleared to Leave: Discharge Date:03/03/2018 06:41 PM D/C Disposition:Detention Facility ADT D/C Disposition:Home, Routine, Self-Care Projected Discharge Date:03/03/2018 07:00 PM Transportation at D/C:Family Discharge Delay Reason: Follow-Up Date:03/03/2018 07:00 PM Discharge Slot: Final Diagnosis: Placement Information Referral Type:*Assisted/SNF Referral ID:[id number] Provider Name:[facility] Address 1:[address] Address 2: City:[place] Selection Factors: State:[place] Patient Contact Information Contact Name:LORRI Relationship:Son Address:[address] City:[place] Alternate Phone: State/Zip Code:[place] [address] Email: Financial Information Financial Class:Medicare Primary Plan Desc:MEDICARE OUTPATIENT Primary Plan Number:[id number] Secondary Plan Desc:[employer]AL [employer]AN Secondary Plan Number:[id number] Assessment Information [facility] CM Progress Note CM Note CM Note Notes: Pt presented to the ED via EMS from home for reported increased weakness. Pt voluntarily elected to DC from [facility] yesterday and return back home to [facility]. [facility] did not recommend that pt DC back home at that time but pt and pt's son Juanito felt pt was safe to return home where pt lives w/his (who reportedly might have mild dementia). [facility] staff saw pt yesterday and today and were concerned about pt's lethargy and weakness and recommended he return to [facility]. Pt's son Juanito went to see pt today and also agreed that pt needed to return to . staff reportedly said they could re-accept pt back to their facility but they wanted pt checked out in the ED first to rule out any acute change of condition, etc. Pt assessed and ready to DC back to [facility]. This CM spoke w/Juanito and patient and all are in agreement with plan. This CM coordinated w/Med at ; the ED Provider Report w/order for pt to return to SNF and resume home meds sent via [employer] (although it had to br Print Attached due to [employer] not crossing over at the time); confirmed it was received. RN provided # to call and give RN report. This CM eventually was able to connect with Tereso mcfarland/[facility] ([phone]); they said they will continue to followup w/Juanito re:pt returning to [place] and/or pt's needing additional care at home. Juanito was able to come and transport pt to . CM available for further assistance if needed. Date Signed: 03/03/2018 07:46 PM Electronically Signed By:Jes Stevens RN Intervention Information
== END 2018-03-03 18:41 ==
LOC: EDUNIT#
DX: R53.1 Weakness (principal); E78.5 Hyperlipidemia, unspecified

== ENCOUNTER 2018-03-24 07:33 | Emergency (ER) | payer OTHER, BC ==
--- NOTE | 2018-03-24 07:43 | EDPHY ---
H & P Time Seen by Provider: 03/24/18 07:42 HPI/ROS: CHIEF COMPLAINT: Shortness of breath, cough, hypoxia HISTORY OF PRESENT ILLNESS: Patient is an 87-year-old man with a history of COPD and CHF. He has a DNR she had with him that requests he not be transported to the hospital and not receive antibiotics or fluids but comfort care only. This morning residential staff noticed that he was somnolecent and hypoxic. They turned up his oxygen and gave him a dose of albuterol which did not seem to help. They called EMS. EMS noticed rhonchi and wheezes and administered a a 2nd dose of albuterol and placed him on a face mask. They also administered Narcan and feel that he became slightly more alert after the Narcan. He does take tramadol for chronic back and neck pain. Patient shakes his head yes when asked diffuse having trouble breathing. He shakes his head no when asked if he is having any pain. Paramedics state that he has not had recent fevers. Severity: Severe Modifying factors: See above REVIEW OF SYSTEMS: Unable to obtain secondary to condition EXAM: GENERAL: Moderate distress, hypoxic, breathing through an open mouth, shakes his head yes and no to questions HEAD: Atraumatic, normocephalic. EYES: Pupils equal round and reactive to light, extraocular movements intact, sclera anicteric, conjunctiva are normal. ENT: TMs normal, nares patent, oropharynx clear without exudates. Slightly dry mucous membranes. NECK: Normal range of motion, supple without lymphadenopathy or JVD. LUNGS: Bilateral rhonchi right worse than left hypoxic requiring a OxyMask at 10 L to stay above 90% HEART: Regular rate and rhythm without murmurs, rubs or gallops. ABDOMEN: Soft, nontender, normoactive bowel sounds. No guarding, no rebound. No masses appreciated. BACK: No CVA tenderness, no spinal tenderness, step-offs or deformities EXTREMITIES: Normal range of motion, mild peripheral edema. No clubbing or cyanosis. NEUROLOGICAL: Cranial nerves II through XII grossly intact. is able to whisper yes and no. 3/5 strength diffusely, movement in all extremities, normal sensation, normal reflexes PSYCH: Somnolecent, shakes his head yes and no to questioning SKIN: Warm, dry, normal turgor, no visible rashes or lesions. Source: EMS, [facility] records, Old records Exam Limitations: Clinical condition - Medical/Surgical History Hx Asthma: No Hx Chronic Respiratory Disease: Yes Hx Diabetes: No Hx Cardiac Disease: No Hx Renal Disease: No Hx Cirrhosis: No Hx Alcoholism: No Hx HIV/AIDS: No Hx Splenectomy or Spleen Trauma: No Other PMH: CHF, COPD on 2 L at baseline, hypertension, BPH self caths, biliary adenoma Whipple 2010, chronic neck and back pain, anemia, chronic malnutrition, spinal stenosis, asbestosis, chronic kidney disease, appendectomy - Family History Significant Family History: No pertinent family hx - Social History Smoking Status: Never smoked Alcohol Use: None Constitutional: Initial Vital Signs Temperature (C) 36.7 C 03/24/18 07:49 Heart Rate 121 H 03/24/18 07:49 Respiratory Rate 30 H 03/24/18 07:49 Blood Pressure 178/102 H 03/24/18 07:49 O2 Sat (%) 92 03/24/18 07:49 O2 Delivery Mode Non-Rebreather Mask O2 (L/minute) 10 Allergies/Adverse Reactions: No Known Allergies Allergy (Verified 03/03/18 16:41) Home Medications: Medication Instructions Recorded Ferrous Sulfate [Ferrous Sulf 325 325 mg PO DAILY 09/01/16 MG (*)] Multivitamins [Multivitamin (*)] 1 each PO DAILY 09/01/16 Pregabalin [Lyrica] 150 mg PO BID 09/01/16 Sennosides/Docusate Sodium 1 each PO DAILY PRN 09/01/16 [Senna-S Tablet] Tamsulosin HCl [Flomax 0.4 MG (*)] 0.4 mg PO DAILY 09/01/16 Vitamin B Complex [B Complex] 1 each PO DAILY 09/01/16 Mirtazapine 15 mg PO HS 02/18/18 Omeprazole 20 mg PO DAILY 02/18/18 Potassium Chloride [Klor-Con M10] 10 meq PO DAILY 02/18/18 traMADol HCL [Tramadol HCl] 50 mg PO HS PRN 02/18/18 Acetaminophen [Tylenol 325mg (*)] 650 mg PO Q4HRS PRN tab 02/22/18 Albuterol [Proventil Neb] 3 ml IH Q4HRS PRN deyvial 02/22/18 Aspirin EC [Aspirin EC 81 mg (*)] 81 mg PO DAILY tab 02/22/18 Atorvastatin Calcium [Lipitor 10 10 mg PO DAILY tab 02/22/18 mg (*)] Sodium Cl Nasal [[place] (*)] 1 spray EACHNARE PRN PRN btl 02/22/18 Trolamine Salicylate [Aspercreme] 1 quyen TP TID cream 02/22/18 celeCOXIB [CeleBREX] 100 mg PO BID #1 cap 02/22/18 Medical Decision Making - Diagnostics Imaging: Discussed imaging studies w/ inbound call center agent Radiologist ED Course/Re-evaluation: We are obtaining lab work but are trying to honor the patient's most form. We spoke with the residential who says that he probably should not have been transported. They tried to contact family after he was transported. We are also trying to contact family. 8:20 a.m. nursing staff was able to speak with the patient's son. He seems somewhat indecisive about treatment and said that he would be "okay" with antibiotics but his mom who was the one listed on the form but she is not a "morning person". At this point we will continue to withhold antibiotics or Lasix as directed by the form unless the patient's or son come here and can tell us directly to oppose what is on the MOST form. I suspect the patient has more fluid overload as opposed to pneumonia based on his lack of fever or white count and his hypertension and lower extremity edema. 8:30 a.m. I spoke with the hospitalist service. They agree with not treating the patient at this time and would also prefer to honor his wishes and not admitting to the hospital. Will consult case management. We are still waiting for family. 11:00 a.m. I had a long discussion with the patient's and son and daughter- in-law. They were not present when the MOST form was completed. In the past the patient has been DNR but has not requested not to have antibiotics or medications or fluids. It is difficult to tell whether he has fluid overload versus pneumonia. His blood pressure has normalized here and on the residential records he has a history of CHF but during his most recent admission he had a normal echocardiogram. Family is never heard that he has had CHF or heart problems before. He does have slight edema in his extremities with family states is baseline. His x-ray could be consistent with pneumonia however he does not have a white count or fever or elevated lactate. We discussed options as far as treat verses not treat and provide comfort care only. I do think he would pass away in the next several days to weeks if he does not receive treatment. He is requiring significantly increased oxygen levels. Family would like to talk about this with their siblings on the phone and get back to me. 11:30 a.m. Discussed the case with hospital service who will admit. 11:35 a.m. patient's family has decided now that they would like to provide comfort care only and abide by the conditions outlined in his MOST form. I agree that this is reasonable. Will likely arrange for him to go back to [facility] and have hospice consultation there. 12:15 p.m. case management feels that they should be able to arrange hospice care from the residential. 1:50 p.m. the patient has been accepted back to [facility] and hospice has been arranged. Differential Diagnosis: Partial list of the Differential diagnosis considered include but were not limited to; CHF exacerbation, pleural effusion, pneumonia and although unlikely based on the history and physical exam, I also considered PE, dissection, acute coronary disease. - Data Points Laboratory Results: Laboratory Results 03/24/18 07:45 03/24/18 07:45 Medications Given: Discontinued Medications Hydromorphone HCl (Dilaudid) 0.5 mg IVP EDNOW ONE Stop: 03/24/18 13:58 Last Admin: 03/24/18 14:05 Dose: 0.5 mg Departure - Departure Disposition: Home, Routine, Self-Care Clinical Impression: Pleural effusion Pneumonia Qualifiers: Pneumonia type: due to unspecified organism Laterality: left Lung location: unspecified part of lung Qualified Code(s): J18.9 - Pneumonia, unspecified organism Condition: Critical Instructions: Pleural Effusion (ED), Pneumonia (ED) Referrals: Patient,NotPresent [Unknown] - As per Instructions
[2018-03-24 08:01] LABS: PLATELET COUNT 164 10^3/uL (150-400)
[2018-03-24 08:12] LABS: PROTIME(PATIENT) 13.4 SEC (12.0-15.0)
[2018-03-24 12:52] VITALS: BP 124/66
[2018-03-24] MEDS ORDERED: HYDROmorphONE/DILAUDID 2 MG/ML INJ IVP ONE (13:57)
--- NOTE | 2018-03-25 11:21 | ASMTCMCOM ---
CM Note CM Note Notes: Pt presented to the ED vis EMS from [facility] for SOB, somnolence, hypoxia and AMS. Pt's Shavon Garcia, son Juanito Garcia, and [id number] Elayne Morillo later arrived to the ED. The ED Provider Dr Boss spent extensive time w/the family discussing treatments options and what that would look like, realistic expectations, etc. Pt had recently signed a new MOST/Advance Directive that stated he only wanted comfort care measures. Eventually it was decided by the family to not pursue further treatment and to consider enrolling pt into Hospice. This CM discussed various Hospice agencies and options (returning to [facility] w/hospice, going to an inpatient hospice care center, or even returning to [facility]. Living w/Shavon and w/Hospice. It was decided to try to find an agency that could start pt on Hospice today and have pt return to . [facility] was able to accept pt and enroll pt today. Raphael from [facility] arrived to the ED and met w/family; family enrolled pt into Hospice. Because the pt didn't have [facility] paperwork completed, a proxy form was completed, naming pt's son, Juanito, as proxy. Pt was discharged back to [facility] and transported via EMS stretcher. RN called and gave report. DC packet including home medication list and ED Transfer packet were faxed to Chela at [facility] per her request. Juanito Sands and Elayne were provided various emotional support and hospice informational hand-outs. CM available for further assistance if needed. Date Signed: 03/25/2018 11:20 AM Electronically Signed By:Jes Stevens RN
--- NOTE | 2018-03-25 11:23 | ASDISCHSUM ---
Discharge Information Plan Status:Hospice-SNF Medically Cleared to Leave: Discharge Date:03/24/2018 04:10 PM D/C Disposition:[facility] ADT D/C Disposition:Home, Routine, Self-Care Projected Discharge Date:03/24/2018 01:00 PM Transportation at D/C:ALS/BLS Discharge Delay Reason: Follow-Up Date:03/24/2018 01:00 PM Discharge Slot: Final Diagnosis: Placement Information Referral Type:*Hospice Referral ID:[id number] Provider Name:[facility] Address 1:[address] Phone Number: Address 2: Fax Number: City:[place] Selection Factors: State:[place] Patient Contact Information Contact Name:GUERDAONDINA Relationship:Son Address:[address] City:[facility] Phone: State/Zip Code:[place] [address] Email: Financial Information Financial Class:Medicare Primary Plan Desc:MEDICARE OUTPATIENT Primary Plan Number:[id number] Secondary Plan Desc:[employer] FEDERAL PLAN Secondary Plan Number:[id number] Assessment Information [facility] CM Progress Note CM Note CM Note Notes: Pt presented to the ED vis EMS from [facility] for SOB, somnolence, hypoxia and AMS. Pt's Shavon Garcia, son Juanito Garcia, and [id number] Elayne Morillo later arrived to the ED. The ED Provider Dr Boss spent extensive time w/the family discussing treatments options and what that would look like, realistic expectations, etc. Pt had recently signed a new MOST/Advance Directive that stated he only wanted comfort care measures. Eventually it was decided by the family to not pursue further treatment and to consider enrolling pt into Hospice. This CM discussed various Hospice agencies and options (returning to [facility] w/hospice, going to an inpatient hospice care center, or even returning to [facility]. [facility] w/Shavon and w/Hospice. It was decided to try to find an agency that could start pt on Hospice today and have pt return to . [facility] was able to accept pt and enroll pt today. Raphael from [facility] arrived to the ED and met w/family; family enrolled pt into Hospice. Because the pt didn't have [facility] paperwork completed, a proxy form was completed, naming pt's son, Juanito, as proxy. Pt was discharged back to [facility] and transported via EMS stretcher. RN called and gave report. DC packet including home medication list and ED Transfer packet were faxed to Chela at [facility] per her request. Juanito Sands and Elayne were provided various emotional support and hospice informational hand-outs. CM available for further assistance if needed. Date Signed: 03/25/2018 11:20 AM Electronically Signed By:Jes Stevens RN Intervention Information
== END 2018-03-24 16:10 | disposition home or self-care (01) ==
LOC: EDUNIT#
DX: J18.9 Pneumonia, unspecified organism (principal); J90 Pleural effusion, not elsewhere classified; J44.1 Chronic obstructive pulmonary disease with (acute) exacerbation; I10 Essential (primary) hypertension; N18.9 Chronic kidney disease, unspecified; I50.9 Heart failure, unspecified; Z79.899 Other long term (current) drug therapy
CPT/HCPCS: 71045; 96374; 99285; J1170